=== PATIENT | male | born 1970 | race Caucasian/White ===

== ENCOUNTER 2020-02-11 09:26 | Emergency (ER) | payer MEDICARE, OTHER ==
[2020-02-11 09:35] VITALS: BP 115/63; PULSE 73; TEMP 98.5
--- NOTE | 2020-02-11 09:37 | ED ---
General Adult HPI - General Stated complaint: Weakness Time Seen by Provider: 02/11/20 09:26 Source: patient, EMS, RN notes reviewed, old records reviewed Mode of arrival: EMS Limitations: no limitations - History of Present Illness Initial comments: This is a 49-year-old male with past medical history significant for diabetes high cholesterol and he states maybe high blood pressure. Patient also has a history of hydrocephalus. Patient states this morning he got up and felt weak and felt like his legs were weaker than normal. Patient states he ate some toast and did start feeling somewhat better. Patient states prior to eating the toast he did have some dry heaves but did not vomit. Patient denies any abdominal pain. Patient denies being nauseated currently. Patient denies any chest pain difficulty breathing shortness of breath. Patient states he has a very mild headache but denies any numbness or weakness. Patient denies any recent trauma. Patient denies any fever chills or cough. - Related Data Home Medications Medication Instructions Recorded Confirmed Febuxostat 40 mg PO DAILY 02/11/20 02/11/20 Fenofibrate Nanocrystallized 145 mg PO DAILY 02/11/20 02/11/20 [Fenofibrate] Furosemide [Lasix] 40 mg PO DAILY 02/11/20 02/11/20 Hydrochlorothiazide 12.5 mg PO DAILY 02/11/20 02/11/20 [hydroCHLOROthiazide] Levothyroxine Sodium [Synthroid] 150 mcg PO DAILY 02/11/20 02/11/20 Losartan-Hctz 50-12.5 mg [Hyzaar 1 tab PO DAILY 02/11/20 02/11/20 50-12.5] Sertraline HCl [Zoloft] 150 mg PO DAILY 02/11/20 02/11/20 Simvastatin 40 mg PO DAILY 02/11/20 02/11/20 metFORMIN HCL [Glucophage] 500 mg PO BID 02/11/20 02/11/20 Allergies Allergy/AdvReac Type Severity Reaction Status Date / Time No Known Allergies Allergy Verified 02/11/20 11:05 Review of Systems ROS Statement: Those systems with pertinent positive or pertinent negative responses have been documented in the HPI. ROS Other: All systems not noted in ROS Statement are negative. Past Medical History Past Medical History: Diabetes Mellitus, Hyperlipidemia, Hypertension History of Any Multi-Drug Resistant Organisms: None Reported Past Surgical History: No Surgical Hx Reported Past Psychological History: Depression Smoking Status: Never smoker Past Alcohol Use History: None Reported Past Drug Use History: None Reported General Exam - General Exam Comments Initial Comments: GENERAL: Patient is well-developed and well-nourished. Patient is nontoxic and well- hydrated and is in no acute distress. ENT: Neck is soft and supple. No significant lymphadenopathy is noted. Oropharynx is clear. Moist mucous membranes. Neck has full range of motion without eliciting any pain. There is no thyroid enlargement and no masses were felt. EYES: The sclera were anicteric and conjunctiva were pink and moist. Extraocular movements were intact and pupils were equal round. Eyelids were unremarkable. PULMONARY: Unlabored respirations. Good breath sounds bilaterally. No audible rales rhonchi or wheezing was noted. CARDIOVASCULAR: There is a regular rate and rhythm without any murmurs gallops or rubs. ABDOMEN: Soft and nontender with normal bowel sounds. No palpable organomegaly was noted. There is no palpable pulsatile mass. SKIN: Skin is clear with no lesions or rashes and otherwise unremarkable. NEUROLOGIC: Patient is alert and oriented x3. Cranial nerves II through XII are grossly intact. Motor and sensory are also intact. Normal speech, volume and content. Symmetrical smile. MUSCULOSKELETAL: Normal extremities with adequate strength and full range of motion. LYMPHATICS: No significant lymphadenopathy is noted PSYCHIATRIC: Normal psychiatric evaluation. Limitations: no limitations Course Vital Signs 02/11/20 09:29 Temperature 98.5 F Pulse Rate 73 Respiratory 18 Rate Blood Pressure 115/63 O2 Sat by Pulse 95 Oximetry Medical Decision Making - Medical Decision Making EKG shows normal sinus rhythm at 69 bpm [place] interval 184 QRS is 100 QT interval is 454 QTC is 46. Patient's EKG shows Q waves in leads 3 and aVF. Patient was able to ambulate and felt back to his baseline so patient be di scharged home. Mom will be with the patient and feels as though the patient is back to his baseline as well. - Lab Data Result diagrams: 02/11/20 09:41 02/11/20 09:41 Lab Results 02/11/20 02/11/20 02/11/20 Range/Units 09:41 09:41 09:41 WBC 5.0 (3.8-10.6) k/uL RBC 4.69 (4.30-5.90) m/uL Hgb 12.7 L (13.0-17.5) gm/dL Hct 38.9 L (39.0-53.0) % MCV 82.8 (80.0-100.0) fL MCH 27.2 (25.0-35.0) pg MCHC 32.8 (31.0-37.0) g/dL RDW 14.3 (11.5-15.5) % Plt Count 151 (150-450) k/uL Neutrophils % 73 % Lymphocytes % 18 % Monocytes % 4 % Eosinophils % 3 % Basophils % 1 % Neutrophils # 3.7 (1.3-7.7) k/uL Lymphocytes # 0.9 L (1.0-4.8) k/uL Monocytes # 0.2 (0-1.0) k/uL Eosinophils # 0.1 (0-0.7) k/uL Basophils # 0.0 (0-0.2) k/uL PT 11.0 (9.0-12.0) sec INR 1.1 (<1.2) APTT 24.8 (22.0-30.0) sec Sodium (137-145) mmol/L Potassium (3.5-5.1) mmol/L Chloride (98-107) mmol/L Carbon Dioxide (22-30) mmol/L Anion Gap mmol/L BUN (9-20) mg/dL Creatinine (0.66-1.25) mg/dL Est GFR (CKD-EPI)AfAm (>60 ml/min/1.73 sqM) Est GFR (CKD-EPI)NonAf (>60 ml/min/1.73 sqM) Glucose (74-99) mg/dL Plasma Lactic Acid Alfredo (0.7-2.0) mmol/L Calcium (8.4-10.2) mg/dL Magnesium (1.6-2.3) mg/dL Total Bilirubin (0.2-1.3) mg/dL AST (17-59) U/L ALT (4-49) U/L Alkaline Phosphatase (38-126) U/L Troponin I (0.000-0.034) ng/mL Total Protein (6.3-8.2) g/dL Albumin (3.5-5.0) g/dL Urine Color Light Yellow Urine Appearance Clear (Clear) Urine pH 7.0 (5.0-8.0) Ur Specific [place] 1.005 (1.001-1.035) Urine Protein Negative (Negative) Urine Glucose (UA) Negative (Negative) Urine Ketones Negative (Negative) Urine Blood Negative (Negative) Urine Nitrite Negative (Negative) Urine Bilirubin Negative (Negative) Urine Urobilinogen 2.0 (<2.0) mg/dL Ur Leukocyte Esterase Negative (Negative) 02/11/20 02/11/20 02/11/20 Range/Units 09:41 09:41 09:41 WBC (3.8-10.6) k/uL RBC (4.30-5.90) m/uL Hgb (13.0-17.5) gm/dL Hct (39.0-53.0) % MCV (80.0-100.0) fL MCH (25.0-35.0) pg MCHC (31.0-37.0) g/dL RDW (11.5-15.5) % Plt Count (150-450) k/uL Neutrophils % % Lymphocytes % % Monocytes % % Eosinophils % % Basophils % % Neutrophils # (1.3-7.7) k/uL Lymphocytes # (1.0-4.8) k/uL Monocytes # (0-1.0) k/uL Eosinophils # (0-0.7) k/uL Basophils # (0-0.2) k/uL PT (9.0-12.0) sec INR (<1.2) APTT (22.0-30.0) sec Sodium 141 (137-145) mmol/L Potassium 3.0 L (3.5-5.1) mmol/L Chloride 99 (98-107) mmol/L Carbon Dioxide 33 H (22-30) mmol/L Anion Gap 9 mmol/L BUN 18 (9-20) mg/dL Creatinine 0.65 L (0.66-1.25) mg/dL Est GFR (CKD-EPI)AfAm >90 (>60 ml/min/1.73 sqM) Est GFR (CKD-EPI)NonAf >90 (>60 ml/min/1.73 sqM) Glucose 132 H (74-99) mg/dL Plasma Lactic Acid Alfredo 1.8 (0.7-2.0) mmol/L Calcium 9.4 (8.4-10.2) mg/dL Magnesium 2.0 (1.6-2.3) mg/dL Total Bilirubin 0.8 (0.2-1.3) mg/dL AST 46 (17-59) U/L ALT 21 (4-49) U/L Alkaline Phosphatase 54 (38-126) U/L Troponin I <0.012 (0.000-0.034) ng/mL Total Protein 7.2 (6.3-8.2) g/dL Albumin 4.2 (3.5-5.0) g/dL Urine Color Urine Appearance (Clear) Urine pH (5.0-8.0) Ur Specific [place] (1.001-1.035) Urine Protein (Negative) Urine Glucose (UA) (Negative) Urine Ketones (Negative) Urine Blood (Negative) Urine Nitrite (Negative) Urine Bilirubin (Negative) Urine Urobilinogen (<2.0) mg/dL Ur Leukocyte Esterase (Negative) Disposition Clinical Impression: Weakness, Hypokalemia Disposition: HOME SELF-CARE Condition: Good Instructions (If sedation given, give patient instructions): Weakness (ED), Hypokalemia (ED) Is patient prescribed a controlled substance at d/c from ED?: No Referrals: Ifeanyi Medina DO [Primary Care Provider] - 1-2 days Time of Disposition: 11:53
[2020-02-11 10:11] LABS: INR 1.1 (<1.2); Partial Thromboplastin Time 24.8 sec (22.0-30.0)
[2020-02-11 10:14] LABS: Basophils % (A) 1 %; Eosinophils # (A) 0.1 k/uL (0-0.7); Eosinophils % (A) 3 %; HCT 38.9 % (39.0-53.0); HGB 12.7 gm/dL (13.0-17.5); Lymphocytes # (A) 0.9 k/uL (1.0-4.8); Lymphocytes % (A) 18 %; MCH 27.2 pg (25.0-35.0); MCHC 32.8 g/dL (31.0-37.0); MCV 82.8 fL (80.0-100.0); Mean Platelet Volume 9.1; Monocytes # (A) 0.2 k/uL (0-1.0); Monocytes % (A) 4 %; Neutrophils # (A) 3.7 k/uL (1.3-7.7); Neutrophils % (A) 73 %; Platelet Count 151 k/uL (150-450); RBC 4.69 m/uL (4.30-5.90); RDW 14.3 % (11.5-15.5)
[2020-02-11 10:18] LABS: African American GFR (CKD) >90 (>60 ml/min/1.73 sqM); Albumin 4.2 g/dL (3.5-5.0); Blood Urea Nitrogen 18 mg/dL (9-20); Calcium 9.4 mg/dL (8.4-10.2); Carbon Dioxide 33 mmol/L (22-30); Glucose 132 mg/dL (74-99); Non-African American GFR(CKD) >90 (>60 ml/min/1.73 sqM); Sodium 141 mmol/L (137-145); Total Bilirubin 0.8 mg/dL (0.2-1.3); Total Protein 7.2 g/dL (6.3-8.2)
[2020-02-11 10:19] LABS: ALT 21 U/L (4-49); AST 46 U/L (17-59); Alkaline Phosphatase 54 U/L (38-126)
[2020-02-11 10:35] LABS: Appearance,Urine Clear (Clear); Bilirubin,Urine Negative (Negative); Blood,Urine Negative (Negative); Color,Urine Light Yellow; Glucose,Urine (UA) Negative (Negative); Ketones,Urine Negative (Negative); Leukocyte Esterase,Urine Negative (Negative); Nitrite,Urine Negative (Negative); Protein,Urine Negative (Negative); Specific Gravity,Urine 1.005 (1.001-1.035)
[2020-02-11 10:41] LABS: Anion Gap 9 mmol/L; Chloride 99 mmol/L (98-107)
--- NOTE | 2020-02-11 10:54 | XR ---
EXAMINATION TYPE: XR chest 2V DATE OF EXAM: 02/11/2020 COMPARISON: NONE HISTORY: Syncope and weakness. TECHNIQUE: Frontal and lateral views of the chest are obtained. FINDINGS: There is no focal air space opacity, pleural effusion, or pneumothorax seen. The cardiac silhouette size is enlarged. The osseous structures are intact. IMPRESSION: Cardiomegaly without acute pulmonary process.
--- NOTE | 2020-02-11 10:56 | CT ---
EXAMINATION TYPE: CT brain wo con DATE OF EXAM: 02/11/2020 COMPARISON: None. HISTORY: Weakness CT DLP: 1084.4 mGycm. Automated Exposure Control for Dose Reduction was Utilized. TECHNIQUE: CT scan of the head is performed without contrast. FINDINGS: There is no acute intracranial hemorrhage or midline shift identified. Mild ventricular a nd sulcal prominence. Ventricles size slightly more prominent than degree of sulcal effacement, corre late for mild hydrocephalus. Increased CSF prominence posterior aspect posterior fossa felt to reflec t markell cisterna magna. Mild/moderate mucosal thickening in the left maxillary sinus. Remainder parana santana sinuses are clear. Globes are intact bilaterally. IMPRESSION: No acute intracranial hemorrhage or midline shift is seen. Mild generalized atrophy and markell cisterna magna with mild hydrocephalus. Correlation with old outside CT or MRI would be benefici al.
[2020-02-11] MEDS ORDERED: POTASSIUM CHLORIDE ER 20 MEQ TAB.ER PO STA (11:03)
[2020-02-11] MEDS ORDERED: ONDANSETRON 4 MG ODT STARTER PACK 2 TAB BTL PO STA (12:23)
[2020-02-11 12:32] VITALS: RESP 16
== END 2020-02-11 12:30 | disposition home or self-care (01) ==
LOC: EC 09:26
DX: E87.6 Hypokalemia (principal); R53.1 Weakness; F32.9 Major depressive disorder, single episode, unspecified; E11.9 Type 2 diabetes mellitus without complications; E78.5 Hyperlipidemia, unspecified; I10 Essential (primary) hypertension; Z79.84 Long term (current) use of oral hypoglycemic drugs; Z79.890 Hormone replacement therapy; Z79.899 Other long term (current) drug therapy
CPT/HCPCS: 36415; 93005; 80053; 83605; 83735; 84484; 85025; 85610; 85730; 81003; 71046; 70450; 99285; S0119

== ENCOUNTER 2021-11-03 20:07 | Inpatient (IN) | payer MEDICARE, OTHER ==
--- NOTE | 2021-11-03 23:04 | CT ---
EXAMINATION TYPE: CT brain wo con DATE OF EXAM: 11/03/2021 COMPARISON: 02/11/2020 HISTORY: dizzy, AMS. CT DLP: 1098.4 mGycm Automated exposure control for dose reduction was used. Images of the brain obtained without contrast. There is large cisterna magna which is a normal variant. Ventricles have fairly normal size. There is no mass effect or midline shift. No sign of intracranial hemorrhage. The calvarium is intact. No joey dence of cerebral edema. IMPRESSION: No acute intracranial abnormality. No change compared to the old exam. Right maxillary sinusitis note d. This appears new compared to the old exam.
[2021-11-03 23:16] LABS: Anisocytosis Slight; Basophils % (A) 0 %; Eosinophils # (A) 0.2 k/uL (0-0.7); Eosinophils % (A) 5 %; HCT 32.4 % (39.0-53.0); HGB 10.2 gm/dL (13.0-17.5); Hypochromasia Slight; Lymphocytes # (A) 1.1 k/uL (1.0-4.8); Lymphocytes % (A) 32 %; MCH 28.5 pg (25.0-35.0); MCHC 31.6 g/dL (31.0-37.0); MCV 90.1 fL (80.0-100.0); Mean Platelet Volume 10.3; Monocytes # (A) 0.2 k/uL (0-1.0); Monocytes % (A) 6 %; Neutrophils # (A) 1.8 k/uL (1.3-7.7); Neutrophils % (A) 55 %; Poikilocytosis Slight; RBC 3.59 m/uL (4.30-5.90); RDW 17.6 % (11.5-15.5); WBC 3.3 k/uL (3.8-10.6)
[2021-11-03 23:24] LABS: INR 0.9 (<1.2); Partial Thromboplastin Time 28.6 sec (22.0-30.0); Prothrombin Time 10.4 sec (9.0-12.0)
[2021-11-03 23:29] LABS: Platelet Count 103 k/uL (150-450)
[2021-11-03 23:35] LABS: ALT 46 U/L (4-49); AST 63 U/L (17-59); African American GFR (CKD) >90 (>60 ml/min/1.73 sqM); Albumin 3.9 g/dL (3.5-5.0); Alkaline Phosphatase 164 U/L (38-126); Anion Gap 6 mmol/L; Blood Urea Nitrogen 16 mg/dL (9-20); Calcium 9.2 mg/dL (8.4-10.2); Carbon Dioxide 32 mmol/L (22-30); Chloride 113 mmol/L (98-107); Glucose 90 mg/dL (74-99); Non-African American GFR(CKD) >90 (>60 ml/min/1.73 sqM); Potassium 3.6 mmol/L (3.5-5.1); Sodium 151 mmol/L (137-145); Total Bilirubin 0.7 mg/dL (0.2-1.3); Total Protein 6.9 g/dL (6.3-8.2)
[2021-11-04] MEDS ORDERED: NALOXONE 0.4 MG/ML 1 ML VIAL IV PRN (05:54)
--- NOTE | 2021-11-04 05:57 | P.HPIM ---
History of Present Illness H&P Date: 11/04/21 The patient is a 51-year-old male with a PMH of hydrocephalus with developmental disability, 2 DM, hypertension, and hyperlipidemia who presents to the emergency room for fatigue. Patient notes that over the past 24-48 hours, he has felt weaker than usual. Notes that at baseline he uses a cane to ambulate. He notes that he has been having a difficult time walking due to lightheadedness. Report s somewhat of a poor oral intake over the past 2-3 days . Denies experiencing abdominal pain or diarrhea. Also denied changes in speech, visual disturbance, focal weakness, numbness, tingling, fever, chills, chest pain, shortness of breath. CT brain in the emergency room revealed right maxillary sinusitis but was otherwise unremarkable. Laboratory evaluation was remarkable for sodium 151, CO2 32, troponin less than 0.012, PERRLA, 3, and TSH 6.3. Review of systems: Pertinent positives and negatives as discussed in HPI, a complete review of systems was performed and all other systems are negative. Physical examination: General: non toxic, no distress, appears at stated age, morbidly obese Derm: no unusual ecchymoses, warm, dry Head: atraumatic, normocephalic, symmetric Eyes: EOMI, no lid lag, anicteric sclera, pupils equal round reactive to light ENT: Nose and ears atraumatic, no thrush, no pharyngeal erythema Neck: No thyromegaly, no cervical lymphadenopathy, trachea midline, supple Mouth: no lip lesion, mucus membranes moist Cardiovascular: S1S2 reg, no murmur, positive posterior tibial pulse bilateral, chronic venous stasis changes bilateral lower extremities, capillary refill less than 2 seconds Lungs: CTA bilateral, no rhonchi, no rales , no accessory muscle use Abdominal: soft, nontender to palpation, no guarding, no appreciable organomegaly, normal bowel sounds Ext: no gross muscle atrophy, muscle strength 5 out of 5 in all 4 extremities grossly, no contractures, Neuro: CN II-XI grossly intact, light touch intact all 4 extremities, finger to nose within normal limits, Psych: Somewhat lethargic, oriented to person, place, time Assessment/plan Lethargy and lightheadedness, may be due to poor oral intake -IV fluids -Fall precautions -Neurology consult Chronic conditions: Type 2 DM, hypertension, hyperlipidemia -Continue with home meds -Insulin sliding scale and blood glucose monitoring DVT prophylaxis -Heparin subq The patient is admitted with an anticipated greater than 2 midnight stay for evaluation of lethargy CODE STATUS: Full Code Discussed with: Patient Anticipated discharge date: in am Anticipated discharge place: Home Past Medical History Past Medical History: Diabetes Mellitus, Hyperlipidemia, Hypertension Additional Past Medical History / Comment(s): hydrocephalus History of Any Multi-Drug Resistant Organisms: None Reported Past Surgical History: No Surgical Hx Reported Past Psychological History: Depression Smoking Status: Never smoker Past Alcohol Use History: None Reported Past Drug Use History: None Reported - Past Family History Mother Brother(s) Family Medical History: Hypertension Medications and Allergies Home Medications Medication Instructions Recorded Confirmed Type Febuxostat 40 mg PO DAILY 02/11/20 02/11/20 History Fenofibrate Nanocrystallized 145 mg PO DAILY 02/11/20 02/11/20 History [Fenofibrate] Furosemide [Lasix] 40 mg PO DAILY 02/11/20 02/11/20 History Hydrochlorothiazide 12.5 mg PO DAILY 02/11/20 02/11/20 History [hydroCHLOROthiazide] Levothyroxine Sodium [Synthroid] 150 mcg PO DAILY 02/11/20 02/11/20 History Losartan-Hctz 50-12.5 mg [Hyzaar 1 tab PO DAILY 02/11/20 02/11/20 History 50-12.5] Sertraline HCl [Zoloft] 150 mg PO DAILY 02/11/20 02/11/20 History Simvastatin 40 mg PO DAILY 02/11/20 02/11/20 History metFORMIN HCL [Glucophage] 500 mg PO BID 02/11/20 02/11/20 History Allergies Allergy/AdvReac Type Severity Reaction Status Date / Time No Known Allergies Allergy Verified 02/11/20 11:05 Physical Exam Vitals: Vital Signs Pulse Resp BP Pulse Ox 11/04/21 03:15 42 L 16 137/104 11/04/21 02:15 38 L 16 11/03/21 22:06 64 20 118/75 98 Intake and Output 11/03/21 11/03/21 11/04/21 14:59 22:59 06:59 Other: Weight 103.419 kg Results CBC & Chem 7: 11/03/21 22:34 11/03/21 22:34 Labs: Abnormal Lab Results - Last 24 Hours (Table) 11/03/21 11/03/21 11/03/21 Range/Units 22:34 22:34 22:34 WBC 3.3 L (3.8-10.6) k/uL RBC 3.59 L (4.30-5.90) m/uL Hgb 10.2 L (13.0-17.5) gm/dL Hct 32.4 L (39.0-53.0) % RDW 17.6 H (11.5-15.5) % Plt Count 103 L (150-450) k/uL Sodium 151 H (137-145) mmol/L Chloride 113 H (98-107) mmol/L Carbon Dioxide 32 H (22-30) mmol/L AST 63 H (17-59) U/L Alkaline Phosphatase 164 H (38-126) U/L TSH 6.360 H (0.465-4.680) mIU/L
[2021-11-04] MEDS ORDERED: SODIUM CHLORIDE 0.9% 1,000 ML IV ONE ×2 (06:11→23:25)
--- NOTE | 2021-11-04 06:34 | ED ---
General Adult HPI - General Chief complaint: Neuro Symptoms/Deficit Stated complaint: Sick/Dizziness Time Seen by Provider: 11/04/21 00:49 Source: patient Mode of arrival: ambulatory Limitations: no limitations - History of Present Illness Initial comments: This patient is a 51-year-old man who is here with complaint of dizziness. History is difficult to obtain as the patient is very somnolent. He is able to give some history and some history is from the patient's brother. The patient had been living with family until his mother approximately 14 months ago. He then stayed with his brother for a little over a year and for the past 2 months has been living and in [facility] home. Patient's brother states that over that time he has had difficulty sleeping and the patient complains of feeling dizzy for the past week or so. Patient denies headache, chest pain, dyspnea, fever or chills and cough. He is not able to characterize the dizziness well as he is very somnolent. Patient denies sensory change. No focal weakness. Onset/Timin -: week(s) Severity scale (1-10): 0 Consistency: constant Improves with: none Worsens with: none Associated Symptoms: denies other symptoms, other (Dizziness) Treatments Prior to Arrival: none - Related Data Home Medications Medication Instructions Recorded Confirmed Febuxostat 40 mg PO DAILY 02/11/20 11/04/21 Hydrochlorothiazide 12.5 mg PO DAILY 02/11/20 11/04/21 [hydroCHLOROthiazide] Levothyroxine Sodium [Synthroid] 150 mcg PO DAILY 02/11/20 11/04/21 Sertraline HCl [Zoloft] 100 mg PO DAILY 02/11/20 11/04/21 Simvastatin 40 mg PO DAILY 02/11/20 11/04/21 Losartan [Cozaar] 50 mg PO DAILY 11/04/21 11/04/21 Melatonin 3 mg PO HS 11/04/21 11/04/21 Allergies Allergy/AdvReac Type Severity Reaction Status Date / Time No Known Allergies Allergy Verified 11/04/21 08:38 Review of Systems ROS Statement: Those systems with pertinent positive or pertinent negative responses have been documented in the HPI. ROS Other: All systems not noted in ROS Statement are negative. Constitutional: Denies: fever, chills, weakness Eyes: Denies: vision change Respiratory: Denies: cough, dyspnea Cardiovascular: Denies: chest pain, palpitations, syncope Gastrointestinal: Denies: abdominal pain, nausea, vomiting Genitourinary: Denies: dysuria, hematuria Musculoskeletal: Denies: back pain Skin: Denies: rash Neurological: Reports: as per HPI, confusion, vertigo. Denies: headache, weakness, numbness Past Medical History Past Medical History: Diabetes Mellitus, Hyperlipidemia, Hypertension Additional Past Medical History / Comment(s): hydrocephalus History of Any Multi-Drug Resistant Organisms: None Reported Past Surgical History: No Surgical Hx Reported Past Psychological History: Depression Smoking Status: Never smoker Past Alcohol Use History: None Reported Past Drug Use History: None Reported - Past Family History Mother Brother(s) Family Medical History: Hypertension General Exam Limitations: no limitations General appearance: other (Patient is somnolent but arouses to voice.) Head exam: Present: atraumatic, normocephalic Eye exam: Present: normal appearance, PERRL, EOMI, nystagmus. Absent: scleral icterus, conjunctival injection ENT exam: Present: mucous membranes dry Neck exam: Present: normal inspection Respiratory exam: Present: normal lung sounds bilaterally. Absent: respiratory distress, wheezes, rales, rhonchi, stridor Cardiovascular Exam: Present: normal rhythm, bradycardia, normal heart sounds. Absent: systolic murmur, diastolic murmur, rubs, gallop GI/Abdominal exam: Present: soft. Absent: distended, tenderness, guarding, rebound, rigid, mass, pulsatile mass Extremities exam: Present: normal capillary refill, pedal edema (Bilateral edema to the upper tibia). Absent: tenderness, calf tenderness Back exam: Present: normal inspection Neurological exam: Present: CN II-XII intact, other (Somnolent but easily arousable. Patient's follow simple commands without focal deficit. Not following complex commands but patient very somnolent). Absent: alert, motor sensory deficit Skin exam: Present: warm, dry, intact, normal color. Absent: rash Course Vital Signs 11/03/21 11/04/21 11/04/21 22:06 02:15 03:15 Pulse Rate 64 38 L 42 L Respiratory 20 16 16 Rate Blood Pressure 118/75 137/104 O2 Sat by Pulse 98 Oximetry Medical Decision Making - Lab Data Result diagrams: 11/06/21 05:46 11/06/21 05:46 Lab Results 11/03/21 11/03/21 11/03/21 Range/Units 22:34 22:34 22:34 WBC 3.3 L (3.8-10.6) k/uL RBC 3.59 L (4.30-5.90) m/uL Hgb 10.2 L (13.0-17.5) gm/dL Hct 32.4 L (39.0-53.0) % MCV 90.1 (80.0-100.0) fL MCH 28.5 (25.0-35.0) pg MCHC 31.6 (31.0-37.0) g/dL RDW 17.6 H (11.5-15.5) % Plt Count 103 L (150-450) k/uL MPV 10.3 Neutrophils % 55 % Lymphocytes % 32 % Monocytes % 6 % Eosinophils % 5 % Basophils % 0 % Neutrophils # 1.8 (1.3-7.7) k/uL Lymphocytes # 1.1 (1.0-4.8) k/uL Monocytes # 0.2 (0-1.0) k/uL Eosinophils # 0.2 (0-0.7) k/uL Basophils # 0.0 (0-0.2) k/uL Hypochromasia Slight Poikilocytosis Slight Anisocytosis Slight PT 10.4 (9.0-12.0) sec INR 0.9 (<1.2) APTT 28.6 (22.0-30.0) sec Sodium 151 H (137-145) mmol/L Potassium 3.6 (3.5-5.1) mmol/L Chloride 113 H (98-107) mmol/L Carbon Dioxide 32 H (22-30) mmol/L Anion Gap 6 mmol/L BUN 16 (9-20) mg/dL Creatinine 0.75 (0.66-1.25) mg/dL Est GFR (CKD-EPI)AfAm >90 (>60 ml/min/1.73 sqM) Est GFR (CKD-EPI)NonAf >90 (>60 ml/min/1.73 sqM) Glucose 90 (74-99) mg/dL Calcium 9.2 (8.4-10.2) mg/dL Total Bilirubin 0.7 (0.2-1.3) mg/dL AST 63 H (17-59) U/L ALT 46 (4-49) U/L Alkaline Phosphatase 164 H (38-126) U/L Troponin I (0.000-0.034) ng/mL Total Protein 6.9 (6.3-8.2) g/dL Albumin 3.9 (3.5-5.0) g/dL TSH (0.465-4.680) mIU/L Coronavirus (PCR) (Not Detectd) Influenza Type A RNA (Not Detectd) Influenza Type B (PCR) (Not Detectd) 11/03/21 11/03/21 11/04/21 Range/Units 22:34 22:34 01:53 WBC (3.8-10.6) k/uL RBC (4.30-5.90) m/uL Hgb (13.0-17.5) gm/dL Hct (39.0-53.0) % MCV (80.0-100.0) fL MCH (25.0-35.0) pg MCHC (31.0-37.0) g/dL RDW (11.5-15.5) % Plt Count (150-450) k/uL MPV Neutrophils % % Lymphocytes % % Monocytes % % Eosinophils % % Basophils % % Neutrophils # (1.3-7.7) k/uL Lymphocytes # (1.0-4.8) k/uL Monocytes # (0-1.0) k/uL Eosinophils # (0-0.7) k/uL Basophils # (0-0.2) k/uL Hypochromasia Poikilocytosis Anisocytosis PT (9.0-12.0) sec INR (<1.2) APTT (22.0-30.0) sec Sodium (137-145) mmol/L Potassium (3.5-5.1) mmol/L Chloride (98-107) mmol/L Carbon Dioxide (22-30) mmol/L Anion Gap mmol/L BUN (9-20) mg/dL Creatinine (0.66-1.25) mg/dL Est GFR (CKD-EPI)AfAm (>60 ml/min/1.73 sqM) Est GFR (CKD-EPI)NonAf (>60 ml/min/1.73 sqM) Glucose (74-99) mg/dL Calcium (8.4-10.2) mg/dL Total Bilirubin (0.2-1.3) mg/dL AST (17-59) U/L ALT (4-49) U/L Alkaline Phosphatase (38-126) U/L Troponin I <0.012 (0.000-0.034) ng/mL Total Protein (6.3-8.2) g/dL Albumin (3.5-5.0) g/dL TSH 6.360 H (0.465-4.680) mIU/L Coronavirus (PCR) (Not Detectd) Influenza Type A RNA Not Detected (Not Detectd) Influenza Type B (PCR) Not Detected (Not Detectd) 11/04/21 Range/Units 01:53 WBC (3.8-10.6) k/uL RBC (4.30-5.90) m/uL Hgb (13.0-17.5) gm/dL Hct (39.0-53.0) % MCV (80.0-100.0) fL MCH (25.0-35.0) pg MCHC (31.0-37.0) g/dL RDW (11.5-15.5) % Plt Count (150-450) k/uL MPV Neutrophils % % Lymphocytes % % Monocytes % % Eosinophils % % Basophils % % Neutrophils # (1.3-7.7) k/uL Lymphocytes # (1.0-4.8) k/uL Monocytes # (0-1.0) k/uL Eosinophils # (0-0.7) k/uL Basophils # (0-0.2) k/uL Hypochromasia Poikilocytosis Anisocytosis PT (9.0-12.0) sec INR (<1.2) APTT (22.0-30.0) sec Sodium (137-145) mmol/L Potassium (3.5-5.1) mmol/L Chloride (98-107) mmol/L Carbon Dioxide (22-30) mmol/L Anion Gap mmol/L BUN (9-20) mg/dL Creatinine (0.66-1.25) mg/dL Est GFR (CKD-EPI)AfAm (>60 ml/min/1.73 sqM) Est GFR (CKD-EPI)NonAf (>60 ml/min/1.73 sqM) Glucose (74-99) mg/dL Calcium (8.4-10.2) mg/dL Total Bilirubin (0.2-1.3) mg/dL AST (17-59) U/L ALT (4-49) U/L Alkaline Phosphatase (38-126) U/L Troponin I (0.000-0.034) ng/mL Total Protein (6.3-8.2) g/dL Albumin (3.5-5.0) g/dL TSH (0.465-4.680) mIU/L Coronavirus (PCR) Not Detected (Not Detectd) Influenza Type A RNA (Not Detectd) Influenza Type B (PCR) (Not Detectd) Disposition Clinical Impression: Hypernatremia, History of hydrocephalus, Altered mental status Disposition: ADMITTED IP TO THIS HOSP
[2021-11-04 06:56] LABS: Appearance,Urine Clear (Clear); Bilirubin,Urine Negative (Negative); Blood,Urine Negative (Negative); Color,Urine Light Yellow; Glucose,Urine (UA) Negative (Negative); Ketones,Urine Negative (Negative); Leukocyte Esterase,Urine Negative (Negative); Nitrite,Urine Negative (Negative); Protein,Urine Negative (Negative); Specific Gravity,Urine 1.004 (1.001-1.035); Urobilinogen,Urine <2.0 mg/dL (<2.0)
[2021-11-04 06:56] LABS: Glucose,Whole Blood 77 mg/dL (75-99)
[2021-11-04] MEDS ORDERED: ceFAZolin 1 GM in SODIUM CHLORIDE 0.9% IRRIG BTL 250 ML IRRIGATION PRN (07:00)
[2021-11-04] MEDS: HEPARIN SODIUM,PORCINE/PF 5,000 UNIT/0.5 ML SYRINGE SQ SCH ×2 (07:06→16:44)
[2021-11-04] MEDS: SODIUM CHLORIDE 0.9% 1,000 ML IV SCH ×5 (07:06→16:42)
[2021-11-04] MEDS: LORazepam 2 MG/ML INJ IV STA ×2 (07:16→16:35)
[2021-11-04] MEDS: MORPHINE SULFATE 4 MG/ML SYRINGE IVP PRN (07:16)
[2021-11-04] MEDS ORDERED: IV FLUID CONTINUATION 1,000 ML IV ONE ×3 (09:14→13:20)
[2021-11-04] MEDS ORDERED: LIDOCAINE 1% INJ 10MG/ML (30 ML VIAL-PF) SQ ONE ×2 (09:28→13:43)
--- NOTE | 2021-11-04 09:37 | P.CRDCN ---
History of Present Illness Consult date: 11/04/21 History of present illness: HISTORY OF PRESENT ILLNESS: This is a 51-year-old male with a past medical history significant for hydrocephalus, diabetes, hypertension, and hyperlipidemia. 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 We have been asked to see the patient in consultation for bradycardia. Patient examined at the bedside. Patient pr esented to the hospital with a chief complaint of dizziness. The patient states he has been feeling dizzy for the past few days. He denies having any chest pain or pressure. Denies any shortness of breath. The patient was found to have frequent episodes of bradycardia in the emergency room. The patient's longest pause was around 22 seconds. The patients heart rate is currently in the 40s at the time of examination. The patient is not prescribed any AV martha blocking agents on an outpatient basis. * EKG reveals sinus bradycardia cardiac without signs of acute ischemia * Laboratory data: WBC 3.3. Hemoglobin 10.2. Platelet count 103. Sodium 151. Potassium 3.6. BUN 16. Creatinine 0.75. Troponin negative 1 * Current home cardiac medications include fenofibrate 145 mg daily, Lasix 40 mg daily, hydrochlorothiazide 12.5 mg daily, losartan-hydrochlorothiazide 50- 12.5mg daily, and simvastatin 40 mg daily REVIEW OF SYSTEMS: At the time of my exam: CONSTITUTIONAL: Denies fever or chills. HEENT: Denies blurred vision, vision changes, or eye pain. Denies hemoptysis CARDIOVASCULAR: Denies chest pain. Denies orthopnea. Denies PND. Denies palpitations RESPIRATORY: Denies shortness of breath. GASTROINTESTINAL: Denies abdominal pain. Denies nausea or vomiting. HEMATOLOGIC: Denies bleeding disorders. GENITOURINARY: Denies any blood in urine. SKIN: Denies pruitis. Denies rash. PHYSICAL EXAM: VITAL SIGNS: Reviewed. GENERAL: Well-developed in no acute distress. HEENT: Head is normocephalic. Pupils are equal, round. Sclerae anicteric. Mucous membranes of the mouth are moist. Neck supple. No JVD or thyromegaly LUNGS: Respirations even and unlabored. Lungs essentially clear to auscultation bilaterally. HEART: Regular rate and rhythm. S1 and S2 heard. ABDOMEN: Soft. Nondistended. Nontender. EXTREMITIES: Normal range of motion. No clubbing or cyanosis. Peripheral pulses intact. No lower extremity edema NEUROLOGIC: Awake and alert. Oriented x 3. ASSESSMENT: Sick sinus syndrome Sinus pause/arrest Dizziness History of hydrocephalus Hypertension Hyperlipidemia Diabetes PLAN: Neurology consulted for evaluation. Await recommendations Continue telemetry monitoring Check TSH Obtain 2-D echo to assess cardiac structure and function Patient to undergo temporary pacemaker insertion with Dr. Bee today Further recommendations pending patient course Nurse practitioner note has been reviewed by physician. Signing provider agrees with the documented findings, assessment, and plan of care. Past Medical History Past Medical History: Diabetes Mellitus, Hyperlipidemia, Hypertension Additional Past Medical History / Comment(s): hydrocephalus History of Any Multi-Drug Resistant Organisms: None Reported Past Surgical History: No Surgical Hx Reported Past Psychological History: Depression Smoking Status: Never smoker Past Alcohol Use History: None Reported Past Drug Use History: None Reported - Past Family History Mother Brother(s) Family Medical History: Hypertension Medications and Allergies Home Medications Medication Instructions Recorded Confirmed Type Febuxostat 40 mg PO DAILY 02/11/20 11/04/21 History Hydrochlorothiazide 12.5 mg PO DAILY 02/11/20 11/04/21 History [hydroCHLOROthiazide] Levothyroxine Sodium [Synthroid] 150 mcg PO DAILY 02/11/20 11/04/21 History Sertraline HCl [Zoloft] 100 mg PO DAILY 02/11/20 11/04/21 History Simvastatin 40 mg PO DAILY 02/11/20 11/04/21 History Losartan [Cozaar] 50 mg PO DAILY 11/04/21 11/04/21 History Melatonin 3 mg PO HS 11/04/21 11/04/21 History Allergies Allergy/AdvReac Type Severity Reaction Status Date / Time No Known Allergies Allergy Verified 11/04/21 08:38 Physical Exam Vitals: Vital Signs Pulse Resp BP Pulse Ox 11/04/21 07:00 55 L 18 94/62 99 11/04/21 05:55 42 L 16 106/57 98 11/04/21 03:15 42 L 16 137/104 11/04/21 02:15 38 L 16 11/03/21 22:06 64 20 118/75 98 Intake and Output 11/03/21 11/04/21 11/04/21 22:59 06:59 14:59 Other: Weight 103.419 kg Results 11/03/21 22:34 11/03/21 22:34 Cardiac Enzymes 11/03/21 11/03/21 Range/Units 22:34 22:34 AST 63 H (17-59) U/L Troponin I <0.012 (0.000-0.034) ng/mL Coagulation 11/03/21 Range/Units 22:34 PT 10.4 (9.0-12.0) sec APTT 28.6 (22.0-30.0) sec CBC 11/03/21 Range/Units 22:34 WBC 3.3 L (3.8-10.6) k/uL RBC 3.59 L (4.30-5.90) m/uL Hgb 10.2 L (13.0-17.5) gm/dL Hct 32.4 L (39.0-53.0) % Plt Count 103 L (150-450) k/uL Comprehensive Metabolic Panel 11/03/21 Range/Units 22:34 Sodium 151 H (137-145) mmol/L Potassium 3.6 (3.5-5.1) mmol/L Chloride 113 H (98-107) mmol/L Carbon Dioxide 32 H (22-30) mmol/L BUN 16 (9-20) mg/dL Creatinine 0.75 (0.66-1.25) mg/dL Glucose 90 (74-99) mg/dL Calcium 9.2 (8.4-10.2) mg/dL AST 63 H (17-59) U/L ALT 46 (4-49) U/L Alkaline Phosphatase 164 H (38-126) U/L Total Protein 6.9 (6.3-8.2) g/dL Albumin 3.9 (3.5-5.0) g/dL Current Medications Generic Name Dose Route Start Last Admin Trade Name Freq PRN Reason Stop Dose Admin Heparin Sodium (Porcine) 5,000 unit 11/04/21 08:00 11/04/21 07:06 Heparin Sodium,Porcine/Pf 5,000 Unit/0.5 Ml Syringe SQ 5,000 unit Q8HR XAVIER Administration Sodium Chloride 1,000 mls @ 75 mls/hr 11/04/21 06:00 11/04/21 07:06 Saline 0.9% IV 75 mls/hr .[id number] XAVIER Administration Insulin Aspart 0 unit 11/04/21 07:30 Insulin Aspart (Novolog) 100 Unit/Ml Vial SQ ACHS XAVIER Protocol Morphine Sulfate 4 mg 11/04/21 06:55 Morphine Sulfate 4 Mg/Ml Syringe IVP Q3HR PRN Pain Naloxone HCl 0.2 mg 11/04/21 05:54 Naloxone 0.4 Mg/Ml 1 Ml Vial IV Q2M PRN Opioid Reversal Intake and Output 11/03/21 11/04/21 11/04/21 22:59 06:59 14:59 Other: Weight 103.419 kg 11/03/21 22:34 11/03/21 22:34
--- NOTE | 2021-11-04 09:50 | P.PCN ---
Date of Procedure: 11/04/21 Preoperative Diagnosis: Sick sinus syndrome with long sinus pauses up to 10-20 seconds associated with dizziness Postoperative Diagnosis: The same Procedure(s) Performed: Insertion of the temporary pacemaker Description of Procedure: This patient is admitted to the emergency room with complaints of dizziness. He was found to have evidence of sinus pauses up to 10-20 seconds associated with the dizziness. He is advised to have a temporary pacemaker and also permanent pacemaker, subsequently. Patient understood the risks and benefits and consented. Patient was brought to the lab in a fasting state. He was prepped and draped in the usual fashion. The right groin is infiltrated with lidocaine. The right femoral vein was entered using Seldinger technique and a 6-Macedonian sheath was advanced into the femoral vein. A 5-Macedonian balloontipped temporary pacemaker wire was advanced and was placed near the apex of the right ventricle. Satisfactory threshold obtained. The pacemaker is set at a rate of 40 and output of 3 amps. The duration of the procedure was 17 minutes. Final impression: #1. Sick sinus syndrome. #2. Status post temporary pacemaker insertion
[2021-11-04 10:15] LABS: Glucose,Whole Blood 60 mg/dL (75-99)
[2021-11-04 10:38] LABS: Glucose,Whole Blood 62 mg/dL (75-99)
[2021-11-04 10:51] LABS: Glucose,Whole Blood 75 mg/dL (75-99)
[2021-11-04] MEDS ORDERED: IOPAMIDOL-370 50ML BTL INJ ONE (13:25)
[2021-11-04] MEDS ORDERED: MIDAZOLAM 2 MG/2 ML VIAL IV ONE (13:40)
[2021-11-04] MEDS ORDERED: fentaNYL (PF) 50 MCG/ML 2 ML AMP IV ONE (13:40)
--- NOTE | 2021-11-04 15:00 | P.PCN ---
Date of Procedure: 11/04/21 Preoperative Diagnosis: Sick sinus syndrome with long pauses and near-syncope Postoperative Diagnosis: The same Procedure(s) Performed: Permanent pacemaker implantation and also adjustment of the temporary pacemaker, axillary venography Description of Procedure: HISTORY: This patient is admitted to the hospital with complaints of dizziness. He was Found to have sinus pauses of more than 10 seconds associated with dizziness. Patient had a temporary pacemaker, this morning. Patient is brought in for permanent pacemaker implantation. Patient and family were explained the risks and benefits of the procedure. CONSENT:I have discussed the risks, benefits and alternative therapies for the above-mentioned procedure and for both sedation/analgesia as well as necessary blood product administration, if indicated, as they pertain to this patient. The patient has indicated understanding and acceptance of the risks and procedures discussed. His sister is involved in the decision-making. PROCEDURE: Patient was brought to the lab in a fasting state. It was found that can temporary pacemaker was not capturing properly. Fluoroscopy showed that the temporary pacemaker moved to pulmonary artery. Under aseptic precautions, the lead was repositioned to the right ventricular apical septal area 2. Subsequently Patient was prepped and draped in the usual fashion. Patient was given IV sedation with fentanyl and Versed. The skin below the left clavicle was infiltrated with lidocaine. An incision was made parallel to deltopectoral groove was deepened until the pectoral fascia was exposed. A pocket was created by blunt dissection and cautery. Axillary venography was performed to delineate the course of the axillary vein. 2 sticks were performed into extrathoracic portion of the axillary vein and 2 sheaths were advanced over the guidewires and left in subclavian vein. Conscious Sedation: Versed 1.5 mg Fentanyl: 25 g Duration 47 minutes LEADS: ATRIAL:. This is manufactured by [employer]. Model number is 5076-45 and the serial number is [id number] VENTRICULAR: This is manufactured by [employer]. Model number is 5076-52 and the serial number is [id number] The ventricular lead is maneuvered l with help of a straight and curved stylets into the left ventricle apical region. Satisfactory position was obtained and threshold measurements were made. The atrial lead was then maneuvered into the right atrial appendage. And thresholds were obtained. THRESHOLDS: ATRIUM: The minimum patient threshold is 0.75 V at pulse width of 0.4. The impedance is 475 P-wave: 2.8 VENTRICLE:. The minimum patient threshold is 0.75 V at a pulse width of 0.4. The impedance is 470 R-wave: 6.5 The leads and pulse generator remained in the pocket after it was washed with antibiotics. Pocket was closed in the usual fashion. The fascia was closed with 2-0 Prolene ,the subcutaneous tissue was closed with 3-0 Prolene and the skin was closed with 4-0 Prolene. PROGRAMMING: MODE: AAIR to DDDR RATE: 60-130 OUTPUT: Atrium: 3.5 V Ventricle: 3.5 V FINAL IMPRESSION: #1. Readjustment of temporary pacemaker #2 axillary venography #3. Insertion of dual-chamber pacemaker COMPLICATIONS: None PLAN: Patient will be monitored on the telemetry unit. Prophylactic antibacterial be continued. Chest x-ray in the morning
[2021-11-04] MEDS: INSULIN ASPART (NovoLOG) 100 UNIT/ML VIAL SQ SCH ×4 (16:35→20:42)
[2021-11-04 16:42] LABS: Glucose,Whole Blood 80 mg/dL (75-99)
[2021-11-04] MEDS ORDERED: ACETAMINOPHEN TAB 325 MG TAB PO PRN (17:21)
--- NOTE | 2021-11-04 20:16 | HP ---
HISTORY AND PHYSICAL CHIEF COMPLAINTS: Weakness and near-syncope. HISTORY OF PRESENT ILLNESS: This 51-year-old gentleman with a past medical history of multiple medical problems, including diabetes mellitus, hypertension, hyperlipidemia, being followed by Dr. Medina in the outpatient setting, was admitted with weakness. The patient was found to have significant bradycardia, sick sinus syndrome. The pauses were lasting up to 22 seconds and Cardiology saw the patient and a permanent pacemaker was implanted. The patient is mildly confused, unable to give a coherent history at this time. Most of the history is taken from my discussion with staff and review of the chart. I reviewed the basic labs. The blood sugars were within normal glycemic range and TSH was elevated at 6.36. Sodium was 151. Patient was dehydrated. There is no history any trauma, rigors or chills. PAST MEDICAL HISTORY: Reviewed; includes diabetes mellitus and hypertension. HOME MEDICATIONS: Also reviewed. They include simvastatin and melatonin. ALLERGIES: NONE. Family history, social history, review of systems could not be taken. PHYSICAL EXAMINATION: Pulse is 60, blood pressure 140/72, respiration 15. HEENT: Conjunctivae normal. Oral mucosa dry. NECK: No jugular venous distention. CARDIOVASCULAR: S1, S2 muffled. RESPIRATION: Breath sounds diminished at the bases. A few scattered rhonchi. ABDOMEN: Soft, nontender. LEGS: No edema. No swelling. NERVOUS SYSTEM: Nervous system could not be examined completely. SKIN: No ulcer, rash, bleeding. LABS: Reviewed. They include WBC 3. hemoglobin ntd. ASSESSMENT: 1. Sick sinus syndrome with near-syncope, status post permanent pacemaker implantation. 2. Dehydration. 3. Mild pancytopenia. 4. Hypernatremia. 5. Elevated TSH, possibly sick euthyroid syndrome. 6. Hydrocephalus. 7. Diabetes mellitus, type 2. 8. Hypertension. 9. Hyperlipidemia. RECOMMENDATIONS AND DISCUSSION: In this 51-year-old gentleman who presented with multiple complex medical issues, we will monitor the patient closely. Cardiology has inserted a permanent pacemaker. I would recommend IV fluids. Repeat labs in the morning. Otherwise, we will resume the home medications and will increase the dose of levothyroxine. Otherwise, continue to monitor. The prognosis is guarded because of multiple complex medical issues. Further recommendations to follow. See orders for further details. A copy of this dictation is being forwarded to Dr. Medina, who is the primary physician. Will complete the lab workup and order some follow-up labs in the morning also. MMCLAUDETTEL / IJN: [id number] / MTDD
[2021-11-04 20:27] LABS: Glucose,Whole Blood 99 mg/dL (75-99)
[2021-11-04] MEDS: MELATONIN 3 MG TABLET PO SCH (20:27)
[2021-11-04 23:14] LABS: African American GFR (CKD) >90 (>60 ml/min/1.73 sqM); Albumin 2.8 g/dL (3.5-5.0); Anion Gap 0 mmol/L; Blood Urea Nitrogen 14 mg/dL (9-20); Calcium 8.4 mg/dL (8.4-10.2); Carbon Dioxide 30 mmol/L (22-30); Chloride 125 mmol/L (98-107); Glucose 100 mg/dL (74-99); Non-African American GFR(CKD) >90 (>60 ml/min/1.73 sqM); Phosphorus 3.9 mg/dL (2.5-4.5); Potassium 3.4 mmol/L (3.5-5.1); Sodium 155 mmol/L (137-145)
[2021-11-04] MEDS: NOREPINEPHRINE 4 MG in SODIUM CHLORIDE 0.9% 250 ML IV SCH (23:19)
[2021-11-04 23:21] LABS: Anisocytosis Slight; Basophils % (A) 0 %; Eosinophils # (A) 0.1 k/uL (0-0.7); Eosinophils % (A) 2 %; HCT 28.5 % (39.0-53.0); HGB 9.2 gm/dL (13.0-17.5); Hypochromasia Moderate; Lymphocytes # (A) 0.6 k/uL (1.0-4.8); Lymphocytes % (A) 21 %; MCH 29.8 pg (25.0-35.0); MCHC 32.2 g/dL (31.0-37.0); MCV 92.4 fL (80.0-100.0); Macrocytosis Slight; Mean Platelet Volume 10.5; Monocytes # (A) 0.2 k/uL (0-1.0); Monocytes % (A) 7 %; Neutrophils # (A) 1.9 k/uL (1.3-7.7); Neutrophils % (A) 68 %; Poikilocytosis Slight; RBC 3.09 m/uL (4.30-5.90); RDW 18.5 % (11.5-15.5); WBC 2.8 k/uL (3.8-10.6)
[2021-11-04] MEDS ORDERED: SODIUM CHLORIDE 0.9% 500 ML 500 ML IV ONE (23:25)
[2021-11-05 00:11] LABS: ALT 37 U/L (4-49); AST 54 U/L (17-59); African American GFR (CKD) >90 (>60 ml/min/1.73 sqM); Albumin 2.6 g/dL (3.5-5.0); Alkaline Phosphatase 112 U/L (38-126); Anion Gap -1 mmol/L; Blood Urea Nitrogen 14 mg/dL (9-20); Calcium 8.1 mg/dL (8.4-10.2); Carbon Dioxide 33 mmol/L (22-30); Chloride 124 mmol/L (98-107); Glucose 83 mg/dL (74-99); Non-African American GFR(CKD) >90 (>60 ml/min/1.73 sqM); Potassium 3.4 mmol/L (3.5-5.1); Sodium 156 mmol/L (137-145); Total Bilirubin 0.3 mg/dL (0.2-1.3); Total Protein 5.2 g/dL (6.3-8.2)
--- NOTE | 2021-11-05 00:27 | XR ---
EXAMINATION TYPE: XR chest 1V portable DATE OF EXAM: 11/05/2021 COMPARISON: 02/11/2020 HISTORY: Chest pain TECHNIQUE: Single view FINDINGS: Heart is normal. Lungs are clear of infiltrate. No pleural effusion or pneumothorax. There is left axillary pacemaker. Bony thorax is intact. IMPRESSION: No active cardiopulmonary disease. No pneumothorax. No change.
[2021-11-05 00:34] LABS: Basophilic Stippling Present; Polychromasia Present
[2021-11-05 00:35] LABS: Platelet Count 78 k/uL (150-450)
[2021-11-05] MEDS ORDERED: Potassium Replacement Protocol 1 EACH MISC MISCELLANE PRN ×2 (00:45→01:50)
[2021-11-05] MEDS ORDERED: POTASSIUM BICARBONATE/CIT AC 20 MEQ TABLET.EFF NG-TUBE SCH (01:00)
[2021-11-05] MEDS: HEPARIN SODIUM,PORCINE/PF 5,000 UNIT/0.5 ML SYRINGE SQ SCH ×3 (01:58→16:19)
[2021-11-05] MEDS: POTASSIUM BICARBONATE/CIT AC 20 MEQ TABLET.EFF NG-TUBE SCH ×2 (01:58→03:39)
[2021-11-05] MEDS: MORPHINE SULFATE 4 MG/ML SYRINGE IVP PRN (02:10)
[2021-11-05 06:08] LABS: Glucose,Whole Blood 91 mg/dL (75-99)
[2021-11-05] MEDS: LEVOTHYROXINE 75 MCG TAB PO SCH (06:17)
[2021-11-05] MEDS: SODIUM CHLORIDE 0.9% 1,000 ML IV SCH ×4 (06:17→09:20)
[2021-11-05] MEDS: INSULIN ASPART (NovoLOG) 100 UNIT/ML VIAL SQ SCH ×4 (07:08→20:51)
--- NOTE | 2021-11-05 07:44 | CA ---
Transthoracic Echo Report Name: Nehemias Cobb Age: 51 Gender: M : 1970 Exam Date: 11/04/2021 23:36 Exam Location: [facility] Ht (in): 64 Wt (lb): 228 Ordering Physician: Grey Downey DO ([email or web address]) Attending/Referring Phys: [employer] Sales Engineer Елена Nj RDCS Procedure CPT: Indications: rule out tampenode Cardiac Hx: Technical Quality: Good Contrast 1: Total Dose (mL): Contrast 2: Total Dose (mL): MEASUREMENTS (Male / Female) Normal Values FINDINGS Left Ventricle Left ventricular ejection fraction is estimated at 55-60 %. Right Ventricle Right Atrium Left Atrium Mitral Valve Aortic Valve Tricuspid Valve Pulmonic Valve Pericardium No pericardial effusion. No tamponade Aorta CONCLUSIONS Normal left ventricular systolic function No pericardial effusion Previewed by: Dr. Bunny Paiz MD (Electronically Signed) Final Date: 05 Nov 2021 07:43
[2021-11-05 07:56] LABS: Anisocytosis Slight; Basophils % (A) 1 %; Eosinophils # (A) 0.1 k/uL (0-0.7); Eosinophils % (A) 2 %; HCT 33.4 % (39.0-53.0); HGB 10.2 gm/dL (13.0-17.5); Hypochromasia Marked; Lymphocytes # (A) 0.8 k/uL (1.0-4.8); Lymphocytes % (A) 17 %; MCH 29.2 pg (25.0-35.0); MCHC 30.7 g/dL (31.0-37.0); MCV 94.9 fL (80.0-100.0); Macrocytosis Slight; Mean Platelet Volume 9.9; Monocytes # (A) 0.4 k/uL (0-1.0); Monocytes % (A) 7 %; Neutrophils # (A) 3.7 k/uL (1.3-7.7); Neutrophils % (A) 73 %; Poikilocytosis Slight; RBC 3.51 m/uL (4.30-5.90)
[2021-11-05 08:17] LABS: Platelet Count 93 k/uL (150-450)
[2021-11-05 08:30] LABS: African American GFR (CKD) >90 (>60 ml/min/1.73 sqM); Anion Gap 5 mmol/L; Blood Urea Nitrogen 14 mg/dL (9-20); Calcium 8.5 mg/dL (8.4-10.2); Carbon Dioxide 31 mmol/L (22-30); Chloride 125 mmol/L (98-107); Glucose 81 mg/dL (74-99); Non-African American GFR(CKD) >90 (>60 ml/min/1.73 sqM)
[2021-11-05 08:38] LABS: Sodium 161 mmol/L (137-145)
[2021-11-05] MEDS: LOSARTAN 50 MG TAB PO SCH (09:15)
[2021-11-05] MEDS: ATORVASTATIN 20 MG TAB PO SCH (09:15)
[2021-11-05] MEDS: hydroCHLOROthiazide 12.5 MG CAP PO SCH (09:15)
[2021-11-05] MEDS: SERTRALINE 100 MG TAB PO SCH (09:15)
[2021-11-05] MEDS: DEXTROSE 5% IN WATER 1,000 ML IV SCH ×2 (10:34→23:02)
--- NOTE | 2021-11-05 10:53 | P.PN ---
Subjective Progress Note Date: 11/05/21 This is a 51-year-old gentleman was admitted to the hospital with dizziness and sinus pauses of more than 10 seconds and up to 20 seconds. Patient had a temporary pacemaker followed by permanent pacemaker. Patient became hypotensive. Patient had a repeat echocardiogram last night which did not reveal any evidence of pericardial effusion. Patient was treated with Levophed and IV fluids. His blood pressure is running about 9200 systolic. Today, denies any chest pain and doesn't appear to be in acute distress. Chest x-ray showed stable lead position. Threshold her stable but R waves of small in bipolar mode, measuring only 2.5. There were up to 6 at the time of implan tation the unipolar mode, except for. We'll continue monitor. Most probably doesn't need a ventricular pacing . Most probably can be managed with atrial pacing and sensing. Patient also developed some hypernatremia. The fluids are being changed to D5W this will be addressed by primary care. From cardiac standpoint. Patient to be to the telemetry unit and increase activity as tolerated Objective - Vital Signs Vital signs: Vital Signs Temp 98.0 F 11/05/21 08:30 Pulse 68 11/05/21 10:30 Resp 10 L 11/05/21 10:30 BP 98/53 11/05/21 10:30 Pulse Ox 96 11/05/21 10:30 FiO2 Intake & Output 11/04/21 11/05/21 11/05/21 18:59 06:59 18:59 Intake Total 250 2573.982 633.252 Output Total 3250 1825 950 Balance -3000 748.982 -316.748 Weight 103.419 kg 108 kg Intake: IV 50 2000 150 Sodium Chloride 0.9% 1, 2000 150 000 ml @ 50 mls/hr IV . Q20H XAVIER Rx#:[id number] Intake, IV Titration 200 153.982 243.252 Amount Dextrose 5% in Water 1, 75 000 ml @ 75 mls/hr IV . [id number] XAVIER Rx#:[id number] Norepinephrine 4 mg In 53.982 168.252 Sodium Chloride 0.9% 250 ml @ 0.05 MCG/KG/MIN 19. 701 mls/hr IV .[id number] XAVIER Rx#:[id number] Sodium Chloride 0.9% 1, 200 50 000 ml @ 50 mls/hr IV . Q20H [facility] Rx#:[id number] ceFAZolin 1,000 mg In 50 Sodium Chloride 0.9% 50 ml @ 100 mls/hr IVPB Q8H [facility] Rx#:[id number] Oral 420 240 Output: Urine 3250 1825 950 Other: Voiding Method Indwelling Catheter Indwelling Catheter Indwelling Catheter - Exam GENERAL EXAM: Patient is alert and oriented and doesn't appear to be in any acute distress HEENT: Normocephalic. Normal reaction of pupils, equal size, normal range of extraocular motion. No erythema or exudates in the throat. NECK: No masses, no nuchal rigidity. CHEST: No chest wall deformity. LUNGS: Diminished air exchange. HEART: S1 and S2 normal with no audible mumurs or gallops. Regular rhythm, femorals equal on both sides.. ABDOMEN: No hepatosplenomegaly, normal bowel sounds, no guarding or rigidity. SKIN: No rashes CENTRAL NERVOUS SYSTEM: No focal deficits. EXTREMITIES: No cyanosis, clubbing or edema. - Labs CBC & Chem 7: 11/05/21 07:12 11/05/21 07:12 Labs: Abnormal Lab Results - Last 24 Hours (Table) 11/04/21 11/04/21 11/04/21 Range/Units 22:36 22:36 23:33 WBC 2.8 L (3.8-10.6) k/uL RBC 3.09 L (4.30-5.90) m/uL Hgb 9.2 L (13.0-17.5) gm/dL Hct 28.5 L (39.0-53.0) % MCHC (31.0-37.0) g/dL RDW 18.5 H (11.5-15.5) % Plt Count 78 L (150-450) k/uL Lymphocytes # 0.6 L (1.0-4.8) k/uL Sodium 155 H 156 H (137-145) mmol/L Potassium 3.4 L 3.4 L (3.5-5.1) mmol/L Chloride 125 H 124 H (98-107) mmol/L Carbon Dioxide 33 H (22-30) mmol/L Glucose 100 H (74-99) mg/dL Calcium 8.1 L (8.4-10.2) mg/dL Total Protein 5.2 L (6.3-8.2) g/dL Albumin 2.8 L 2.6 L (3.5-5.0) g/dL 11/05/21 11/05/21 Range/Units 07:12 07:12 WBC (3.8-10.6) k/uL RBC 3.51 L (4.30-5.90) m/uL Hgb 10.2 L (13.0-17.5) gm/dL Hct 33.4 L (39.0-53.0) % MCHC 30.7 L (31.0-37.0) g/dL RDW 18.0 H (11.5-15.5) % Plt Count 93 L (150-450) k/uL Lymphocytes # (1.0-4.8) k/uL Sodium 161 H* (137-145) mmol/L Potassium (3.5-5.1) mmol/L Chloride 125 H (98-107) mmol/L Carbon Dioxide 31 H (22-30) mmol/L Glucose (74-99) mg/dL Calcium (8.4-10.2) mg/dL Total Protein (6.3-8.2) g/dL Albumin (3.5-5.0) g/dL Assessment and Plan (1) Sick sinus syndrome Current Visit: Yes Status: Acute Code(s): I49.5 - SICK SINUS SYNDROME SNOMED Code(s): 29321866 (2) Presence of permanent cardiac pacemaker Current Visit: Yes Status: Acute Code(s): Z95.0 - PRESENCE OF CARDIAC PACEMAKER SNOMED Code(s): 867913781 (3) Hypernatremia Current Visit: Yes Status: Acute Code(s): E87.0 - HYPEROSMOLALITY AND HYPERNATREMIA SNOMED Code(s): 560406430 (4) History of hydrocephalus Current Visit: Yes Status: Acute Code(s): Z86.69 - PERSONAL HISTORY OF DIS OF THE NERVOUS SYS AND SENSE ORGANS SNOMED Code(s): 637102198 Plan: Cardiac was stable. Patient could be moved to telemetry unit. Rest of the issues to be addressed by primary care
[2021-11-05] MEDS: NOREPINEPHRINE 4 MG in SODIUM CHLORIDE 0.9% 250 ML IV SCH ×2 (11:49→17:17)
[2021-11-05 13:23] LABS: Glucose,Whole Blood 96 mg/dL (75-99)
[2021-11-05 16:36] LABS: African American GFR (CKD) >90 (>60 ml/min/1.73 sqM); Anion Gap 4 mmol/L; Blood Urea Nitrogen 9 mg/dL (9-20); Carbon Dioxide 24 mmol/L (22-30); Chloride 93 mmol/L (98-107); Non-African American GFR(CKD) >90 (>60 ml/min/1.73 sqM); Sodium 121 mmol/L (137-145)
[2021-11-05 17:03] LABS: Glucose 1072 mg/dL (74-99)
[2021-11-05 17:07] LABS: Glucose,Whole Blood 100 mg/dL (75-99)
[2021-11-05 17:43] LABS: African American GFR (CKD) >90 (>60 ml/min/1.73 sqM); Anion Gap 5 mmol/L; Blood Urea Nitrogen 14 mg/dL (9-20); Calcium 8.4 mg/dL (8.4-10.2); Carbon Dioxide 33 mmol/L (22-30); Chloride 122 mmol/L (98-107); Glucose 101 mg/dL (74-99); Non-African American GFR(CKD) >90 (>60 ml/min/1.73 sqM); Potassium 3.7 mmol/L (3.5-5.1); Sodium 160 mmol/L (137-145)
[2021-11-05 20:36] LABS: Potassium 2.7 mmol/L (3.5-5.1)
[2021-11-05 20:52] LABS: Glucose,Whole Blood 95 mg/dL (75-99)
[2021-11-05] MEDS: MELATONIN 3 MG TABLET PO SCH (20:54)
[2021-11-06] MEDS: HEPARIN SODIUM,PORCINE/PF 5,000 UNIT/0.5 ML SYRINGE SQ SCH ×3 (00:09→15:29)
[2021-11-06 06:18] LABS: Anisocytosis Slight; Basophils % (A) 0 %; Eosinophils # (A) 0.1 k/uL (0-0.7); Eosinophils % (A) 3 %; HCT 31.9 % (39.0-53.0); HGB 9.8 gm/dL (13.0-17.5); Hypochromasia Marked; Lymphocytes # (A) 0.9 k/uL (1.0-4.8); Lymphocytes % (A) 23 %; MCH 29.2 pg (25.0-35.0); MCHC 30.8 g/dL (31.0-37.0); MCV 94.6 fL (80.0-100.0); Macrocytosis Slight; Mean Platelet Volume 9.9; Monocytes # (A) 0.3 k/uL (0-1.0); Monocytes % (A) 7 %; Neutrophils # (A) 2.6 k/uL (1.3-7.7); Neutrophils % (A) 65 %; Poikilocytosis Slight; RBC 3.37 m/uL (4.30-5.90); RDW 17.9 % (11.5-15.5)
[2021-11-06 06:30] LABS: Platelet Count 74 k/uL (150-450)
[2021-11-06] MEDS: LEVOTHYROXINE 75 MCG TAB PO SCH (06:30)
[2021-11-06 06:36] LABS: African American GFR (CKD) >90 (>60 ml/min/1.73 sqM); Anion Gap 2 mmol/L; Blood Urea Nitrogen 16 mg/dL (9-20); Calcium 8.6 mg/dL (8.4-10.2); Carbon Dioxide 33 mmol/L (22-30); Chloride 125 mmol/L (98-107); Glucose 79 mg/dL (74-99); Non-African American GFR(CKD) >90 (>60 ml/min/1.73 sqM); Potassium 3.6 mmol/L (3.5-5.1); Sodium 160 mmol/L (137-145)
[2021-11-06] MEDS: INSULIN ASPART (NovoLOG) 100 UNIT/ML VIAL SQ SCH ×4 (06:37→23:58)
[2021-11-06 06:38] LABS: Glucose,Whole Blood 83 mg/dL (75-99)
--- NOTE | 2021-11-06 08:08 | P.PN ---
Subjective HISTORY OF PRESENTING ILLNESS This is a 51-year-old gentleman was admitted to the hospital with dizziness and sinus pauses of more than 10 seconds and up to 20 seconds. Patient had a temporary pacemaker followed by permanent pacemaker. Patient became hypotensive. Patient had a repeat echocardiogram last night which did not reveal any evidence of pericardial effusion. Patient was treated with Levophed and IV fluids. His blood pressure is running about 9200 systolic. Today, denies any chest pain and doesn't appear to be in acute distress. Chest x-ray showed stable lead position. Threshold her stable but R waves of small in bipolar mode, measuring only 2.5. There were up to 6 at the time of implantation the unipolar mode, except for. We'll continue monitor. Most probably doesn't need a ventricular pacing . Most probably can be managed with atrial pacing and sensing. Patient also developed some hypernatremia. The fluids are being changed to D5W this will be addressed by primary care. From cardiac standpoint. Patient to be to the telemetry unit and increase activity as tolerated 11/06 Patient seen and examined. Patient has been on low-dose of Levophed which was weaned off this morning currently blood pressures in the 90s over 70s. He denies any chest pain or pressure. Remains atrial paced without significant issues on telemetry. He has remained weak needing assistance to stand up and states normally ambulatory on his own. PHYSICAL EXAMINATION Vital signs reviewed. CONSTITUTIONAL: No apparent distress. HEENT: Head is normocephalic. Pupils are equal, round. Sclerae anicteric. Mucous membranes of the mouth are moist. No JVD. No carotid bruit. CHEST EXAMINATION: Lungs are clear to auscultation. No chest wall tenderness is noted on palpation or with deep breathing. HEART EXAMINATION: Regular rate and rhythm. S1, S2 heard. No murmurs, gallops or rub. ABDOMEN: Soft, nontender. Positive bowel sounds. EXTREMITIES: 2+ peripheral pulses, +2+ lower extremity edema and no calf tenderness. NEUROLOGIC EXAMINATION: Patient is awake, alert and oriented x3. +nystagmus ASSESSMENT 1. Sick sinus syndrome status post dual-chamber. Pacemaker 2. Hypernatremia 3. History of hydrocephalus 4. Hypotension postoperatively, no significant pericardial effusion noted on repeat echo 5. Chronic lower extremity edema likely component of venous insufficiency PLAN Continue supportive care. The Levophed has been weaned off. He did seem to improve with IV fluids and may be some component of decreased intervascular volume. Continue physical therapy. Objective - Vital Signs Vital signs: Vital Signs Temp 96.2 F L 11/06/21 04:00 Pulse 60 11/06/21 07:00 Resp 18 11/06/21 07:00 BP 97/59 11/06/21 07:00 Pulse Ox 97 11/06/21 07:00 FiO2 Intake & Output 11/05/21 11/06/21 11/06/21 18:59 06:59 18:59 Intake Total 3748.022 1848.975 600 Output Total 2275 3660 200 Balance -787.589 -2368.025 400 Intake: IV 900 1200 100 Dextrose 5% in Water 1, 700 1200 100 000 ml @ 100 mls/hr IV . Q10H [facility] Rx#:[id number] Sodium Chloride 0.9% 1, 150 000 ml @ 50 mls/hr IV . Q20H [facility] Rx#:[id number] Intake, IV Titration 347.411 91.975 Amount Dextrose 5% in Water 1, 150 000 ml @ 100 mls/hr IV . Q10H [facility] Rx#:[id number] Norepinephrine 4 mg In 197.411 91.975 Sodium Chloride 0.9% 250 ml @ 0.05 MCG/KG/MIN 19. 701 mls/hr IV .[id number] [facility] Rx#:[id number] Oral 240 500 Output: Urine 2275 3660 200 Other: Voiding Method Indwelling Catheter Indwelling Catheter - Labs CBC & Chem 7: 11/06/21 05:46 11/06/21 05:46 Labs: Abnormal Lab Results - Last 24 Hours (Table) 11/05/21 11/05/21 11/05/21 Range/Units 07:12 07:12 16:02 RBC 3.51 L (4.30-5.90) m/uL Hgb 10.2 L (13.0-17.5) gm/dL Hct 33.4 L (39.0-53.0) % MCHC 30.7 L (31.0-37.0) g/dL RDW 18.0 H (11.5-15.5) % Plt Count 93 L (150-450) k/uL Lymphocytes # 0.8 L (1.0-4.8) k/uL Sodium 161 H* 121 L (137-145) mmol/L Potassium 2.7 L* (3.5-5.1) mmol/L Chloride 125 H 93 L (98-107) mmol/L Carbon Dioxide 31 H (22-30) mmol/L Creatinine 0.60 L (0.66-1.25) mg/dL Glucose 1072 H* (74-99) mg/dL POC Glucose (mg/dL) (75-99) mg/dL Calcium 6.0 L* (8.4-10.2) mg/dL 11/05/21 11/05/21 11/06/21 Range/Units 17:05 17:13 05:46 RBC 3.37 L (4.30-5.90) m/uL Hgb 9.8 L (13.0-17.5) gm/dL Hct 31.9 L (39.0-53.0) % MCHC 30.8 L (31.0-37.0) g/dL RDW 17.9 H (11.5-15.5) % Plt Count 74 L (150-450) k/uL Lymphocytes # 0.9 L (1.0-4.8) k/uL Sodium 160 H (137-145) mmol/L Potassium (3.5-5.1) mmol/L Chloride 122 H (98-107) mmol/L Carbon Dioxide 33 H (22-30) mmol/L Creatinine (0.66-1.25) mg/dL Glucose 101 H (74-99) mg/dL POC Glucose (mg/dL) 100 H (75-99) mg/dL Calcium (8.4-10.2) mg/dL 11/06/21 Range/Units 05:46 RBC (4.30-5.90) m/uL Hgb (13.0-17.5) gm/dL Hct (39.0-53.0) % MCHC (31.0-37.0) g/dL RDW (11.5-15.5) % Plt Count (150-450) k/uL Lymphocytes # (1.0-4.8) k/uL Sodium 160 H (137-145) mmol/L Potassium (3.5-5.1) mmol/L Chloride 125 H (98-107) mmol/L Carbon Dioxide 33 H (22-30) mmol/L Creatinine (0.66-1.25) mg/dL Glucose (74-99) mg/dL POC Glucose (mg/dL) (75-99) mg/dL Calcium (8.4-10.2) mg/dL
[2021-11-06] MEDS: hydroCHLOROthiazide 12.5 MG CAP PO SCH (08:50)
[2021-11-06] MEDS: SERTRALINE 100 MG TAB PO SCH (08:50)
[2021-11-06] MEDS: ATORVASTATIN 20 MG TAB PO SCH (08:50)
[2021-11-06] MEDS: LOSARTAN 50 MG TAB PO SCH (08:51)
[2021-11-06] MEDS: DEXTROSE 5% IN WATER 1,000 ML IV SCH (09:37)
[2021-11-06 11:31] LABS: Glucose,Whole Blood 97 mg/dL (75-99)
[2021-11-06] MEDS ORDERED: DEXTROSE 5%-0.9% NACL 1,000 ML IV SCH (15:45)
[2021-11-06 16:43] LABS: Glucose,Whole Blood 88 mg/dL (75-99)
[2021-11-06] MEDS ORDERED: POTASSIUM CHLORIDE ER 20 MEQ TAB.ER PO STA (16:58)
[2021-11-06] MEDS: MELATONIN 3 MG TABLET PO SCH (20:40)
[2021-11-06 20:53] LABS: Glucose,Whole Blood 98 mg/dL (75-99)
--- NOTE | 2021-11-06 21:39 | P.PN ---
Subjective Progress Note Date: 11/05/21 Patient is a 51-year-old male with a known history of diabetes type 2, hypertension, hyperlipidemia was admitted to hospital due to generalized weakness and fatigue. Patient was found to have significant bradycardia and sick sinus syndrome. Pauses were lasting up to 22 seconds and cardiology has seen the patient and patient and permanent pacemaker was implanted. 11/05/2021 Patient is in the MICU. Patient is status post permanent pacer placement. Currently patient is lying in the bed lethargic and slightly confused. Patient is hypotensive. Started on Levophed and IV hydration. 2D echocardiogram showed no evidence of pleural effusion. Laboratory data showed sodium 161 potassium 4.0 chloride 125 bicarb is 31 BUN 14 and creatinine 0.79 Patient was started on D5 water. WBC 5.0 hemoglobin 10.1 platelets 93. Cardiology is on board. Current medications reviewed. Objective - Vital Signs Vital signs: Vital Signs Temp 98.0 F 11/05/21 08:30 Pulse 69 11/05/21 11:00 Resp 9 L 11/05/21 11:00 BP 97/58 11/05/21 11:00 Pulse Ox 96 11/05/21 11:00 FiO2 Intake & Output 11/04/21 11/05/21 11/05/21 18:59 06:59 18:59 Intake Total 250 2573.982 708.252 Output Total 3250 1825 1100 Balance -3000 748.982 -391.748 Weight 103.419 kg 108 kg Intake: IV 50 2000 150 Sodium Chloride 0.9% 1, 2000 150 000 ml @ 50 mls/hr IV . Q20H [facility] Rx#:[id number] Intake, IV Titration 200 153.982 318.252 Amount Dextrose 5% in Water 1, 150 000 ml @ 75 mls/hr IV . [id number] [facility] Rx#:[id number] Norepinephrine 4 mg In 53.982 168.252 Sodium Chloride 0.9% 250 ml @ 0.05 MCG/KG/MIN 19. 701 mls/hr IV .[id number] [facility] Rx#:[id number] Sodium Chloride 0.9% 1, 200 50 000 ml @ 50 mls/hr IV . Q20H [facility] Rx#:[id number] ceFAZolin 1,000 mg In 50 Sodium Chloride 0.9% 50 ml @ 100 mls/hr IVPB Q8H [facility] Rx#:[id number] Oral 420 240 Output: Urine 3250 1825 1100 Other: Voiding Method Indwelling Catheter Indwelling Catheter Indwelling Catheter - Exam PHYSICAL EXAMINATION: Patient is lying in the bed comfortably, no acute distress, awake alert but lethargic and drowsy... HEENT: Normocephalic. Neck is supple. Pupils reactive. Nostrils clear. Oral cavity is moist. Neck reveals no JVD, carotid bruits, or thyromegaly. CHEST EXAMINATION: Trachea is central. Symmetrical expansion. Lung hall clear to auscultation and percussion. CARDIAC: Normal S1, S2 with no gallops. No murmurs ABDOMEN: Soft. Bowel sounds normal. No organomegaly. No abdominal bruits. Extremities: reveal no edema. No clubbing or cyanosis Neurologically awake, alert, oriented x3 with well-coordinated movements. No focal deficits noted Skin: No rash or skin lesions. Psychiatric: Cooperative. Nonsuicidal Musculoskeletal: No joint swelling or deformity. Normal range of motion. - Labs CBC & Chem 7: 11/06/21 05:46 11/06/21 05:46 Labs: Abnormal Lab Results - Last 24 Hours (Table) 11/04/21 11/04/21 11/04/21 Range/Units 22:36 22:36 23:33 WBC 2.8 L (3.8-10.6) k/uL RBC 3.09 L (4.30-5.90) m/uL Hgb 9.2 L (13.0-17.5) gm/dL Hct 28.5 L (39.0-53.0) % MCHC (31.0-37.0) g/dL RDW 18.5 H (11.5-15.5) % Plt Count 78 L (150-450) k/uL Lymphocytes # 0.6 L (1.0-4.8) k/uL Sodium 155 H 156 H (137-145) mmol/L Potassium 3.4 L 3.4 L (3.5-5.1) mmol/L Chloride 125 H 124 H (98-107) mmol/L Carbon Dioxide 33 H (22-30) mmol/L Glucose 100 H (74-99) mg/dL Calcium 8.1 L (8.4-10.2) mg/dL Total Protein 5.2 L (6.3-8.2) g/dL Albumin 2.8 L 2.6 L (3.5-5.0) g/dL 11/05/21 11/05/21 Range/Units 07:12 07:12 WBC (3.8-10.6) k/uL RBC 3.51 L (4.30-5.90) m/uL Hgb 10.2 L (13.0-17.5) gm/dL Hct 33.4 L (39.0-53.0) % MCHC 30.7 L (31.0-37.0) g/dL RDW 18.0 H (11.5-15.5) % Plt Count 93 L (150-450) k/uL Lymphocytes # (1.0-4.8) k/uL Sodium 161 H* (137-145) mmol/L Potassium (3.5-5.1) mmol/L Chloride 125 H (98-107) mmol/L Carbon Dioxide 31 H (22-30) mmol/L Glucose (74-99) mg/dL Calcium (8.4-10.2) mg/dL Total Protein (6.3-8.2) g/dL Albumin (3.5-5.0) g/dL Assessment and Plan Assessment: Sick sinus syndrome with near syncopal status post permanent pacemaker placement Hypernatremia due to dehydration volume depletion Elevated TSH possible sick euthyroid syndrome. Hydrocephalus Diabetes type 2 with hypoglycemic episodes Hypertension Hyperlipidemia DVT prophylaxis plan: Patient will be continued on telemetry monitoring. Status post permanent pacemaker placement. Continue with IV hydration with D5 water. Current with home medications and including levothyroxine. Follow-up closely. Cardiology is on board. Time with Patient: Greater than 30
--- NOTE | 2021-11-06 21:42 | P.PN ---
Subjective Progress Note Date: 11/06/21 Patient is a 51-year-old male with a known history of diabetes type 2, hypertension, hyperlipidemia was admitted to hospital due to generalized weakness and fatigue. Patient was found to have significant bradycardia and sick sinus syndrome. Pauses were lasting up to 22 seconds and cardiology has seen the patient and patient and permanent pacemaker was implanted. 11/05/2021 Patient is in the MICU. Patient is status post permanent pacer placement. Currently patient is lying in the bed lethargic and slightly confused. Patient is hypotensive. Started on Levophed and IV hydration. 2D echocardiogram showed no evidence of pleural effusion. Laboratory data showed sodium 161 potassium 4.0 chloride 125 bicarb is 31 BUN 14 and creatinine 0.79 Patient was started on D5 water. WBC 5.0 hemoglobin 10.1 platelets 93. Cardiology is on board. 11/06/2021. Patient is currently resting in bed. Awake alert and oriented. Able to sit in the chair this morning. Otherwise patient is still hypotensive with SBP 90s. Patient was started on low-dose Levophed drip. Continued on IV hydration D5 water due to hypernatremia. Otherwise patient is tolerating oral diet slowly. No complaints of chest pain. No fever no chills. No cough or production. No headache or dizziness or lightheadedness. Laboratory data showed WBC 4.0 hemoglobin 9.8 and platelets 74 Sodium 160 potassium 3.6 chloride 125 bicarb is 33 BUN 16 and creatinine 0.73 and calcium 8.6. Current medications reviewed. Objective - Vital Signs Vital signs: Vital Signs Temp 97.5 F L 11/06/21 16:00 Pulse 61 11/06/21 20:00 Resp 18 11/06/21 20:00 BP 93/58 11/06/21 20:00 Pulse Ox 98 11/06/21 20:00 FiO2 Intake & Output 11/06/21 11/06/21 11/07/21 06:59 18:59 06:59 Intake Total 6253.014 6208.288 540 Output Total 3660 2095 600 Balance -2368.025 1134.288 -60 Weight 107 kg Intake: IV 1200 1200 300 Dextrose 5% in Water 1, 1200 900 000 ml @ 100 mls/hr IV . Q10H [facility] Rx#:[id number] Dextrose 5%-0.9% NaCl 1, 300 300 000 ml @ 100 mls/hr IV . Q10H [facility] Rx#:[id number] Intake, IV Titration .975 29.288 0 Amount Norepinephrine 4 mg In .97 29.288 0 Sodium Chloride 0.9% 250 ml @ 0.05 MCG/KG/MIN 19. 701 mls/hr IV .[id number] [facility] Rx#:[id number] Oral 2000 240 Output: Urine 3660 2095 600 Other: Voiding Method Indwelling Catheter Indwelling Catheter - Exam PHYSICAL EXAMINATION: Patient is lying in the bed comfortably, no acute distress, awake alert but lethargic. able to answer simple questions HEENT: Normocephalic. Neck is supple. Pupils reactive. Nostrils clear. Oral cavity is moist. Neck reveals no JVD, carotid bruits, or thyromegaly. CHEST EXAMINATION: Trachea is central. Symmetrical expansion. Lung hall clear to auscultation and percussion. CARDIAC: Normal S1, S2 with no gallops. No murmurs ABDOMEN: Soft. Bowel sounds normal. No organomegaly. No abdominal bruits. Extremities: trace edema. No clubbing or cyanosis Neurologically awake, alert, oriented x3 with well-coordinated movements. No focal deficits noted Skin: No rash or skin lesions. Psychiatric: Cooperative. Nonsuicidal Musculoskeletal: No joint swelling or deformity. Normal range of motion. - Labs CBC & Chem 7: 11/06/21 05:46 11/06/21 05:46 Labs: Abnormal Lab Results - Last 24 Hours (Table) 11/06/21 11/06/21 Range/Units 05:46 05:46 RBC 3.37 L (4.30-5.90) m/uL Hgb 9.8 L (13.0-17.5) gm/dL Hct 31.9 L (39.0-53.0) % MCHC 30.8 L (31.0-37.0) g/dL RDW 17.9 H (11.5-15.5) % Plt Count 74 L (150-450) k/uL Lymphocytes # 0.9 L (1.0-4.8) k/uL Sodium 160 H (137-145) mmol/L Chloride 125 H (98-107) mmol/L Carbon Dioxide 33 H (22-30) mmol/L Assessment and Plan Assessment: Sick sinus syndrome with near syncopal status post permanent pacemaker placement Hypotension requiring pressor support. 2D echocardiogram showed no pericardial effusion. Hypernatremia due to dehydration volume depletion Elevated TSH possible sick euthyroid syndrome. Hydrocephalus Diabetes type 2 with hypoglycemic episodes Hypertension Hyperlipidemia DVT prophylaxis plan: Patient will be continued on telemetry monitoring. Status post permanent pacemaker placement. Continue with IV hydration with D5 water. Current with home medications and including levothyroxine. Follow-up closely. Cardiology is on board. Time with Patient: Greater than 30
[2021-11-07] MEDS: HEPARIN SODIUM,PORCINE/PF 5,000 UNIT/0.5 ML SYRINGE SQ SCH ×3 (00:49→17:23)
[2021-11-07] MEDS: DEXTROSE 5% IN WATER 1,000 ML IV SCH ×3 (04:18→21:32)
[2021-11-07 06:05] LABS: African American GFR (CKD) >90 (>60 ml/min/1.73 sqM); Anion Gap 2 mmol/L; Blood Urea Nitrogen 15 mg/dL (9-20); Calcium 8.4 mg/dL (8.4-10.2); Carbon Dioxide 32 mmol/L (22-30); Chloride 117 mmol/L (98-107); Glucose 79 mg/dL (74-99); Non-African American GFR(CKD) >90 (>60 ml/min/1.73 sqM); Potassium 3.7 mmol/L (3.5-5.1); Sodium 151 mmol/L (137-145)
[2021-11-07 06:50] LABS: Anisocytosis Slight; Basophils % (A) 1 %; Eosinophils # (A) 0.1 k/uL (0-0.7); Eosinophils % (A) 2 %; HCT 29.4 % (39.0-53.0); HGB 9.3 gm/dL (13.0-17.5); Hypochromasia Marked; Lymphocytes # (A) 0.8 k/uL (1.0-4.8); Lymphocytes % (A) 23 %; MCH 29.6 pg (25.0-35.0); MCHC 31.7 g/dL (31.0-37.0); MCV 93.7 fL (80.0-100.0); Macrocytosis Slight; Mean Platelet Volume 11.2; Monocytes # (A) 0.2 k/uL (0-1.0); Monocytes % (A) 5 %; Neutrophils # (A) 2.3 k/uL (1.3-7.7); Neutrophils % (A) 67 %; Platelet Count 64 k/uL (150-450); Poikilocytosis Slight; RBC 3.13 m/uL (4.30-5.90); RDW 18.2 % (11.5-15.5); WBC 3.4 k/uL (3.8-10.6)
[2021-11-07] MEDS: LEVOTHYROXINE 75 MCG TAB PO SCH (06:54)
[2021-11-07] MEDS: NOREPINEPHRINE 4 MG in SODIUM CHLORIDE 0.9% 250 ML IV SCH ×3 (07:51→13:14)
[2021-11-07 07:55] LABS: Glucose,Whole Blood 93 mg/dL (75-99)
[2021-11-07] MEDS: INSULIN ASPART (NovoLOG) 100 UNIT/ML VIAL SQ SCH ×4 (08:06→21:32)
--- NOTE | 2021-11-07 08:11 | P.PN ---
Subjective HISTORY OF PRESENTING ILLNESS This is a 51-year-old gentleman was admitted to the hospital with dizziness and sinus pauses of more than 10 seconds and up to 20 seconds. Patient had a temporary pacemaker followed by permanent pacemaker. Patient became hypotensive. Patient had a repeat echocardiogram last night which did not reveal any evidence of pericardial effusion. Patient was treated with Levophed and IV fluids. His blood pressure is running about 9200 systolic. Today, denies any chest pain and doesn't appear to be in acute distress. Chest x-ray showed stable lead position. Threshold her stable but R waves of small in bipolar mode, measuring only 2.5. There were up to 6 at the time of implantation the unipolar mode, except for. We'll continue monitor. Most probably doesn't need a ventricular pacing . Most probably can be managed with atrial pacing and sensing. Patient also developed some hypernatremia. The fluids are being changed to D5W this will be addressed by primary care. From cardiac standpoint. Patient to be to the telemetry unit and increase activity as tolerated 11/06 Patient seen and examined. Patient has been on low-dose of Levophed which was weaned off this morning currently blood pressures in the 90s over 70s. He denies any chest pain or pressure. Remains atrial paced without significant issues on telemetry. He has remained weak needing assistance to stand up and states normally ambulatory on his own. 11/07 Continue examined. Patient was placed back on low dose of levophed. Patient remains hypernatremic and receiving D5W. He is having large volumes of urine output and admits to polydipsia. He has had increased sodium levels in the past as well on further review and admits that history of hypernatremia. Findings may be consistent with diabetes insipidus. PHYSICAL EXAMINATION Vital signs reviewed. CONSTITUTIONAL: No apparent distress. HEENT: Head is normocephalic. Pupils are equal, round. Sclerae anicteric. Mucous membranes of the mouth are moist. No JVD. No carotid bruit. CHEST EXAMINATION: Lungs are clear to auscultation. No chest wall tenderness is noted on palpation or with deep breathing. HEART EXAMINATION: Regular rate and rhythm. S1, S2 heard. No murmurs, gallops or rub. ABDOMEN: Soft, nontender. Positive bowel sounds. EXTREMITIES: 2+ peripheral pulses, +2+ lower extremity edema and no calf tenderness. NEUROLOGIC EXAMINATION: Patient is awake, alert and oriented x3. +nystagmus ASSESSMENT 1. Sick sinus syndrome status post dual-chamber. Pacemaker 2. Hypernatremia with polydipsia and polyuria with history of similar in the past. Rule out diabetes insipidus 3. History of hydrocephalus 4. Hypotension postoperatively, no significant pericardial effusion noted on repeat echo 5. Chronic lower extremity edema likely component of venous insufficiency PLAN Continue supportive care. Still requiring low dose of norepinephrine. Some of this may be hormonal related and we will check cortisols for possible adrenal insufficiency. Patient also having hypernatremia with history of similar with polyuria and some of this may be related to diabetes insipidus. Nephrology consult for further workup. Place patient on Midrin in hopes of discontinuing norepinephrine. Objective - Vital Signs Vital signs: Vital Signs Temp 97.4 F L 11/07/21 00:00 Pulse 67 11/07/21 07:00 Resp 9 L 11/07/21 07:00 BP 107/65 11/07/21 07:00 Pulse Ox 97 11/07/21 07:00 FiO2 Intake & Output 11/06/21 11/07/21 11/07/21 18:59 06:59 18:59 Intake Total 3229.288 1751.801 100 Output Total 2095 2300 175 Balance 1134.288 -548.199 -75 Weight 103.6 kg Intake: IV 1200 1200 100 Dextrose 5% in Water 1, 900 100 000 ml @ 100 mls/hr IV . Q10H [facility] Rx#:[id number] Dextrose 5%-0.9% NaCl 1, 300 1100 100 000 ml @ 100 mls/hr IV . Q10H [facility] Rx#:[id number] Intake, IV Titration 29.288 71.801 Amount Norepinephrine 4 mg In 29.288 21.801 Sodium Chloride 0.9% 250 ml @ 0.05 MCG/KG/MIN 19. 701 mls/hr IV .[id number] [facility] Rx#:[id number] ceFAZolin 1,000 mg In 50 Sodium Chloride 0.9% 50 ml @ 100 mls/hr IVPB Q8H [facility] Rx#:[id number] Oral 2000 480 Output: Urine 2095 2300 175 Other: Voiding Method Indwelling Catheter Indwelling Catheter - Labs CBC & Chem 7: 11/07/21 05:21 11/07/21 05:21 Labs: Abnormal Lab Results - Last 24 Hours (Table) 11/07/21 11/07/21 Range/Units 05:21 05:21 WBC 3.4 L (3.8-10.6) k/uL RBC 3.13 L (4.30-5.90) m/uL Hgb 9.3 L (13.0-17.5) gm/dL Hct 29.4 L (39.0-53.0) % RDW 18.2 H (11.5-15.5) % Plt Count 64 L (150-450) k/uL Lymphocytes # 0.8 L (1.0-4.8) k/uL Sodium 151 H (137-145) mmol/L Chloride 117 H (98-107) mmol/L Carbon Dioxide 32 H (22-30) mmol/L
[2021-11-07] MEDS: LOSARTAN 50 MG TAB PO SCH (09:27)
[2021-11-07] MEDS: SERTRALINE 100 MG TAB PO SCH (09:45)
[2021-11-07] MEDS: ATORVASTATIN 20 MG TAB PO SCH (09:45)
--- NOTE | 2021-11-07 10:06 | P.NPCON ---
History of Present Illness - Reason for Consult hypernatremia - History of Present Illness Patient is a 50-year-old male with previous history of type 2 diabetes, hypertension hyperlipidemia and hydrocephalus. Patient was admitted to the hospital with bradycardia with long pauses. He was evaluated by cardiology and has had a permanent pacemaker placed. Patient is noted to be hypernatremic with serum sodium around 151-156 and going up to 161 during his hospitalization. Patient has been maintained on D5W and sodium has decreased to 150 one today from 160 yesterday. Nursing staff reports increased urine output. Patient currently has a Zavaleta catheter and his urine output has been anywhere from 150-3 50 mL per hour. Patient has also been quite thirsty and has been drinking large amounts of water . Patient did admit to previous history of hyponatremia a few years ago. Blood pressure has recently been slightly on the lower side with systolic around 95-100 mmHg and patient was started on midodrine. Blood sugars have not been elevated Patient has not received any mannitol or urea which can be associated with polyuria. Patient was on hydrochlorothiazide at home which is currently on hold. Review of Systems As per HPI Past Medical History Past Medical History: Diabetes Mellitus, Hyperlipidemia, Hypertension Additional Past Medical History / Comment(s): hydrocephalus History of Any Multi-Drug Resistant Organisms: None Reported Past Surgical History: No Surgical Hx Reported Past Psychological History: Depression Smoking Status: Never smoker Past Alcohol Use History: None Reported Past Drug Use History: None Reported - Past Family History Mother Brother(s) Family Medical History: Hypertension Medications and Allergies Home Medications Medication Instructions Recorded Confirmed Type Febuxostat 40 mg PO DAILY 02/11/20 11/04/21 History Hydrochlorothiazide 12.5 mg PO DAILY 02/11/20 11/04/21 History [hydroCHLOROthiazide] Levothyroxine Sodium [Synthroid] 150 mcg PO DAILY 02/11/20 11/04/21 History Sertraline HCl [Zoloft] 100 mg PO DAILY 02/11/20 11/04/21 History Simvastatin 40 mg PO DAILY 02/11/20 11/04/21 History Losartan [Cozaar] 50 mg PO DAILY 11/04/21 11/04/21 History Melatonin 3 mg PO HS 11/04/21 11/04/21 History Allergies Allergy/AdvReac Type Severity Reaction Status Date / Time No Known Allergies Allergy Verified 11/04/21 08:38 Physical Exam Vitals: Vital Signs Temp Pulse Resp BP Pulse Ox 11/07/21 07:00 67 9 L 107/65 97 11/07/21 06:00 60 13 100/64 97 11/07/21 05:00 60 10 L 95/57 99 11/07/21 04:00 63 17 101/67 97 11/07/21 03:00 60 9 L 104/59 94 L 11/07/21 02:00 60 10 L 103/64 96 11/07/21 01:00 57 L 20 109/57 95 11/07/21 00:00 97.4 F L 60 9 L 115/72 98 11/06/21 23:48 60 8 L 115/72 97 11/06/21 23:00 59 L 10 L 121/65 92 L 11/06/21 22:00 60 11 L 106/63 97 11/06/21 21:00 60 10 L 100/62 99 11/06/21 20:00 61 18 93/58 98 11/06/21 19:00 60 16 93/58 92 L 11/06/21 18:00 60 13 95/56 97 11/06/21 17:00 64 12 102/65 100 11/06/21 16:00 97.5 F L 64 17 118/63 98 11/06/21 15:00 60 12 98/64 97 11/06/21 14:00 60 15 108/63 97 11/06/21 13:00 60 16 101/67 97 11/06/21 12:00 97.6 F 60 12 95/53 94 L 11/06/21 11:00 64 12 83/59 98 11/06/21 10:00 60 15 86/47 98 Intake and Output 11/06/21 11/07/21 11/07/21 22:59 06:59 14:59 Intake Total 2103.312 871.801 100 Output Total 1775 1525 175 Balance 328.312 -653.199 -75 Intake: IV 800 800 100 Dextrose 5% in Water 1, 100 100 000 ml @ 100 mls/hr IV . Q10H [facility] Rx#:[id number] Dextrose 5%-0.9% NaCl 1, 700 700 100 000 ml @ 100 mls/hr IV . Q10H [facility] Rx#:[id number] Intake, IV Titration 23.312 71.801 Amount Norepinephrine 4 mg In 23.312 21.801 Sodium Chloride 0.9% 250 ml @ 0.05 MCG/KG/MIN 19. 701 mls/hr IV .[id number] [facility] Rx#:[id number] ceFAZolin 1,000 mg In 50 Sodium Chloride 0.9% 50 ml @ 100 mls/hr IVPB Q8H [facility] Rx#:[id number] Oral 1280 Output: Urine 1775 1525 175 Other: Voiding Method Indwelling Catheter Indwelling Catheter Weight 103.6 kg Patient is awake comfortable, not in any acute distress. Alert oriented 3 Examination of the heart S1 and S2 Examination lungs bilateral breath sounds are heard Abdomen is soft nontender obese Examination lower extremities shows no evidence of edema [employer] exam grossly intact Results - Lab Results Most recent lab results Calcium 8.4 mg/dL (8.4-10.2) 11/07/21 05:21 Phosphorus 3.9 mg/dL (2.5-4.5) 11/04/21 22:36 11/07/21 05:21 11/07/21 05:21 Assessment and Plan Assessment: 1. Hypernatremia associated with polyuria and polydipsia in a patient with history of hydrocephalus. Rule out diabetes insipidus. No other reasons for polyuria identified at this time. Blood sugars are not elevated. Patient was on hydrochlorothiazide which is now discontinued. Currently maintained on D5W which I will continue. Urine osmolality and random urine sodium will be ordered. 2. Bradycardia with sick sinus syndrome status post pacemaker placement 3. Hypotension was related to hypovolemia. Currently maintained on D5W and started on midodrine 4. History of hydrocephalus details not known 5. History of hypothyroidism with TSH around 6 at the time of admission 7. History of hypertension maintained on losartan at home and hydrochlorothia zide's. Both medications currently on hold Plan: Check urine sodium Check urine osmolality Continue with D5W Patient may need challenge with desmopressin to diagnose primary polydipsia versus DI depending on his urine osmolality. Thank you for the consultation, we will continue to follow the patient with you
[2021-11-07 11:53] LABS: Glucose,Whole Blood 77 mg/dL (75-99)
[2021-11-07] MEDS: MIDODRINE 5 MG TAB PO SCH ×2 (13:16→17:23)
[2021-11-07 16:19] LABS: Glucose,Whole Blood 103 mg/dL (75-99)
[2021-11-07] MEDS: MELATONIN 3 MG TABLET PO SCH (21:07)
[2021-11-07 21:13] LABS: Glucose,Whole Blood 80 mg/dL (75-99)
[2021-11-08] MEDS: HEPARIN SODIUM,PORCINE/PF 5,000 UNIT/0.5 ML SYRINGE SQ SCH ×4 (00:42→23:19)
--- NOTE | 2021-11-08 01:14 | P.PN ---
Subjective Progress Note Date: 11/07/21 Patient is a 51-year-old male with a known history of diabetes type 2, hypertension, hyperlipidemia was admitted to hospital due to generalized weakness and fatigue. Patient was found to have significant bradycardia and sick sinus syndrome. Pauses were lasting up to 22 seconds and cardiology has seen the patient and patient and permanent pacemaker was implanted. 11/05/2021 Patient is in the MICU. Patient is status post permanent pacer placement. Currently patient is lying in the bed lethargic and slightly confused. Patient is hypotensive. Started on Levophed and IV hydration. 2D echocardiogram showed no evidence of pleural effusion. Laboratory data showed sodium 161 potassium 4.0 chloride 125 bicarb is 31 BUN 14 and creatinine 0.79 Patient was started on D5 water. WBC 5.0 hemoglobin 10.1 platelets 93. Cardiology is on board. 11/07/2021 Patient is able to sit in the chair. Still confused and lethargic. Patient was started on midodrine and blood pressure is in upper 90s. Levophed drip has been discontinued. Sodium level improved to 151 and patient is being continued on D5 water at 75 cc/h. Encourage oral intake. Patient has been afebrile. Cardiology is on board. No complaints of chest pain or shortness of breath. Laboratory pressure WBC 3.4 hemoglobin 9.3 and platelets 64 Sodium 151 potassium 3.7 chloride 117 bicarb is 32 BUN 15 and creatinine 0.75 and a.m. cortisol level is 10. Current medications reviewed. Objective - Vital Signs Vital signs: Vital Signs Temp 98.1 F 11/07/21 12:00 Pulse 59 L 11/07/21 20:00 Resp 20 11/07/21 20:00 BP 108/68 11/07/21 20:00 Pulse Ox 94 L 11/07/21 20:00 FiO2 Intake & Output 11/07/21 11/07/21 11/08/21 06:59 18:59 06:59 Intake Total 9672.846 2046 350 Output Total 2300 1650 625 Balance -548.199 375 -275 Weight 103.6 kg Intake: IV 1200 1150 Dextrose 5% in Water 1, 100 900 000 ml @ 100 mls/hr IV . Q10H [facility] Rx#:[id number] Dextrose 5%-0.9% NaCl 1, 1100 100 000 ml @ 100 mls/hr IV . Q10H [facility] Rx#:[id number] ceFAZolin 1,000 mg In 150 Sodium Chloride 0.9% 50 ml @ 100 mls/hr IVPB Q8H [facility] Rx#:[id number] Intake, IV Titration 71.801 75 350 Amount Dextrose 5% in Water 1, 75 300 000 ml @ 75 mls/hr IV . [id number] [facility] Rx#:[id number] Norepinephrine 4 mg In 21.801 Sodium Chloride 0.9% 250 ml @ 0.05 MCG/KG/MIN 19. 701 mls/hr IV .[id number] [facility] Rx#:[id number] ceFAZolin 1,000 mg In 50 50 Sodium Chloride 0.9% 50 ml @ 100 mls/hr IVPB Q8H [facility] Rx#:[id number] Oral 480 800 Output: Urine 2300 1650 625 Other: Voiding Method Indwelling Catheter Indwelling Catheter - Exam PHYSICAL EXAMINATION: Patient is lying in the bed comfortably, no acute distress, awake alert but lethargic and drowsy... HEENT: Normocephalic. Neck is supple. Pupils reactive. Nostrils clear. Oral cavity is moist. Neck reveals no JVD, carotid bruits, or thyromegaly. CHEST EXAMINATION: Trachea is central. Symmetrical expansion. Lung hall clear to auscultation and percussion. CARDIAC: Normal S1, S2 with no gallops. No murmurs ABDOMEN: Soft. Bowel sounds normal. No organomegaly. No abdominal bruits. Extremities: reveal no edema. No clubbing or cyanosis Neurologically awake, alert, oriented x3 with well-coordinated movements. No focal deficits noted Skin: No rash or skin lesions. Psychiatric: Cooperative. Nonsuicidal Musculoskeletal: No joint swelling or deformity. Normal range of motion. - Labs CBC & Chem 7: 11/07/21 05:21 11/07/21 05:21 Labs: Abnormal Lab Results - Last 24 Hours (Table) 11/07/21 11/07/21 11/07/21 Range/Units 05: 05:21 16:08 WBC 3.4 L (3.8-10.6) k/uL RBC 3.13 L (4.30-5.90) m/uL Hgb 9.3 L (13.0-17.5) gm/dL Hct 29.4 L (39.0-53.0) % RDW 18.2 H (11.5-15.5) % Plt Count 64 L (150-450) k/uL Lymphocytes # 0.8 L (1.0-4.8) k/uL Sodium 151 H (137-145) mmol/L Chloride 117 H (98-107) mmol/L Carbon Dioxide 32 H (22-30) mmol/L POC Glucose (mg/dL) 103 H (75-99) mg/dL Assessment and Plan Assessment: Sick sinus syndrome with near syncopal status post permanent pacemaker placement Hypernatremia due to dehydration volume depletion Hypotension Elevated TSH possible sick euthyroid syndrome. Hydrocephalus Diabetes type 2 with hypoglycemic episodes Hypertension Hyperlipidemia DVT prophylaxis plan: Patient will be continued on telemetry monitoring. Status post permanent pacemaker placement. Continue with IV hydration with D5 water. Current with home medications and including levothyroxine. off levofed. started on midodrin. Follow-up closely. Cardiology is on board. Time with Patient: Greater than 30
[2021-11-08] MEDS: DEXTROSE 5% IN WATER 1,000 ML IV SCH (04:36)
[2021-11-08] MEDS: MIDODRINE 5 MG TAB PO SCH ×3 (06:36→17:35)
[2021-11-08] MEDS: LEVOTHYROXINE 75 MCG TAB PO SCH (06:36)
[2021-11-08 06:51] LABS: Glucose,Whole Blood 90 mg/dL (75-99)
[2021-11-08] MEDS: INSULIN ASPART (NovoLOG) 100 UNIT/ML VIAL SQ SCH ×4 (07:32→21:17)
--- NOTE | 2021-11-08 07:44 | P.PN ---
Subjective HISTORY OF PRESENTING ILLNESS This is a 51-year-old gentleman was admitted to the hospital with dizziness and sinus pauses of more than 10 seconds and up to 20 seconds. Patient had a temporary pacemaker followed by permanent pacemaker. Patient became hypotensive. Patient had a repeat echocardiogram last night which did not reveal any evidence of pericardial effusion. Patient was treated with Levophed and IV fluids. His blood pressure is running about 9200 systolic. Today, denies any chest pain and doesn't appear to be in acute distress. Chest x-ray showed stable lead position. Threshold her stable but R waves of small in bipolar mode, measuring only 2.5. There were up to 6 at the time of implantation the unipolar mode, except for. We'll continue monitor. Most probably doesn't need a ventricular pacing . Most probably can be managed with atrial pacing and sensing. Patient also developed some hypernatremia. The fluids are being changed to D5W this will be addressed by primary care. From cardiac standpoint. Patient to be to the telemetry unit and increase activity as tolerated 11/06 Patient seen and examined. Patient has been on low-dose of Levophed which was weaned off this morning currently blood pressures in the 90s over 70s. He denies any chest pain or pressure. Remains atrial paced without significant issues on telemetry. He has remained weak needing assistance to stand up and states normally ambulatory on his own. 11/07 Continue examined. Patient was placed back on low dose of levophed. Patient remains hypernatremic and receiving D5W. He is having large volumes of urine output and admits to polydipsia. He has had increased sodium levels in the past as well on further review and admits that history of hypernatremia. Findings may be consistent with diabetes insipidus. 11/08 Patient seen and examined. Has remained off of norepinephrine with the addition of Midrin. Cortisol noted to be relatively normal at 9 however this was in the afternoon. No significant arrhythmias. Sodium this morning pending. PHYSICAL EXAMINATION Vital signs reviewed. CONSTITUTIONAL: No apparent distress. HEENT: Head is normocephalic. Pupils are equal, round. Sclerae anicteric. Mucous membranes of the mouth are moist. No JVD. No carotid bruit. CHEST EXAMINATION: Lungs are clear to auscultation. No chest wall tenderness is noted on palpation or with deep breathing. HEART EXAMINATION: Regular rate and rhythm. S1, S2 heard. No murmurs, gallops or rub. ABDOMEN: Soft, nontender. Positive bowel sounds. EXTREMITIES: 2+ peripheral pulses, +2+ lower extremity edema and no calf tenderness. NEUROLOGIC EXAMINATION: Patient is awake, alert and oriented x3. +nystagmus ASSESSMENT 1. Sick sinus syndrome status post dual-chamber. Pacemaker 2. Hypernatremia with polydipsia and polyuria with history of similar in the past. Rule out diabetes insipidus 3. History of hydrocephalus 4. Hypotension postoperatively, no significant pericardial effusion noted on repeat echo 5. Chronic lower extremity edema likely component of venous insufficiency PLAN Continue supportive care. Nephrology recommendations for hypernatremia Hopefully discharge in next 24-48 hours of remains hemodynamically stable and sodium improved. Although cortisol is normal still may be component of adrenal insufficiency and may consider outpt desmopressin stim test. Objective - Vital Signs Vital signs: Vital Signs Temp 97.4 F L 11/08/21 04:00 Pulse 65 11/08/21 07:00 Resp 6 L 11/08/21 07:00 BP 103/54 11/08/21 07:00 Pulse Ox 95 11/08/21 07:00 FiO2 Intake & Output 11/07/21 11/08/21 11/08/21 18:59 06:59 18:59 Intake Total 2024 950 75 Output Total 1650 1865 75 Balance 375 -915 0 Weight 108.9 kg Intake: IV 1150 Dextrose 5% in Water 1, 900 000 ml @ 100 mls/hr IV . Q10H [facility] Rx#:[id number] Dextrose 5%-0.9% NaCl 1, 100 000 ml @ 100 mls/hr IV . Q10H [facility] Rx#:[id number] ceFAZolin 1,000 mg In 150 Sodium Chloride 0.9% 50 ml @ 100 mls/hr IVPB Q8H [facility] Rx#:[id number] Intake, IV Titration 75 950 75 Amount Dextrose 5% in Water 1, 75 900 75 000 ml @ 75 mls/hr IV . [id number] [facility] Rx#:[id number] ceFAZolin 1,000 mg In 50 Sodium Chloride 0.9% 50 ml @ 100 mls/hr IVPB Q8H [facility] Rx#:[id number] Oral 800 Output: Urine 1650 1865 75 Other: Voiding Method Indwelling Catheter Indwelling Catheter - Labs CBC & Chem 7: 11/07/21 05:21 11/07/21 05:21 Labs: Abnormal Lab Results - Last 24 Hours (Table) 11/07/21 Range/Units 16:08 POC Glucose (mg/dL) 103 H (75-99) mg/dL
[2021-11-08] MEDS: NOREPINEPHRINE 4 MG in SODIUM CHLORIDE 0.9% 250 ML IV SCH (08:00)
[2021-11-08] MEDS: SERTRALINE 100 MG TAB PO SCH (08:15)
[2021-11-08] MEDS: ATORVASTATIN 20 MG TAB PO SCH (08:15)
[2021-11-08] MEDS: LOSARTAN 50 MG TAB PO SCH (08:15)
[2021-11-08 08:37] LABS: African American GFR (CKD) >90 (>60 ml/min/1.73 sqM); Albumin 2.7 g/dL (3.5-5.0); Anion Gap 3 mmol/L; Blood Urea Nitrogen 18 mg/dL (9-20); Calcium 8.1 mg/dL (8.4-10.2); Carbon Dioxide 29 mmol/L (22-30); Chloride 110 mmol/L (98-107); Glucose 130 mg/dL (74-99); Non-African American GFR(CKD) >90 (>60 ml/min/1.73 sqM); Phosphorus 3.7 mg/dL (2.5-4.5); Potassium 4.3 mmol/L (3.5-5.1); Sodium 142 mmol/L (137-145)
--- NOTE | 2021-11-08 10:01 | P.PN ---
Subjective Patient is seen for follow-up for hyponatremia. He has had polyuria and polydipsia. There is concern for underlying diabetes insipidus. Urine output had been at about 3 50 mL an hour yesterday. However today once the serum sodium is corrected urine output has been around 100-1 50 mL an hour. And sodium is down to 142 today. Urine osmolality was 393 and random urine sodium was 127. No significant complaints today. Patient has not been drinking as much currently. Objective - Vital Signs Vital signs: Vital Signs Temp 98.7 F 11/08/21 08:00 Pulse 60 11/08/21 08:00 Resp 18 11/08/21 08:00 BP 96/54 11/08/21 08:00 Pulse Ox 97 11/08/21 08:00 FiO2 Intake & Output 11/07/21 11/08/21 11/08/21 18:59 06:59 18:59 Intake Total 2024 950 75 Output Total 1650 1865 75 Balance 375 -915 0 Weight 108.9 kg Intake: IV 1150 Dextrose 5% in Water 1, 900 000 ml @ 100 mls/hr IV . Q10H [facility] Rx#:[id number] Dextrose 5%-0.9% NaCl 1, 100 000 ml @ 100 mls/hr IV . Q10H [facility] Rx#:[id number] ceFAZolin 1,000 mg In 150 Sodium Chloride 0.9% 50 ml @ 100 mls/hr IVPB Q8H [facility] Rx#:[id number] Intake, IV Titration 75 950 75 Amount Dextrose 5% in Water 1, 75 900 75 000 ml @ 75 mls/hr IV . [id number] [facility] Rx#:[id number] ceFAZolin 1,000 mg In 50 Sodium Chloride 0.9% 50 ml @ 100 mls/hr IVPB Q8H [facility] Rx#:[id number] Oral 800 Output: Urine 1650 1865 75 Other: Voiding Method Indwelling Catheter Indwelling Catheter Indwelling Catheter - Exam Obese nontender Awake alert and oriented 3 Examination of the heart S1 and S2 Examination of the lungs bilateral breath sounds are heard Abdomen is soft obese nontender Examination of lower extremities shows no significant edema. Chronic skin changes noted - Labs CBC & Chem 7: 11/07/21 05:21 11/08/21 07:45 Labs: Abnormal Lab Results - Last 24 Hours (Table) 11/07/21 11/08/21 Range/Units 16:08 07:45 Chloride 110 H (98-107) mmol/L Glucose 130 H (74-99) mg/dL POC Glucose (mg/dL) 103 H (75-99) mg/dL Calcium 8.1 L (8.4-10.2) mg/dL Albumin 2.7 L (3.5-5.0) g/dL Assessment and Plan Assessment: 1. Hypernatremia associated with polyuria and polydipsia in a patient with history of hydrocephalus. Rule out diabetes insipidus. No other reasons for polyuria identified at this time. Blood sugars are not elevated. Patient was on hydrochlorothiazide which is now discontinued. Currently maintained on D5W which I will continue. Urine osmolality was 393 which is not significantly low or high enough for solute diuresis. Polydipsia seems to have improved with improvement in polyuria as well 1 serum sodium was corrected. I will continue to monitor for now. Consider desmopressin challenge depending on urine output over the next 24 hours. 2. Bradycardia with sick sinus syndrome status post pacemaker placement 3. Hypotension was related to hypovolemia. Currently maintained on D5W and started on midodrine 4. History of hydrocephalus details not known 5. History of hypothyroidism with TSH around 6 at the time of admission 7. History of hypertension maintained on losartan at home and hydrochlorothiazide's. Both medications currently on hold Plan: Continue D5W Continue to monitor urine output and oral intake for another 24 hours Considered desmopressin challenge with serial measurement of urine osmolality depending on the urine output over the next 24 hours.
[2021-11-08 11:50] LABS: Glucose,Whole Blood 97 mg/dL (75-99)
--- NOTE | 2021-11-08 14:45 | PN ---
PROGRESS NOTE DATE OF SERVICE: 11/08/2021 This 51-year-old gentleman admitted with weakness and near-syncope had sick sinus syndrome. Patient had pacemaker implantation. Patient has baseline mental status changes. The labs are showing some pancytopenia. Past medical history reviewed. Review of systems could not be taken. CURRENT MEDICATIONS: Reviewed. They include Lipitor. Doses and the rest of the medications are reviewed. PHYSICAL EXAMINATION: Pulse is 62, blood pressure 84/60, respiration 19. HEENT: Conjunctivae normal. NECK: No jugular venous distention. CARDIOVASCULAR: S1, S2 muffled. RESPIRATION: Breath sounds diminished at the bases. ABDOMEN: Soft. LEGS: No edema. No swelling. NERVOUS SYSTEM: Diffusely weak. LABS: Reviewed; as mentioned earlier. ASSESSMENT: 1. Sick sinus syndrome, status post pacemaker placement. 2. Mild pancytopenia. 3. Hypernatremia. 4. Elevated TSH, possibly sick euthyroid syndrome. 5. Hydrocephalus. 6. Multiple medical issues. RECOMMENDATIONS AND DISCUSSION: I recommend to continue current medications, continue with the monitoring, symptomatic treatment. I would recommend repeat labs. Continue the current medications, including antibiotics. Monitor blood pressure closely. Further recommendations to follow. Reduce the dose of Cozaar to 25. MMODL / IJN: [id number] /
[2021-11-08 16:20] LABS: Glucose,Whole Blood 100 mg/dL (75-99)
[2021-11-08 20:23] LABS: Glucose,Whole Blood 93 mg/dL (75-99)
[2021-11-08] MEDS: MELATONIN 3 MG TABLET PO SCH (21:17)
[2021-11-09] MEDS: LEVOTHYROXINE 75 MCG TAB PO SCH (05:28)
[2021-11-09 06:43] LABS: Glucose,Whole Blood 81 mg/dL (75-99)
[2021-11-09] MEDS: INSULIN ASPART (NovoLOG) 100 UNIT/ML VIAL SQ SCH ×4 (06:45→20:33)
[2021-11-09] MEDS: MIDODRINE 5 MG TAB PO SCH ×3 (06:47→18:23)
[2021-11-09 07:17] LABS: Anisocytosis Slight; Basophils % (A) 0 %; Eosinophils % (A) 1 %; HCT 27.8 % (39.0-53.0); HGB 8.9 gm/dL (13.0-17.5); Hypochromasia Slight; Lymphocytes # (A) 1.1 k/uL (1.0-4.8); Lymphocytes % (A) 26 %; MCH 29.4 pg (25.0-35.0); MCHC 31.9 g/dL (31.0-37.0); MCV 92.1 fL (80.0-100.0); Monocytes # (A) 0.2 k/uL (0-1.0); Monocytes % (A) 6 %; Neutrophils # (A) 2.7 k/uL (1.3-7.7); Neutrophils % (A) 64 %; Poikilocytosis Slight; RBC 3.02 m/uL (4.30-5.90); RDW 17.8 % (11.5-15.5); WBC 4.2 k/uL (3.8-10.6)
[2021-11-09 07:19] LABS: ALT 45 U/L (4-49); AST 89 U/L (17-59); African American GFR (CKD) >90 (>60 ml/min/1.73 sqM); Albumin 2.6 g/dL (3.5-5.0); Alkaline Phosphatase 180 U/L (38-126); Anion Gap 7 mmol/L; Blood Urea Nitrogen 21 mg/dL (9-20); Calcium 7.7 mg/dL (8.4-10.2); Carbon Dioxide 29 mmol/L (22-30); Chloride 105 mmol/L (98-107); Glucose 83 mg/dL (74-99); Non-African American GFR(CKD) >90 (>60 ml/min/1.73 sqM); Potassium 3.8 mmol/L (3.5-5.1); Sodium 141 mmol/L (137-145); Total Bilirubin 0.3 mg/dL (0.2-1.3); Total Protein 5.3 g/dL (6.3-8.2)
[2021-11-09 07:20] LABS: Platelet Count 78 k/uL (150-450)
[2021-11-09] MEDS ORDERED: LOSARTAN 25 MG TAB PO SCH (09:00)
[2021-11-09] MEDS: DEXTROSE 5% IN WATER 1,000 ML IV SCH ×2 (10:27→12:57)
[2021-11-09] MEDS: ATORVASTATIN 20 MG TAB PO SCH (10:43)
[2021-11-09] MEDS: HEPARIN SODIUM,PORCINE/PF 5,000 UNIT/0.5 ML SYRINGE SQ SCH ×2 (10:43→18:23)
[2021-11-09] MEDS: SERTRALINE 100 MG TAB PO SCH (10:44)
--- NOTE | 2021-11-09 11:12 | P.PN ---
Subjective Patient is seen for follow-up for hyponatremia. He has had polyuria and polydipsia. There is concern for underlying diabetes insipidus. Urine output had been at about 350 mL an hour yesterday. However, once the serum sodium is corrected urine output has been around 100-1 50 mL an hour. And sodium is down to 141 today. Urine osmolality was 393 and random urine sodium was 127. No significant complaints today. Patient has not been drinking as much currently. Urine output did go back up to around 400-200/h Patient remains on D5W at 75 mL an hour Objective - Vital Signs Vital signs: Vital Signs Temp 98.7 F 11/09/21 08:00 Pulse 60 11/09/21 10:00 Resp 20 11/09/21 10:00 BP 78/50 11/09/21 10:00 Pulse Ox 94 L 11/09/21 10:00 FiO2 Intake & Output 11/08/21 11/09/21 11/09/21 18:59 06:59 18:59 Intake Total 75 150 Output Total 675 550 700 Balance -600 -550 -550 Intake: Intake, IV Titration 75 150 Amount Dextrose 5% in Water 1, 75 150 000 ml @ 75 mls/hr IV . [id number] [facility] Rx#:[id number] Output: Urine 675 550 700 Other: Voiding Method Indwelling Catheter Indwelling Catheter - Exam Obese nontender Awake alert and oriented 3 Examination of the heart S1 and S2 Examination of the lungs bilateral breath sounds are heard Abdomen is soft obese nontender Examination of lower extremities shows no significant edema. Chronic skin changes noted - Labs CBC & Chem 7: 11/09/21 06:22 11/09/21 06:22 Labs: Abnormal Lab Results - Last 24 Hours (Table) 11/08/21 11/09/21 11/09/21 Range/Units 16:18 06:22 06:22 RBC 3.02 L (4.30-5.90) m/uL Hgb 8.9 L (13.0-17.5) gm/dL Hct 27.8 L (39.0-53.0) % RDW 17.8 H (11.5-15.5) % Plt Count 78 L (150-450) k/uL BUN 21 H (9-20) mg/dL POC Glucose (mg/dL) 100 H (75-99) mg/dL Calcium 7.7 L (8.4-10.2) mg/dL AST 89 H (17-59) U/L Alkaline Phosphatase 180 H (38-126) U/L Total Protein 5.3 L (6.3-8.2) g/dL Albumin 2.6 L (3.5-5.0) g/dL Assessment and Plan Assessment: 1. Hypernatremia associated with polyuria and polydipsia in a patient with history of hydrocephalus. Rule out diabetes insipidus. No other reasons for polyuria identified at this time. Blood sugars are not elevated. Patient was on hydrochlorothiazide which is now discontinued. Currently maintained on D5W which I will continue. Urine osmolality was 393 which is not significantly low or high enough for solute diuresis. Polydipsia appears to have improved when serum sodium was corrected. Urine output had also decreased yesterday however seems to have picked up again to about 200-400 mL an hour. 2. Bradycardia with sick sinus syndrome status post pacemaker placement 3. Hypotension was related to hypovolemia. Currently maintained on D5W and started on midodrine 4. History of hydrocephalus details not known 5. History of hypothyroidism with TSH around 6 at the time of admission 7. History of hypertension maintained on losartan at home and hydrochlorothiazide's. Both medications currently on hold Plan: Continue D5W Proceed with desmopressin seen challenge Check urine osmolality every 30 minutes for the next 2 hours after IV desmopressin
[2021-11-09 11:27] LABS: Glucose,Whole Blood 99 mg/dL (75-99)
[2021-11-09] MEDS ORDERED: DESMOPRESSIN ACETATE 2 MCG in SODIUM CHLORIDE 0.9% 50 ML IVPB ONE (12:00)
--- NOTE | 2021-11-09 14:37 | P.PN ---
Subjective Progress Note Date: 11/09/21 This is a pleasant 51-year-old male who was recently admitted with with weakness and near syncope and sick sinus syndrome and is status post pacemaker implantation and is being closely monitored in the ICU. Patient also with baseline mental status changes and nephrology following as patient was hyperna tremic. Patient's sodium improved at 141 today. Patient with some hypotension and recommend discontinuing blood pressure medications. Patient is being started on midodrine and maintained on gentle IV hydration. Patient given DDAVP and undergoing serial osmolality monitoring per nephrology. Patient is afebrile. Denies any chest pain or shortness of breath. Review of systems: Unable to obtain as patient is confused All medications have been reviewed Active Medications Acetaminophen (Acetaminophen Tab 325 Mg Tab) 650 mg PO Q6HR PRN PRN Reason: Mild Pain Atorvastatin Calcium (Atorvastatin 20 Mg Tab) 20 mg PO DAILY [facility] Last Admin: 11/09/21 10:43 Dose: 20 mg Heparin Sodium (Porcine) (Heparin Sodium,Porcine/Pf 5,000 Unit/0.5 Ml Syringe) 5,000 unit SQ Q8HR [facility] Last Admin: 11/09/21 10:43 Dose: 5,000 unit Cefazolin Sodium 1,000 mg/ (Sodium Chloride) 50 mls @ 100 mls/hr IVPB Q8H [facility] Last Admin: 11/09/21 12:57 Dose: 100 mls/hr Dextrose/Water (Dextrose 5%-Water Iv Soln) 1,000 mls @ 75 mls/hr IV .[id number] [facility] Last Admin: 11/09/21 12:57 Dose: 75 mls/hr Insulin Aspart (Insulin Aspart (Novolog) 100 Unit/Ml Vial) 0 unit SQ ACHS [facility]; Protocol Last Admin: 11/09/21 12:17 Dose: Not Given Levothyroxine Sodium (Levothyroxine 75 Mcg Tab) 150 mcg PO 0630 [facility] Last Admin: 11/09/21 05:28 Dose: 150 mcg Melatonin (Melatonin 3 Mg Tablet) 3 mg PO HS [facility] Last Admin: 11/08/21 21:17 Dose: Not Given Midodrine (Midodrine 5 Mg Tab) 5 mg PO AC-TID [facility] Last Admin: 11/09/21 12:57 Dose: 5 mg Miscellaneous Information (Potassium Replacement Protocol 1 Each Misc) 1 each MISCELLANE DAILY PRN; Protocol PRN Reason: Per Protocol Morphine Sulfate (Morphine Sulfate 4 Mg/Ml Syringe) 4 mg IVP Q3HR PRN PRN Reason: Pain Last Admin: 11/05/21 02:10 Dose: 4 mg Naloxone HCl (Naloxone 0.4 Mg/Ml 1 Ml Vial) 0.2 mg IV Q2M PRN PRN Reason: Opioid Reversal Sertraline HCl (Sertraline 100 Mg Tab) 100 mg PO DAILY [facility] Last Admin: 11/09/21 10:44 Dose: 100 mg PHYSICAL EXAMINATION: GENERAL: The patient is alert and oriented x4, Well developed, well nourished. HEENT: Pupils are round and equally reacting to light. EOMI. does have scleral i cterus. No conjunctival pallor. Normocephalic, atraumatic. No pharyngeal erythema. No thyromegaly. CARDIOVASCULAR: S1 and S2 muffled PULMONARY: diminished breath sounds bilaterally with no wheezing or rhonchi noted. ABDOMEN: soft. Nontender on exam. obese. non-distended, normoactive bowel yanique nds. No palpable organomegaly. MUSCULOSKELETAL: No joint swelling or deformity. EXTREMITIES: No cyanosis, clubbing, or pedal edema. Right hip surgical dressing is intact NEUROLOGICAL: Gross neurological examination did not reveal any focal deficits. Diffuse weakness SKIN: No rashes. Assessment: Sick sinus syndrome, status post pacemaker placement Mild pancytopenia Hyponatremia Elevated TSH, possibly sick euthyroid syndrome Hypertension history currently hypotensive and being started on Midodrine Hydrocephalus Multiple medical issues GI prophylaxis DVT prophylaxis Full code Plan: Recommend to continue with current medications and management with cardiology and nephrology following. Recent sodium improved today at 141 and is maintained on frequent omolality monitoring per nephrology and being given a dose of DDAVP. Blood pressures have been on the soft side and will discontinue blood pressure medications and monitor closely. Will follow-up with repeat labs and continue with other medications as prescribed. Patient resides at an [facility] home and social work following and has reported they will be provided supportive care at a specialist [facility] and this is the plan currently. Will have PT/OT therapy evaluate the patient. Due to multiple complex medical issues, prognosis is guarded. The impression and plan of care has been dictated by Irma Gordon, nurse practitioner as directed. Dr. Samir MD I have performed a history and examination and MDM of this patient, discussed the same with the dictator, and agree with the dictator's assessment and plan as written ,documented as a scribe. Based on total visit time, I have performed more than 50% of the visit. Any additional findings or plans will be noted. Objective - Vital Signs Vital signs: Vital Signs Temp 97.6 F 11/09/21 12:00 Pulse 60 11/09/21 11:00 Resp 14 11/09/21 12:00 BP 90/56 11/09/21 12:00 Pulse Ox 96 11/09/21 12:00 FiO2 Intake & Output 11/08/21 11/09/21 11/09/21 18:59 06:59 18:59 Intake Total 75 150 Output Total 675 550 700 Balance -600 -550 -550 Intake: Intake, IV Titration 75 150 Amount Dextrose 5% in Water 1, 75 150 000 ml @ 75 mls/hr IV . [id number] [facility] Rx#:[id number] Output: Urine 675 550 700 Other: Voiding Method Indwelling Catheter Indwelling Catheter Indwelling Catheter - Labs CBC & Chem 7: 11/09/21 06:22 11/09/21 06:22 Labs: Abnormal Lab Results - Last 24 Hours (Table) 11/08/21 11/09/21 11/09/21 Range/Units 16:18 06:22 06:22 RBC 3.02 L (4.30-5.90) m/uL Hgb 8.9 L (13.0-17.5) gm/dL Hct 27.8 L (39.0-53.0) % RDW 17.8 H (11.5-15.5) % Plt Count 78 L (150-450) k/uL BUN 21 H (9-20) mg/dL POC Glucose (mg/dL) 100 H (75-99) mg/dL Calcium 7.7 L (8.4-10.2) mg/dL AST 89 H (17-59) U/L Alkaline Phosphatase 180 H (38-126) U/L Total Protein 5.3 L (6.3-8.2) g/dL Albumin 2.6 L (3.5-5.0) g/dL
--- NOTE | 2021-11-09 16:38 | PN ---
PROGRESS NOTE Mr. Cobb came into the hospital. He has multiple comorbid conditions, including sick sinus syndrome, had a dual-chamber pacemaker uneventfully. Pacemaker has functioned well. He has hyponatremia with polydipsia, polyuria and history of hydrocephalus. However, he is hemodynamically stable. Pacemaker is working well, appears to be stable. Vital signs are stable. S1-S2 heard normally. Short systolic murmur is evident. Lungs reveal diminished air entry. Lower extremities reveal bilateral trace edema, diminished pulses. Central nervous system assessment was not performed. Pacemaker is functioning well. Upon discharge, he will follow up with Dr. Bee or Dr. Downey. MMODL / IJN: [id number] /
[2021-11-09 17:54] LABS: Glucose,Whole Blood 98 mg/dL (75-99)
[2021-11-09 20:30] LABS: Glucose,Whole Blood 86 mg/dL (75-99)
[2021-11-09] MEDS: MELATONIN 3 MG TABLET PO SCH (20:35)
[2021-11-10] MEDS: HEPARIN SODIUM,PORCINE/PF 5,000 UNIT/0.5 ML SYRINGE SQ SCH ×4 (00:43→23:36)
[2021-11-10] MEDS: DEXTROSE 5% IN WATER 1,000 ML IV SCH ×2 (00:44→08:34)
[2021-11-10 06:19] LABS: Glucose,Whole Blood 70 mg/dL (75-99)
[2021-11-10] MEDS: INSULIN ASPART (NovoLOG) 100 UNIT/ML VIAL SQ SCH ×4 (06:37→20:20)
[2021-11-10] MEDS: LEVOTHYROXINE 75 MCG TAB PO SCH (06:53)
[2021-11-10] MEDS: MIDODRINE 5 MG TAB PO SCH ×3 (06:53→17:57)
[2021-11-10 07:06] LABS: Anisocytosis Slight; Basophils % (A) 1 %; Eosinophils # (A) 0.1 k/uL (0-0.7); Eosinophils % (A) 3 %; HCT 27.7 % (39.0-53.0); Hypochromasia Slight; Lymphocytes # (A) 0.9 k/uL (1.0-4.8); Lymphocytes % (A) 31 %; MCH 29.7 pg (25.0-35.0); MCHC 32.3 g/dL (31.0-37.0); MCV 91.8 fL (80.0-100.0); Mean Platelet Volume 11.3; Monocytes # (A) 0.2 k/uL (0-1.0); Monocytes % (A) 6 %; Neutrophils # (A) 1.7 k/uL (1.3-7.7); Neutrophils % (A) 57 %; Poikilocytosis Slight; RBC 3.02 m/uL (4.30-5.90); RDW 17.5 % (11.5-15.5)
[2021-11-10 07:10] LABS: African American GFR (CKD) >90 (>60 ml/min/1.73 sqM); Anion Gap 4 mmol/L; Blood Urea Nitrogen 20 mg/dL (9-20); Calcium 7.8 mg/dL (8.4-10.2); Carbon Dioxide 28 mmol/L (22-30); Chloride 106 mmol/L (98-107); Glucose 76 mg/dL (74-99); Non-African American GFR(CKD) >90 (>60 ml/min/1.73 sqM); Potassium 3.8 mmol/L (3.5-5.1); Sodium 138 mmol/L (137-145)
[2021-11-10 07:11] LABS: Platelet Count 79 k/uL (150-450)
[2021-11-10] MEDS: SERTRALINE 100 MG TAB PO SCH (08:22)
[2021-11-10] MEDS: ATORVASTATIN 20 MG TAB PO SCH (08:22)
[2021-11-10 11:35] LABS: Glucose,Whole Blood 104 mg/dL (75-99)
--- NOTE | 2021-11-10 12:02 | PN ---
PROGRESS NOTE Mr. Cobb is in a sinus rhythm. His pacemaker site is clean and dry. He is going to be probably moved to the rehab unit or a assisted facility. He is hemodynamically stable. S1-S2 heard normally. Short systolic murmur noted. Lungs reveal bilateral air entry. Abdomen and lower extremity exam unchanged. Plan is to continue current medications. No other recommendations. MMODL / IJN: [id number] /
[2021-11-10 14:19] VITALS: BMI 41.2
[2021-11-10 14:42] LABS: African American GFR (CKD) >90 (>60 ml/min/1.73 sqM); Anion Gap 4 mmol/L; Blood Urea Nitrogen 19 mg/dL (9-20); Calcium 7.8 mg/dL (8.4-10.2); Carbon Dioxide 29 mmol/L (22-30); Chloride 102 mmol/L (98-107); Glucose 87 mg/dL (74-99); Non-African American GFR(CKD) >90 (>60 ml/min/1.73 sqM); Potassium 3.6 mmol/L (3.5-5.1); Sodium 135 mmol/L (137-145)
[2021-11-10 16:06] LABS: Glucose,Whole Blood 82 mg/dL (75-99)
[2021-11-10] MEDS: MELATONIN 3 MG TABLET PO SCH (20:20)
--- NOTE | 2021-11-10 22:42 | P.PN ---
Subjective Patient is seen for follow-up for hyponatremia. He has had polyuria and polydipsia. There is concern for underlying diabetes insipidus. Urine output had been at about 350 mL an hour yesterday. However, once the serum sodium is corrected urine output has been around 100-1 50 mL an hour. And sodium is down to 141 today. Urine osmolality was 393 and random urine sodium was 127. No significant complaints today. Patient has not been drinking as much currently. Urine output has decreased now. Patient remains on D5W at 75 mL an hour S/p desmopressin challenge test yesterday. Urine osmolality doubled with administartion of desmopressin suggesting central DI, partial or complete. Objective - Vital Signs Vital signs: Vital Signs Temp 98.4 F 11/10/21 20:00 Pulse 60 11/10/21 21:00 Resp 9 L 11/10/21 21:00 BP 81/68 11/10/21 21:00 Pulse Ox 99 11/10/21 20:00 FiO2 Intake & Output 11/10/21 11/10/21 11/11/21 06:59 18:59 06:59 Intake Total 375 1840 50 Output Total 550 675 500 Balance -175 1165 -450 Weight 108.9 kg Intake: IV 375 1200 Dextrose 5% in Water 1, 375 1200 000 ml @ 75 mls/hr IV . [id number] [facility] Rx#:[id number] Intake, IV Titration 50 Amount ceFAZolin 1,000 mg In 50 Sodium Chloride 0.9% 50 ml @ 100 mls/hr IVPB Q8H [facility] Rx#:[id number] Oral 640 Output: Urine 550 675 Stool 500 Other: Voiding Method Indwelling Catheter Indwelling Catheter Indwelling Catheter # Bowel Movements 1 1 - Exam Obese nontender Awake alert and oriented 3 Examination of the heart S1 and S2 Examination of the lungs bilateral breath sounds are heard Abdomen is soft obese nontender Examination of lower extremities shows no significant edema. Chronic skin changes noted - Labs CBC & Chem 7: 11/10/21 06:11/10/21 14:03 Labs: Abnormal Lab Results - Last 24 Hours (Table) 11/10/21 11/10/21 11/10/21 Range/Units 06:01 06:01 06:17 WBC 3.0 L (3.8-10.6) k/uL RBC 3.02 L (4.30-5.90) m/uL Hgb 9.0 L (13.0-17.5) gm/dL Hct 27.7 L (39.0-53.0) % RDW 17.5 H (11.5-15.5) % Plt Count 79 L (150-450) k/uL Lymphocytes # 0.9 L (1.0-4.8) k/uL Sodium (137-145) mmol/L Creatinine (0.66-1.25) mg/dL POC Glucose (mg/dL) 70 L (75-99) mg/dL Calcium 7.8 L (8.4-10.2) mg/dL 11/10/21 11/10/21 Range/Units 11:33 14:03 WBC (3.8-10.6) k/uL RBC (4.30-5.90) m/uL Hgb (13.0-17.5) gm/dL Hct (39.0-53.0) % RDW (11.5-15.5) % Plt Count (150-450) k/uL Lymphocytes # (1.0-4.8) k/uL Sodium 135 L (137-145) mmol/L Creatinine 0.60 L (0.66-1.25) mg/dL POC Glucose (mg/dL) 104 H (75-99) mg/dL Calcium 7.8 L (8.4-10.2) mg/dL Assessment and Plan Assessment: 1. Hypernatremia associated with polyuria and polydipsia in a patient with history of hydrocephalus. Rule out diabetes insipidus. No other reasons for polyuria identified at this time. Blood sugars are not elevated. Patient was on hydrochlorothiazide which is now discontinued. Currently maintained on D5W which I will continue. Urine osmolality was 393 which is not significantly low or high enough for solute diuresis. Urine osmolality doubled with desmopressin administration suggesting partial or complete DI 2. Bradycardia with sick sinus syndrome status post pacemaker placement 3. Hypotension was related to hypovolemia. Currently maintained on D5W and started on midodrine 4. History of hydrocephalus details not known 5. History of hypothyroidism with TSH around 6 at the time of admission 7. History of hypertension maintained on losartan at home and hydrochlorothiazide's. Both medications currently on hold Plan: D/c D5W as sodium is lower and pt has received desmopressin. Once sodium starts to increase start desmopressin QHS F/u with Endocrinology post discharge.
--- NOTE | 2021-11-11 01:04 | P.PN ---
Subjective Progress Note Date: 11/10/21 This is a pleasant 51-year-old male who was recently admitted with with weakness and near syncope and sick sinus syndrome and is status post pacemaker implantation and is being closely monitored in the ICU. Patient also with baseline mental status changes and nephrology following as patient was hyperna tremic. Patient's sodium improved at 141 today. Patient with some hypotension and recommend discontinuing blood pressure medications. Patient is being started on midodrine and maintained on gentle IV hydration. Patient given DDAVP and undergoing serial osmolality monitoring per nephrology. Patient is afebrile. Denies any chest pain or shortness of breath. 11/10/2021 Patient is seen in the ICU with nephrology and cardiology following. Patient is continued on D5 in water and also midodrine per nephrology. Patient was given a dose of desmopressin yesterday and is also continued on IV cefazolin. Cardiology following as well as patient is status post pacemaker placement. WBC reveals 3.0, hemoglobin is 9.0, platelets are 79, sodium is 138, potassium 3.8 him a BUN 20, creatinine 0.68, calcium is 7.8, urine osmolality was 612. Patient does continue with indwelling Zavaleta catheter and will continue for now. Patient is afebrile and denies any chest pain or shortness of breath. Review of systems: Unable to obtain as patient is confused All medications have been reviewed Active Medications Acetaminophen (Acetaminophen Tab 325 Mg Tab) 650 mg PO Q6HR PRN PRN Reason: Mild Pain Last Admin: 11/09/21 18:22 Dose: 650 mg Atorvastatin Calcium (Atorvastatin 20 Mg Tab) 20 mg PO DAILY [facility] Last Admin: 11/10/21 08:22 Dose: 20 mg Heparin Sodium (Porcine) (Heparin Sodium,Porcine/Pf 5,000 Unit/0.5 Ml Syringe) 5,000 unit SQ Q8HR [facility] Last Admin: 11/10/21 08:22 Dose: Not Given Cefazolin Sodium 1,000 mg/ (Sodium Chloride) 50 mls @ 100 mls/hr IVPB Q8H [facility] Last Admin: 11/10/21 04:23 Dose: 100 mls/hr Dextrose/Water (Dextrose 5%-Water Iv Soln) 1,000 mls @ 75 mls/hr IV .[id number] [facility] Last Admin: 11/10/21 08:34 Dose: 75 mls/hr Insulin Aspart (Insulin Aspart (Novolog) 100 Unit/Ml Vial) 0 unit SQ ACHS [facility]; Protocol Last Admin: 11/10/21 06:37 Dose: Not Given Levothyroxine Sodium (Levothyroxine 75 Mcg Tab) 150 mcg PO 0630 [facility] Last Admin: 11/10/21 06:53 Dose: 150 mcg Melatonin (Melatonin 3 Mg Tablet) 3 mg PO HS [facility] Last Admin: 11/09/21 20:35 Dose: 3 mg Midodrine (Midodrine 5 Mg Tab) 5 mg PO AC-TID [facility] Last Admin: 11/10/21 06:53 Dose: 5 mg Miscellaneous Information (Potassium Replacement Protocol 1 Each Misc) 1 each MISCELLANE DAILY PRN; Protocol PRN Reason: Per Protocol Morphine Sulfate (Morphine Sulfate 4 Mg/Ml Syringe) 4 mg IVP Q3HR PRN PRN Reason: Pain Last Admin: 11/05/21 02:10 Dose: 4 mg Naloxone HCl (Naloxone 0.4 Mg/Ml 1 Ml Vial) 0.2 mg IV Q2M PRN PRN Reason: Opioid Reversal Sertraline HCl (Sertraline 100 Mg Tab) 100 mg PO DAILY [facility] Last Admin: 11/10/21 08:22 Dose: 100 mg PHYSICAL EXAMINATION: GENERAL: The patient is alert and oriented x4, Well developed, well nourished. HEENT: Pupils are round and equally reacting to light. EOMI. no scleral icterus. No conjunctival pallor. Normocephalic, atraumatic. No pharyngeal erythema. No thyromegaly. CARDIOVASCULAR: S1 and S2 muffled PULMONARY: diminished breath sounds bilaterally with no wheezing or rhonchi noted. ABDOMEN: soft. Nontender on exam. obese. non-distended, normoactive bowel sounds. No palpable organomegaly. MUSCULOSKELETAL: No joint swelling or deformity. EXTREMITIES: No cyanosis, clubbing, or pedal edema. Right hip surgical dressing is intact NEUROLOGICAL: Gross neurological examination did not reveal any focal deficits. Diffuse weakness SKIN: No rashes. Assessment: Sick sinus syndrome, status post pacemaker placement Mild pancytopenia Hyponatremia Elevated TSH, possibly sick euthyroid syndrome Increased urine osmolality suggestive of diabetes insipidus status post desmopressin Hypertension history currently hypotensive and being started on Midodrine Hydrocephalus Multiple medical issues GI prophylaxis DVT prophylaxis Full code Plan: Recommend to continue with current medications and management with cardiology and nephrology following. Recent sodium improved today at 135 and was maintaine d on frequent omolality monitoring per nephrology after being given a dose of DDAVP. Blood pressures have been on the soft side and will discontinue blood pressure medications and monitor closely. Patient currently resides at an [facility] home and social work following and will likely need ecf on discharge. Will have PT/OT therapy evaluate the patient. Due to multiple complex medical issues, prognosis is guarded. Follow up with am labs and possible discharge in 24-48 hours. The impression and plan of care has been dictated by Irma Gordon, nurse practitioner as directed. Dr. Samir MD I have performed a history and examination and MDM of this patient, discussed the same with the dictator, and agree with the dictator's assessment and plan as written ,documented as a scribe. Based on total visit time, I have performed more than 50% of the visit. Any additional findings or plans will be noted. Objective - Vital Signs Vital signs: Vital Signs Temp 98.6 F 11/10/21 08:00 Pulse 60 11/10/21 09:00 Resp 11 L 11/10/21 09:00 BP 108/67 11/10/21 09:00 Pulse Ox 99 11/10/21 09:00 FiO2 Intake & Output 11/09/21 11/10/21 11/10/21 18:59 06:59 18:59 Intake Total 875 375 Output Total 1200 550 Balance -325 -175 Intake: IV 725 375 Desmopressin Acetate 2 50 mcg In Sodium Chloride 0. 9% 50 ml @ 200 mls/hr IVPB ONCE ONE Rx#: [id number] Dextrose 5% in Water 1, 675 375 000 ml @ 75 mls/hr IV . [id number] [facility] Rx#:[id number] Intake, IV Titration 150 Amount Dextrose 5% in Water 1, 150 000 ml @ 75 mls/hr IV . [id number] [facility] Rx#:[id number] Output: Urine 1200 550 Other: Voiding Method Indwelling Catheter Indwelling Catheter # Bowel Movements 1 - Labs CBC & Chem 7: 11/10/21 06:01 11/10/21 14:03 Labs: Abnormal Lab Results - Last 24 Hours (Table) 11/10/21 11/10/21 11/10/21 Range/Units 06:01 06:01 06:17 WBC 3.0 L (3.8-10.6) k/uL RBC 3.02 L (4.30-5.90) m/uL Hgb 9.0 L (13.0-17.5) gm/dL Hct 27.7 L (39.0-53.0) % RDW 17.5 H (11.5-15.5) % Plt Count 79 L (150-450) k/uL Lymphocytes # 0.9 L (1.0-4.8) k/uL POC Glucose (mg/dL) 70 L (75-99) mg/dL Calcium 7.8 L (8.4-10.2) mg/dL
[2021-11-11] MEDS: LEVOTHYROXINE 75 MCG TAB PO SCH (06:28)
[2021-11-11 08:53] LABS: Anisocytosis Slight; Basophils % (A) 1 %; Eosinophils # (A) 0.1 k/uL (0-0.7); Eosinophils % (A) 3 %; HCT 28.8 % (39.0-53.0); HGB 9.3 gm/dL (13.0-17.5); Hypochromasia Slight; Lymphocytes # (A) 0.9 k/uL (1.0-4.8); Lymphocytes % (A) 27 %; MCH 29.5 pg (25.0-35.0); MCHC 32.2 g/dL (31.0-37.0); MCV 91.4 fL (80.0-100.0); Mean Platelet Volume 11.4; Monocytes # (A) 0.2 k/uL (0-1.0); Monocytes % (A) 6 %; Neutrophils % (A) 62 %; Poikilocytosis Slight; RBC 3.15 m/uL (4.30-5.90); RDW 17.4 % (11.5-15.5); WBC 3.2 k/uL (3.8-10.6)
[2021-11-11] MEDS: INSULIN ASPART (NovoLOG) 100 UNIT/ML VIAL SQ SCH ×4 (08:55→20:17)
[2021-11-11] MEDS: HEPARIN SODIUM,PORCINE/PF 5,000 UNIT/0.5 ML SYRINGE SQ SCH ×2 (08:57→16:50)
[2021-11-11] MEDS: SERTRALINE 100 MG TAB PO SCH (08:57)
[2021-11-11] MEDS: ATORVASTATIN 20 MG TAB PO SCH (08:57)
[2021-11-11] MEDS: MIDODRINE 5 MG TAB PO SCH ×3 (08:57→16:50)
[2021-11-11 09:05] LABS: Platelet Count 84 k/uL (150-450)
[2021-11-11 09:18] LABS: African American GFR (CKD) >90 (>60 ml/min/1.73 sqM); Anion Gap 4 mmol/L; Blood Urea Nitrogen 14 mg/dL (9-20); Calcium 7.7 mg/dL (8.4-10.2); Carbon Dioxide 31 mmol/L (22-30); Chloride 101 mmol/L (98-107); Glucose 83 mg/dL (74-99); Non-African American GFR(CKD) >90 (>60 ml/min/1.73 sqM); Potassium 3.8 mmol/L (3.5-5.1); Sodium 136 mmol/L (137-145)
[2021-11-11 09:33] LABS: Large Platelets Present
--- NOTE | 2021-11-11 10:53 | P.PN ---
Subjective Patient is seen for follow-up for hyponatremia. He has had polyuria and polydipsia. There is concern for underlying diabetes insipidus. Urine output had been at about 350 mL an hour Urine osmolality was 393 and random urine sodium was 127. S/p desmopressin challenge Urine osmolality doubled with administration of desmopressin suggesting central DI, partial or complete. Objective - Vital Signs Vital signs: Vital Signs Temp 98.4 F 11/11/21 08:00 Pulse 60 11/11/21 08:00 Resp 12 11/11/21 08:30 BP 96/74 11/11/21 08:00 Pulse Ox 97 11/11/21 08:00 FiO2 Intake & Output 11/10/21 11/11/21 11/11/21 18:59 06:59 18:59 Intake Total 1840 50 150 Output Total 675 750 800 Balance 1165 -700 -650 Weight 108.9 kg Intake: IV 1200 150 Dextrose 5% in Water 1, 1200 150 000 ml @ 75 mls/hr IV . [id number] [facility] Rx#:[id number] Intake, IV Titration 50 Amount ceFAZolin 1,000 mg In 50 Sodium Chloride 0.9% 50 ml @ 100 mls/hr IVPB Q8H [facility] Rx#:[id number] Oral 640 Output: Urine 675 250 800 Stool 500 Other: Voiding Method Indwelling Catheter Indwelling Catheter Indwelling Catheter # Bowel Movements 1 1 - Exam Obese nontender Awake alert and oriented 3 Currently on bedside commode Chronic lower extremity skin changes noted [employer] exam grossly intact - Labs CBC & Chem 7: 11/11/21 08:05 11/11/21 08:05 Labs: Abnormal Lab Results - Last 24 Hours (Table) 11/10/21 11/10/21 11/11/21 Range/Units 11:33 14:03 08:05 WBC 3.2 L (3.8-10.6) k/uL RBC 3.15 L (4.30-5.90) m/uL Hgb 9.3 L (13.0-17.5) gm/dL Hct 28.8 L (39.0-53.0) % RDW 17.4 H (11.5-15.5) % Plt Count 84 L (150-450) k/uL Lymphocytes # 0.9 L (1.0-4.8) k/uL Sodium 135 L (137-145) mmol/L Carbon Dioxide (22-30) mmol/L Creatinine 0.60 L (0.66-1.25) mg/dL POC Glucose (mg/dL) 104 H (75-99) mg/dL Calcium 7.8 L (8.4-10.2) mg/dL 11/11/21 Range/Units 08:05 WBC (3.8-10.6) k/uL RBC (4.30-5.90) m/uL Hgb (13.0-17.5) gm/dL Hct (39.0-53.0) % RDW (11.5-15.5) % Plt Count (150-450) k/uL Lymphocytes # (1.0-4.8) k/uL Sodium 136 L (137-145) mmol/L Carbon Dioxide 31 H (22-30) mmol/L Creatinine 0.62 L (0.66-1.25) mg/dL POC Glucose (mg/dL) (75-99) mg/dL Calcium 7.7 L (8.4-10.2) mg/dL Assessment and Plan Assessment: 1. Hypernatremia associated with polyuria and polydipsia in a patient with history of hydrocephalus. Rule out diabetes insipidus. No other reasons for polyuria identified at this time. Blood sugars are not elevated. Patient was on hydrochlorothiazide which is now discontinued. Currently maintained on D5W which I will continue. Urine osmolality was 393 which is not significantly low or high enough for solute diuresis. Urine osmolality doubled with desmopressin administration suggesting partial or complete DI 2. Bradycardia with sick sinus syndrome status post pacemaker placement 3. Hypotension was related to hypovolemia. Currently maintained on D5W and sta rted on midodrine 4. History of hydrocephalus details not known 5. History of hypothyroidism with TSH around 6 at the time of admission 7. History of hypertension maintained on losartan at home and hydrochlorothiazide's. Both medications currently on hold Plan: Since serum sodium is 136 I will hold off on starting desmopressin. Patient continues to have polydipsia and polyuria. Add desmopressin daily at bedtime once serum sodium is in the 140s range. Recommend to see endocrinology as outpatient post discharge
[2021-11-11 11:37] LABS: Glucose,Whole Blood 102 mg/dL (75-99)
--- NOTE | 2021-11-11 13:25 | P.PN ---
Subjective Progress Note Date: 11/11/21 This is a pleasant 51-year-old male who was recently admitted with with weakness and near syncope and sick sinus syndrome and is status post pacemaker implantation and is being closely monitored in the ICU. Patient also with baseline mental status changes and nephrology following as patient was hyperna tremic. Patient's sodium improved at 141 today. Patient with some hypotension and recommend discontinuing blood pressure medications. Patient is being started on midodrine and maintained on gentle IV hydration. Patient given DDAVP and undergoing serial osmolality monitoring per nephrology. Patient is afebrile. Denies any chest pain or shortness of breath. 11/10/2021 Patient is seen in the ICU with nephrology and cardiology following. Patient is continued on D5 in water and also midodrine per nephrology. Patient was given a dose of desmopressin yesterday and is also continued on IV cefazolin. Cardiology following as well as patient is status post pacemaker placement. WBC reveals 3.0, hemoglobin is 9.0, platelets are 79, sodium is 138, potassium 3.8 him a BUN 20, creatinine 0.68, calcium is 7.8, urine osmolality was 612. Patient does continue with indwelling Zavaleta catheter and will continue for now. Patient is afebrile and denies any chest pain or shortness of breath. 11/11/2021 Patient is seen and continues to be in the ICU with nephrology following closely. Patient is status post pacemaker placement and has been followed by cardiology and will follow-up in the outpatient setting. Patient is to receive another dose of desmopressin possibly tomorrow if sodiums are in the 140s per nephrology. sodium is currently 136. Nephrology recommends close monitoring over 24 hours prior to discharge to [facility]. Patient reporting some congestion and slight cough and will order chest x-ray. Patient is afebrile and tolerating diet with no reports of nausea or vomiting. Patient denies any chest pain or shortness of breath. Recommend continue holding blood pressures as blood pressures are soft and oxygen saturation is currently 99% on room air. Review of systems: Constitutional: No reports of fatigue, fever, or chills Cardiovascular: No reports of chest pain or palpitations Respiratory: No reports of shortness of breath, reports congestion and slight cough GI: No reports of nausea, vomiting, or diarrhea : No reports of dysuria or retention Neurovascular: No reports of weakness or numbness All medications have been reviewed Active Medications Acetaminophen (Acetaminophen Tab 325 Mg Tab) 650 mg PO Q6HR PRN PRN Reason: Mild Pain Last Admin: 11/09/21 18:22 Dose: 650 mg Atorvastatin Calcium (Atorvastatin 20 Mg Tab) 20 mg PO DAILY [facility] Last Admin: 11/11/21 08:57 Dose: 20 mg Heparin Sodium (Porcine) (Heparin Sodium,Porcine/Pf 5,000 Unit/0.5 Ml Syringe) 5,000 unit SQ Q8HR [facility] Last Admin: 11/11/21 08:57 Dose: 5,000 unit Cefazolin Sodium 1,000 mg/ (Sodium Chloride) 50 mls @ 100 mls/hr IVPB Q8H [facility] Last Admin: 11/11/21 12:10 Dose: 100 mls/hr Insulin Aspart (Insulin Aspart (Novolog) 100 Unit/Ml Vial) 0 unit SQ ACHS [facility]; Protocol Last Admin: 11/11/21 12:09 Dose: Not Given Levothyroxine Sodium (Levothyroxine 75 Mcg Tab) 150 mcg PO 0630 [facility] Last Admin: 11/11/21 06:28 Dose: 150 mcg Melatonin (Melatonin 3 Mg Tablet) 3 mg PO HS [facility] Last Admin: 11/10/21 20:20 Dose: 3 mg Midodrine (Midodrine 5 Mg Tab) 5 mg PO AC-TID [facility] Last Admin: 11/11/21 12:11 Dose: 5 mg Miscellaneous Information (Potassium Replacement Protocol 1 Each Misc) 1 each MISCELLANE DAILY PRN; Protocol PRN Reason: Per Protocol Morphine Sulfate (Morphine Sulfate 4 Mg/Ml Syringe) 4 mg IVP Q3HR PRN PRN Reason: Pain Last Admin: 11/05/21 02:10 Dose: 4 mg Naloxone HCl (Naloxone 0.4 Mg/Ml 1 Ml Vial) 0.2 mg IV Q2M PRN PRN Reason: Opioid Reversal Sertraline HCl (Sertraline 100 Mg Tab) 100 mg PO DAILY [facility] Last Admin: 11/11/21 08:57 Dose: 100 mg PHYSICAL EXAMINATION: GENERAL: The patient is alert and oriented x4, Well developed, well nourished. HEENT: Pupils are round and equally reacting to light. EOMI. no scleral icterus. No conjunctival pallor. Normocephalic, atraumatic. No pharyngeal erythema. No thyromegaly. CARDIOVASCULAR: S1 and S2 muffled PULMONARY: diminished breath sounds bilaterally with no wheezing or rhonchi noted. ABDOMEN: soft. Nontender on exam. obese. non-distended, normoactive bowel sounds. No palpable organomegaly. MUSCULOSKELETAL: No joint swelling or deformity. EXTREMITIES: No cyanosis, clubbing, or pedal edema. NEUROLOGICAL: Gross neurological examination did not reveal any focal deficits. Diffuse weakness SKIN: No rashes. Assessment: Sick sinus syndrome, status post pacemaker placement Mild pancytopenia Hyponatremia Elevated TSH, possibly sick euthyroid syndrome Increased urine osmolality suggestive of diabetes insipidus status post desmopressin Hypertension history currently hypotensive and being started on Midodrine Hydrocephalus Multiple medical issues GI prophylaxis DVT prophylaxis Full code Plan: Recommend to continue with current medications and management with cardiology and nephrology following. Recent sodium today is 136 and was maintained on frequent omolality monitoring per nephrology after being given a dose of DDAVP. Blood pressures have been on the soft side and will discontinue blood pressure medications and monitor closely. Patient currently resides at an [facility] home and social work following and will likely need ecf on discharge. [facility] accepted [facility] patient. Patient with some cough and congestion will add chest x-ray and follow-up. PT/OT therapy following the patient. Due to multiple complex medical issues, prognosis is guarded. Follow up with am labs and possible discharge in 24-48 hours. The impression and plan of care has been dictated by Irma Gordon, nurse practitioner as directed. Dr. Samir MD I have performed a history and examination and MDM of this patient, discussed the same with the dictator, and agree with the dictator's assessment and plan as written ,documented as a scribe. Based on total visit time, I have performed more than 50% of the visit. Any additional findings or plans will be noted. Objective - Vital Signs Vital signs: Vital Signs Temp 98.6 F 11/11/21 12:00 Pulse 60 11/11/21 12:00 Resp 16 11/11/21 12:00 BP 84/50 11/11/21 12:00 Pulse Ox 99 11/11/21 12:00 FiO2 Intake & Output 11/10/21 11/11/21 11/11/21 18:59 06:59 18:59 Intake Total 1840 50 550 Output Total 360 201 6020 Balance 1165 700 -725 Weight 108.9 kg Intake: IV 1200 150 Dextrose 5% in Water 1, 1200 150 000 ml @ 75 mls/hr IV . [id number] [facility] Rx#:[id number] Intake, IV Titration 50 Amount ceFAZolin 1,000 mg In 50 Sodium Chloride 0.9% 50 ml @ 100 mls/hr IVPB Q8H [facility] Rx#:[id number] Oral 640 400 Output: Urine 979 701 1149 Stool 500 Other: Voiding Method Indwelling Catheter Indwelling Catheter Indwelling Catheter # Bowel Movements 1 1 - Labs CBC & Chem 7: 11/11/21 08:05 11/11/21 08:05 Labs: Abnormal Lab Results - Last 24 Hours (Table) 11/10/21 11/11/21 11/11/21 Range/Units 14:03 08:05 08:05 WBC 3.2 L (3.8-10.6) k/uL RBC 3.15 L (4.30-5.90) m/uL Hgb 9.3 L (13.0-17.5) gm/dL Hct 28.8 L (39.0-53.0) % RDW 17.4 H (11.5-15.5) % Plt Count 84 L (150-450) k/uL Lymphocytes # 0.9 L (1.0-4.8) k/uL Sodium 135 L 136 L (137-145) mmol/L Carbon Dioxide 31 H (22-30) mmol/L Creatinine 0.60 L 0.62 L (0.66-1.25) mg/dL POC Glucose (mg/dL) (75-99) mg/dL Calcium 7.8 L 7.7 L (8.4-10.2) mg/dL 11/11/21 Range/Units 11:34 WBC (3.8-10.6) k/uL RBC (4.30-5.90) m/uL Hgb (13.0-17.5) gm/dL Hct (39.0-53.0) % RDW (11.5-15.5) % Plt Count (150-450) k/uL Lymphocytes # (1.0-4.8) k/uL Sodium (137-145) mmol/L Carbon Dioxide (22-30) mmol/L Creatinine (0.66-1.25) mg/dL POC Glucose (mg/dL) 102 H (75-99) mg/dL Calcium (8.4-10.2) mg/dL
[2021-11-11] MEDS: guaiFENesin 600 MG TABLET.ER PO SCH ×2 (13:54→20:19)
--- NOTE | 2021-11-11 13:54 | XR ---
EXAMINATION TYPE: XR chest 1V portable DATE OF EXAM: 11/11/2021 CLINICAL HISTORY: Difficulty breathing progress study. TECHNIQUE: Single AP portable upright view of the chest is obtained. COMPARISON: Chest x-ray from November 05, 2021 FINDINGS: Lungs remain clear. Cardiac silhouette size upper limits of normal dual-lead pacemaker. Vi sualized osseous structures are intact. Left lung apex obscured by overlying chin. IMPRESSION: No acute process.
--- NOTE | 2021-11-11 14:26 | PN ---
PROGRESS NOTE Mr. Cobb had a permanent pacemaker placed by Dr. Bee. He has multiple other issues. He is going to a rehab/residential type facility. However, his vitals are stable. No JVD. S1-S2 heard normally. Heart sounds heard distantly. Lungs reveal diminished air entry. Abdomen and lower extremity exam unchanged. Plan is to continue current medications. He should see Dr. Bee in the next one week after his discharge. I will see the patient as needed. MMODL / IJN: [id number] /
[2021-11-11 16:44] LABS: Glucose,Whole Blood 87 mg/dL (75-99)
[2021-11-11 20:15] LABS: Glucose,Whole Blood 95 mg/dL (75-99)
[2021-11-11] MEDS: MELATONIN 3 MG TABLET PO SCH (20:19)
[2021-11-12] MEDS: HEPARIN SODIUM,PORCINE/PF 5,000 UNIT/0.5 ML SYRINGE SQ SCH ×3 (00:18→17:24)
[2021-11-12] MEDS: LEVOTHYROXINE 75 MCG TAB PO SCH (06:28)
[2021-11-12] MEDS: MIDODRINE 5 MG TAB PO SCH ×3 (06:28→16:47)
--- NOTE | 2021-11-12 09:58 | P.PN ---
Subjective Patient is seen for follow-up for hyponatremia. He has had polyuria and polydipsia. There is concern for underlying diabetes insipidus. Urine output had been at about 350 mL an hour Urine osmolality was 393 and random urine sodium was 127. S/p desmopressin challenge Urine osmolality doubled with administration of desmopressin suggesting central DI, partial or complete. Serum sodium has been in the 1:30 range therefore desmopressin has not been started. Patient received a dose for the test about 2 days ago. He can be discharged from nephrology standpoint and follow-up with the close monitoring of electrolytes as outpatient. We will see him in the office for follow-up in 1 week and if his sodium level rises again patient will need to be evaluated by endocrinology and started on desmopressin. Objective - Vital Signs Vital signs: Vital Signs Temp 97.8 F 11/12/21 03:43 Pulse 62 11/12/21 03:43 Resp 15 11/12/21 03:43 BP 92/58 11/12/21 03:43 Pulse Ox 96 11/12/21 03:43 FiO2 Intake & Output 11/11/21 11/12/21 11/12/21 18:59 06:59 18:59 Intake Total 550 400 Output Total 1841 1830 Balance -1291 -1430 Intake: IV 150 Dextrose 5% in Water 1, 150 000 ml @ 75 mls/hr IV . [id number] [facility] Rx#:[id number] Oral 400 400 Output: Urine 1840 1830 Stool 1 Other: Voiding Method Indwelling Catheter Indwelling Catheter # Bowel Movements 1 - Exam Obese nontender Awake alert and oriented 3 Currently on bedside commode Chronic lower extremity skin changes noted PRN OCCUPATIONAL THERAPIST exam grossly intact - Labs CBC & Chem 7: 11/11/21 08:05 11/12/21 09:10 Labs: Abnormal Lab Results - Last 24 Hours (Table) 11/11/21 11/12/21 Range/Units 11:34 09:10 Sodium 132 L (137-145) mmol/L POC Glucose (mg/dL) 102 H (75-99) mg/dL Assessment and Plan Assessment: 1. Hypernatremia associated with polyuria and polydipsia in a patient with history of hydrocephalus. Rule out diabetes insipidus. No other reasons for polyuria identified at this time. Blood sugars are not elevated. Patient was on hydrochlorothiazide which is now discontinued. Currently maintained on D5W which I will continue. Urine osmolality was 393 which is not significantly low or high enough for solute diuresis. Urine osmolality doubled with desmopressin administration suggesting partial or complete DI. Serum sodium staying 130s range with reading of 132 today. Patient can be discharged without desmopressin and we'll need close monitoring of electrolytes as outpatient. If his sodium level rises again he will need to be started on desmopressin and evaluated by endocrinology. 2. Bradycardia with sick sinus syndrome status post pacemaker placement 3. Hypotension was related to hypovolemia. Currently maintained on D5W and started on midodrine 4. History of hydrocephalus details not known 5. History of hypothyroidism with TSH around 6 at the time of admission 7. History of hypertension maintained on losartan at home and hydro chlorothiazide's. Both medications currently on hold Plan: Okay to discharge patient. We will hold off on starting desmopressin as sodium level is 132 Check labs in 3-4 days post discharge If serum sodium rises again patient will need to be started on desmopressin and evaluated by endocrinology
[2021-11-12] MEDS: SERTRALINE 100 MG TAB PO SCH (10:40)
[2021-11-12] MEDS: ATORVASTATIN 20 MG TAB PO SCH (10:40)
[2021-11-12] MEDS: guaiFENesin 600 MG TABLET.ER PO SCH (10:40)
--- NOTE | 2021-11-12 13:36 | P.DS ---
Providers Date of admission: 11/04/21 05:54 Expected date of discharge: 11/12/21 Attending physician: Dalia Dawson Consults: 11/04/21 06:10 Consult Physician Urgent Consulting Provider: Bunny Paiz Consult Reason/Comments: bradycardia Do you want consulting provider notified?: Yes 11/07/21 08:07 Consult Physician Routine Consulting Provider: Reena Escobar Consult Reason/Comments: re: hypernatremia, polyuria, rule out diabetes insp idus Do you want consulting provider notified?: Yes, Notify in am Primary care physician: Ifeanyi Medina Hospital Course: Final diagnosis Sick sinus syndrome, status post pacemaker placement Mild pancytopenia Hyponatremia Elevated TSH, possibly sick euthyroid syndrome Increased urine osmolality suggestive of diabetes insipidus status post de smopressin Hypertension history currently hypotensive Hydrocephalus Multiple medical issues GI prophylaxis DVT prophylaxis Full code Discharge disposition Patient is being discharged in a stable condition with guarded prognosis to [facility] for continued PT/OT therapy. Patient will follow-up with Dr. Medina in the outpatient setting upon discharge. Patient is to follow up with endocrine and nephrology in the outpatient setting as scheduled. Recommend repeat labs of CMP and magnesium in 2-3 days. Total time taken is greater than 35 minutes. Hospital course This is a 51-year-old male who was recently admitted weakness and near syncope and sick sinus syndrome and is status post pacemaker implantation and also having mental status changes with nephrology following closely. Patient was extremely hypernatremic and sodiums were corrected although there is concern for possible diabetes insipidus either partial or complete as patient continues with polydipsia and polyuria. Nephrology following and was given a dose of desmopressin with improvement although patient continues with polydipsia and polyuria and recommending endocrine follow-up in the next 1-2 weeks. Patient may likely need desmopressin at nighttime if sodium continues to elevate. Recommend repeat labs in 2-3 days per nephrology of CMP and magnesium and close monitoring of intake and output. Patient normally has history of hyper-tension although has been hypotensive and started on midodrine and will continue and monitor and hold blood pressure medications for now. Recommend Accu-Cheks before meals and at bedtime and close monitoring of blood sugars. Also to follow-up with primary care provider Dr. Medina in the outpatient setting. Recommend outpatient follow-up with nephrology in one week as well. Patient to follow up with cardiology in the outpatient setting. Currently no reports of chest pain, shortness of breath, or palpitations. Patient is afebrile. No reports of nausea or vomiting and patient is tolerating diet. Patient will be going to [facility] today. Guarded prognosis On exam vital signs are stable. Cardio S1, S2 are muffled. Respiratory system shows diminished breath sounds at the bases with no wheezing or rhonchi noted. Abdomen is soft and obese, and nontender. Nervous system shows diffuse weakness. Please refer to medication reconciliation sheet for a list of medications. The impression and plan of care has been dictated by Irma Gordon, Nurse Practitioner as directed. Dr. Samir MD I have performed a history and examination and MDM of this patient, discussed the same with the dictator, and agree with the dictator's assessment and plan as written ,documented as a scribe. Based on total visit time, I have performed more than 50% of the visit. Patient Condition at Discharge: Stable Plan - Discharge Summary Discharge Rx Participant: Yes New Discharge Prescriptions: New Heparin Sodium,Porcine [Heparin Sodium] 5,000 unit SQ Q12HR 30 Days #60 each guaiFENesin [Mucinex] 600 mg PO Q12HR tab Midodrine [ProAmatine] 5 mg PO AC-TID tab Acetaminophen Tab [Tylenol] 650 mg PO Q6HR PRN tab PRN Reason: Mild Pain Continue Sertraline HCl [Zoloft] 100 mg PO DAILY Levothyroxine Sodium [Synthroid] 150 mcg PO DAILY Febuxostat 40 mg PO DAILY Simvastatin 40 mg PO DAILY Melatonin 3 mg PO HS Discontinued Hydrochlorothiazide [hydroCHLOROthiazide] 12.5 mg PO DAILY Losartan [Cozaar] 50 mg PO DAILY Discharge Medication List Febuxostat 40 mg PO DAILY 02/11/20 [History] Levothyroxine Sodium [Synthroid] 150 mcg PO DAILY 02/11/20 [History] Sertraline HCl [Zoloft] 100 mg PO DAILY 02/11/20 [History] Simvastatin 40 mg PO DAILY 02/11/20 [History] Melatonin 3 mg PO HS 11/04/21 [History] Acetaminophen Tab [Tylenol] 650 mg PO Q6HR PRN tab 11/12/21 [Rx] Heparin Sodium,Porcine [Heparin Sodium] 5,000 unit SQ Q12HR 30 Days #60 each 11/12/21 [Rx] Midodrine [ProAmatine] 5 mg PO AC-TID tab 11/12/21 [Rx] guaiFENesin [Mucinex] 600 mg PO Q12HR tab 11/12/21 [Rx] Follow up Appointment(s)/Referral(s): Ifeanyi Medina DO [Primary Care Provider] - 1-2 days Unique Muller MD [STAFF PHYSICIAN] - 1 Week Delio Jenkins DO [STAFF PHYSICIAN] - 1 Week Ambulatory/Diagnostic Orders: Comprehensive Metabolic Panel [LAB.AMB] Time Frame: 3 Days, Location: None Selected Activity/Diet/Wound Care/Special Instructions: Patient is going to [facility] as tolerated Follow-up with Dr. Medina primary care provider Follow-up with trash man and endocrine in 1-2 weeks Continue current medications Continue consistent carb diet Patient follow-up with cardiology outpatient Recommend repeat labs of CMP and magnesium in 2-3 days Recommend to continue with Accu-Cheks before meals and at bedtime Discharge Disposition: TRANSFER TO SNF/ECF
[2021-11-12 14:23] VITALS: PULSE 60
[2021-11-12 17:23] LABS: Glucose,Whole Blood 91 mg/dL (75-99)
[2021-11-12 17:24] VITALS: BP 131/80; RESP 14; TEMP 98
--- NOTE | 2021-11-17 10:24 | CA ---
Transthoracic Echo Report Name: Nehemias Cobb Age: 51 Gender: M : 1970 Exam Date: 11/04/2021 12:03 Exam Location: [facility] Ht (in): 64 Wt (lb): 228 Ordering Physician: Valentine Haider Attending/Referring Phys: [id number], [employer] Rowan Walker, HERO Procedure CPT: Indications: LV function Cardiac Hx: Technical Quality: Fair Contrast 1: Total Dose (mL): Contrast 2: Total Dose (mL): MEASUREMENTS (Male / Female) Normal Values 2D ECHO LV Diastolic Diameter PLAX 4.2 cm 4.2 - 5.9 / 3.9 - 5.3 cm LV Systolic Diameter PLAX 2.7 cm IVS Diastolic Thickness 1.1 cm 0.6 - 1.0 / 0.6 - 0.9 cm LVPW Diastolic Thickness 1.1 cm 0.6 - 1.0 / 0.6 - 0.9 cm LV Relative Wall Thickness 0.5 RV Internal Dim ED PLAX 3.3 cm LA Systolic Diameter LX 3.0 cm 3.0 - 4.0 / 2.7 - 3.8 cm LA Volume 67.3 cm??? 18 - 58 / 22 - 52 cm??? M-MODE Aortic Root Diameter MM 3.2 cm MV E Point Septal Separation 0.4 cm AV Cusp Separation MM 1.6 cm DOPPLER AV Peak Velocity 143.6 cm/s AV Peak Gradient 8.2 mmHg MV Area PHT 2.4 cm??? Mitral E Point Velocity 99.3 cm/s Mitral A Point Velocity 48.1 cm/s Mitral E to A Ratio 2.1 MV Deceleration Time 320.4 ms MV E' Velocity 6.2 cm/s Mitral E to MV E' Ratio 16.1 TR Peak Velocity 222.8 cm/s TR Peak Gradient 19.8 mmHg Right Ventricular Systolic Press 23.8 mmHg FINDINGS Left Ventricle Left ventricular ejection fraction is estimated at 60-65 %. Left ventricular cavity size normal. Borderline left ventricular hypertrophy. Right Ventricle Mild right ventricular dilatation. Right ventricular systolic pressure within normal limits. Right Atrium Normal right atrial size. Left Atrium Mildly increased left atrial volume. Mildly increased left atrial area. No evidence for an atrial septal defect. Mitral Valve Trace to mild mitral regurgitation. Aortic Valve Trileaflet aortic valve. No aortic valve stenosis or regurgitation. Tricuspid Valve Mild tricuspid regurgitation. Pulmonic Valve Pulmonic valve not well visualized. Pericardium Normal pericardium. Aorta Normal size aortic root and proximal ascending aorta. CONCLUSIONS #1. Normal left ventricle size with preserved LV function. Borderline hypertrophy. #2. Mild right ventricular dilatation #3. Mild left atrial enlargement Previewed by: Dr. Rafael Bee MD (Electronically Signed) Final Date: 17 November 2021 10:23
--- NOTE | 2021-11-18 08:35 | CDI ---
Documentation Clarification Form Date: 11/17/2021 12:56:10 PM From: April Sampson RN CCDS Admit Date: 11/04/2021 05:54:00 AM Patient Name: Nehemias Cobb Visit Number: [id number] Discharge Date: 11/12/2021 08:30:00 PM ATTENTION: The Clinical Documentation Specialists (CDI) and [facility] Coding Staff appreciate your assistance in clarifying documentation. Please respond to the clarification below the line at the bottom and electronically sign. The CDI & [facility] Coding staff will review the response and follow-up if needed. Please note: Queries are made part of the Legal Health Record. If you have any questions, please contact the author of this message via ITS. Dr. Grey Downey Hypotension postoperatively is documented in your 11/06-11/08 progress notes. The patient is s/p temporary and dual chamber pacemaker insertion on 11/04. Clarification is requested. History/Risk Factors: Hydrocephalus with developmental disability, DM2 and HTN. Presents with fatigue, lightheaded and weak. Found to have significant bradycardia and sick sinus syndrome Clinical Indicators: Blood pressures: 11/03 @2200 118/75 11/04 @0600 106/57, @0700 94/62, @1100 85/51, @11:30 79/53 11/05 @0700 95/60 6/2 @0700 83/48 11/04 Echo: Normal left ventricular systolic function. No pericardial effusion. 11/05 Cardiology: admitted with dizziness and sinus pauses of more than 10 seconds and up to 20 seconds. Patient had a temporary pacemaker followed by permanent pacemaker. Patient became hypotensive. Patient had a repeat echocardiogram last night which did not reveal any evidence of pericardial effusion. Patient was treated with Levophed and IV fluids. 11/06 Cardiology: Hypotension postoperatively 11/06 IM: Patient with some hypotension and recommending discontinuing blood pressure medications. Patient is being started on Midodrine and maintained on gentle IV hydration. 11/07-11/12 Nephrology: Hypernatremia associated with polyuria and polydipsia in a patient with history of hydrocephalus. Rule out diabetes insipidus. Hypotension was related to hypovolemia Treatment: 11/04 -11/05 IV 0.9NS @75/hr; 11/04-11/05 1L IV NS bolus; 11/04 11/06 IV Levophed titrated; 11/07- 11/12 Midodrine 5mg PO TID; 11/06 11/12 IV D5W @100/hr To accurately reflect this patients severity of illness, please clarify if hypotension is a complication of the surgical procedure: [ ] Yes [ X ] No, no tamponade or effusion and not related to pacemaker. Likely related to dehydration related to diabetes insipidus, increased urine output. [ ] Other explanation of clinical findings (please specify) [ ] Unable to determine (no explanation for clinical findings) (Template Last Revised: August 2020) MTDD
== END 2021-11-12 20:30 | DRG 243 ==
LOC: EC 20:07 → 3SCARD 11-04 05:54 → 2SICU 11-04 09:43
PROVIDERS: ADMIT Hospitalist; ATTEND Hospitalist
PROC: 5A1223Z Performance of Cardiac Pacing, Continuous (ICD-10-PCS; 2021-11-04)
PROC: 02H63JZ Insertion of Pacemaker Lead into Right Atrium, Percutaneous Approach (ICD-10-PCS; principal; 2021-11-04 07:30)
PROC: 0JH606Z Insertion of Pacemaker, Dual Chamber into Chest Subcutaneous Tissue and Fascia, Open Approach (ICD-10-PCS; principal; 2021-11-04 07:30)
PROC: 02HK3JZ Insertion of Pacemaker Lead into Right Ventricle, Percutaneous Approach (ICD-10-PCS; principal; 2021-11-04 07:30)
PROC: 05HF33Z Insertion of Infusion Device into Left Cephalic Vein, Percutaneous Approach (ICD-10-PCS; 2021-11-10)
DX: I49.5 Sick sinus syndrome (principal); D61.818 Other pancytopenia; Z68.41 Body mass index [BMI] 40.0-44.9, adult; E87.1 Hypo-osmolality and hyponatremia; G91.9 Hydrocephalus, unspecified; E23.2 Diabetes insipidus; E03.9 Hypothyroidism, unspecified; E07.81 Sick-euthyroid syndrome; E11.649 Type 2 diabetes mellitus with hypoglycemia without coma; E66.9 Obesity, unspecified; E78.5 Hyperlipidemia, unspecified; E86.0 Dehydration; I95.89 Other hypotension; E86.1 Hypovolemia; F32.A Depression, unspecified; I10 Essential (primary) hypertension; I87.2 Venous insufficiency (chronic) (peripheral); J32.0 Chronic maxillary sinusitis; R63.1 Polydipsia; Z79.84 Long term (current) use of oral hypoglycemic drugs; Z79.890 Hormone replacement therapy; Z79.899 Other long term (current) drug therapy; Z82.49 Family history of ischemic heart disease and other diseases of the circulatory system; Z20.822 Contact with and (suspected) exposure to COVID-19; Z28.21 Immunization not carried out because of patient refusal
CPT/HCPCS: 33208; 33210; 36410; 36415; 70450; 71045; 76937; 80048; 80053; 80069; 81003; 82533; 83605; 83935; 84295; 84300; 84436; 84443; 84484; 85025; 85610; 85730; 87502; 87635; 93005; 93306; 93308; 96360; 99285

== ENCOUNTER 2022-03-05 02:21 | Emergency (ER) | payer MEDICARE, OTHER ==
[2022-03-05 03:20] LABS: Basophils % (A) 0 %; Eosinophils # (A) 0.2 k/uL (0-0.7); Eosinophils % (A) 3 %; HCT 38.5 % (39.0-53.0); HGB 12.6 gm/dL (13.0-17.5); Lymphocytes # (A) 1.4 k/uL (1.0-4.8); Lymphocytes % (A) 31 %; MCH 26.5 pg (25.0-35.0); MCHC 32.6 g/dL (31.0-37.0); MCV 81.3 fL (80.0-100.0); Monocytes # (A) 0.2 k/uL (0-1.0); Monocytes % (A) 5 %; Neutrophils # (A) 2.7 k/uL (1.3-7.7); Neutrophils % (A) 59 %; Platelet Count 132 k/uL (150-450); RBC 4.73 m/uL (4.30-5.90); RDW 14.9 % (11.5-15.5); WBC 4.5 k/uL (3.8-10.6)
[2022-03-05 03:28] LABS: INR 0.9 (<1.2); Partial Thromboplastin Time 25.6 sec (22.0-30.0); Prothrombin Time 10.3 sec (9.0-12.0)
[2022-03-05 03:31] LABS: ALT 12 U/L (4-49); AST 18 U/L (17-59); African American GFR (CKD) >90 (>60 ml/min/1.73 sqM); Alkaline Phosphatase 111 U/L (38-126); Anion Gap 12 mmol/L; Blood Urea Nitrogen 17 mg/dL (9-20); Calcium 9.1 mg/dL (8.4-10.2); Carbon Dioxide 25 mmol/L (22-30); Chloride 105 mmol/L (98-107); Glucose 79 mg/dL (74-99); Magnesium 1.7 mg/dL (1.6-2.3); Non-African American GFR(CKD) >90 (>60 ml/min/1.73 sqM); Potassium 3.7 mmol/L (3.5-5.1); Sodium 142 mmol/L (137-145); Total Bilirubin 0.3 mg/dL (0.2-1.3); Total Protein 6.8 g/dL (6.3-8.2)
--- NOTE | 2022-03-05 03:31 | XR ---
EXAMINATION TYPE: XR chest 1V portable DATE OF EXAM: 03/05/2022 COMPARISON: 11/11/2021 HISTORY: Congestion. Chest pain TECHNIQUE: FINDINGS: There is no heart failure nor confluent pneumonic infiltrate. There is left axillary pacema ker. There are chest leads. Costophrenic angles are clear. Bony thorax is intact. IMPRESSION: No active cardiopulmonary disease. There is clearing of some pneumonia left lower lobe co mpared to the old exam.
--- NOTE | 2022-03-05 03:31 | ED ---
Chest Pain HPI - General Chief Complaint: Chest Pain Stated Complaint: Chest Pain Time Seen by Provider: 03/05/22 02:43 Source: patient Mode of arrival: ambulatory Limitations: no limitations - History of Present Illness MD Complaint: chest pain -: week(s) Onset: during rest Pain Location: substernal, left chest Pain Radiation: none Severity: moderate Quality: aching Consistency: intermittent Improves With: nothing Worsens With: nothing Treatments Prior to Arrival: none - Related Data Home Medications Medication Instructions Recorded Confirmed Febuxostat 40 mg PO DAILY 02/11/20 11/04/21 Levothyroxine Sodium [Synthroid] 150 mcg PO DAILY 02/11/20 11/04/21 Sertraline HCl [Zoloft] 100 mg PO DAILY 02/11/20 11/04/21 Simvastatin 40 mg PO DAILY 02/11/20 11/04/21 Melatonin 3 mg PO HS 11/04/21 11/04/21 Previous Rx's Medication Instructions Recorded Acetaminophen Tab [Tylenol] 650 mg PO Q6HR PRN tab 11/12/21 Heparin Sodium,Porcine [Heparin 5,000 unit SQ Q12HR 30 Days #60 11/12/21 Sodium] each Midodrine [ProAmatine] 5 mg PO AC-TID tab 11/12/21 guaiFENesin [Mucinex] 600 mg PO Q12HR tab 11/12/21 Allergies Allergy/AdvReac Type Severity Reaction Status Date / Time No Known Allergies Allergy Verified 03/05/22 02:32 Review of Systems ROS Statement: Those systems with pertinent positive or pertinent negative responses have been documented in the HPI. ROS Other: All systems not noted in ROS Statement are negative. Constitutional: Denies: fever Respiratory: Denies: cough, dyspnea Cardiovascular: Reports: chest pain. Denies: palpitations, orthopnea Gastrointestinal: Denies: abdominal pain, nausea, vomiting, diarrhea Genitourinary: Denies: dysuria, hematuria Musculoskeletal: Denies: back pain Skin: Denies: rash Neurological: Denies: headache, weakness Past Medical History Past Medical History: Diabetes Mellitus, Hyperlipidemia, Hypertension, Thyroid Disorder Additional Past Medical History / Comment(s): hydrocephalus, osteomylitis, legally blind History of Any Multi-Drug Resistant Organisms: None Reported Past Surgical History: No Surgical Hx Reported Past Psychological History: Depression Smoking Status: Never smoker Past Alcohol Use History: None Reported Past Drug Use History: None Reported - Past Family History Mother Brother(s) Family Medical History: Hypertension General Exam Limitations: no limitations General appearance: alert, in no apparent distress Head exam: Present: atraumatic, normocephalic Eye exam: Present: normal appearance. Absent: scleral icterus, conjunctival injection Respiratory exam: Present: normal lung sounds bilaterally. Absent: respiratory distress, wheezes, rales, rhonchi, stridor Cardiovascular Exam: Present: regular rate, normal rhythm, normal heart sounds. Absent: systolic murmur, diastolic murmur, rubs, gallop GI/Abdominal exam: Present: soft. Absent: distended, tenderness, guarding, rebound, rigid, mass Extremities exam: Present: normal inspection, normal capillary refill. Absent: pedal edema, calf tenderness Neurological exam: Present: alert Skin exam: Present: warm, dry, intact, normal color. Absent: rash Course Vital Signs 03/05/22 03/05/22 03/05/22 02:26 04:00 04:32 Temperature 97.6 F Pulse Rate 75 64 Pulse Rate [ 60 Web Database Developer ] Respiratory 22 22 22 Rate Blood Pressure 126/79 126/79 O2 Sat by Pulse 100 97 Oximetry 03/05/22 06:00 Temperature 98.4 F Pulse Rate 61 Pulse Rate [ Web Database Developer ] Respiratory 20 Rate Blood Pressure 131/87 O2 Sat by Pulse 98 Oximetry Disposition Clinical Impression: Chest pain Disposition: HOME SELF-CARE Condition: Good Instructions (If sedation given, give patient instructions): Chest Pain (ED) Is patient prescribed a controlled substance at d/c from ED?: No Referrals: Ifeanyi Medina DO [Primary Care Provider] - 1-2 days
[2022-03-05 06:41] VITALS: RESP 20
[2022-03-05 07:18] VITALS: BP 127/79; PULSE 89; TEMP 97.7
== END 2022-03-05 07:37 | disposition home or self-care (01) ==
LOC: EC 02:21
DX: R07.89 Other chest pain (principal); I10 Essential (primary) hypertension; E11.9 Type 2 diabetes mellitus without complications; E07.9 Disorder of thyroid, unspecified; E78.5 Hyperlipidemia, unspecified; Z79.899 Other long term (current) drug therapy; Z79.890 Hormone replacement therapy
CPT/HCPCS: 36415; 71045; 80053; 83735; 84484; 85025; 85610; 85730; 93005; 99285

== ENCOUNTER → 2022-10-06 | Outpatient (CLI) | payer MEDICARE, OTHER ==
--- NOTE | 2022-10-06 13:52 | CT ---
EXAMINATION TYPE: CT brain wo con DATE OF EXAM: 10/06/2022 COMPARISON: 11/03/2021 HISTORY: c/o headaches CT DLP: 1098.[address] of the brain was performed. The ventricles, basal cisterns and sulci overlying the cerebral convexities demonstrate mild enlargem ent. Again noted is cisterna magna which is a normal variant size. Stable small calcified meningioma or osteoma left parietal region measuring 6 mm. There is no evidence for intracranial hemorrhage or sulcal effacement. There is decreased attenuation about the periventricular white matter and deep white matter of both c erebral hemispheres, compatible with chronic small vessel ischemia. Differential diagnosis does inclu de demyelination. No mass effects are seen. No midline shift. Osseous calvarium is intact. If symptoms persist consider MRI. IMPRESSION: 1. Age related atrophic and chronic small vessel ischemic change without acute intracranial process s een at this time.
== END | disposition home or self-care (01) ==
LOC: RADCTMAIN 13:16
PROVIDERS: ATTEND Psychiatry & Neurology Neurology
DX: I67.82 Cerebral ischemia (principal); G31.9 Degenerative disease of nervous system, unspecified; H54.7 Unspecified visual loss; G43.909 Migraine, unspecified, not intractable, without status migrainosus
CPT/HCPCS: 70450

== ENCOUNTER → 2023-03-17 | Outpatient (CLI) | payer MEDICARE, OTHER ==
--- NOTE | 2023-03-17 09:18 | CT ---
EXAMINATION TYPE: CT cervical spine wo con DATE OF EXAM: 03/17/2023 COMPARISON: None HISTORY: 52-year-old male M54.2, cervicalgia, Neck pain and headaches x2 months. TECHNIQUE: Contiguous axial scanning of the cervical spine without IV contrast. Coronal and sagittal reconstructions performed. CT DLP: 916.1 mGycm Automated exposure control for dose reduction was used. FINDINGS: Exam is very limited due to numerous artifacts from large patient body habitus. No craniocervical junction and necrotic, predental space widening, or prevertebral soft tissue swelli ng. Moderate multilevel disc/endplate degenerative changes present with facet and uncovertebral joint art hropathy throughout. Degenerative grade 1 anterolisthesis C6-C7. Remaining alignment is maintained. Disc osteophyte complexes are present throughout. This continues to variable mild spinal canal stenos is throughout. Probably more significant, at least moderate spinal canal stenoses at C4-C5 and C5-C6. Again, assessm ent limited by patient's large body habitus. No acute fracture seen of the cervical spine. At C2-C3, there is mild bilateral neuroforaminal narrowing. At C3-C4, there is mild bilateral neuroforaminal narrowing. At C4-C5, no significant neural foraminal stenosis. At C5-C6, mild bilateral neural foraminal stenosis. At C6-C7, mild left neuroforaminal stenosis. At C7-T1, no significant neural foraminal stenosis. IMPRESSION: 1. ASSESSMENT LIMITED BY PATIENT LARGE BODY HABITUS AND SECONDARY NOISE ARTIFACTS. 2. MODERATE MULTILEVEL SPONDYLOTIC CHANGE. DEGENERATIVE GRADE 1 ANTEROLISTHESIS AT C6-C7. 3. DISC OSTEOPHYTE COMPLEXES AND LIGAMENTUM FLAVUM THICKENING LIKELY CONTRIBUTE TO MILD SPINAL CANAL STENOSES THROUGHOUT. PROBABLY MORE SIGNIFICANT, AT LEAST MODERATE SPINAL CANAL STENOSIS AT C4-C5 AND C5-C6. AGAIN, ASSESSMENT LIMITED. 4. VARIABLE MILD NEUROFORAMINAL STENOSES OUTLINED ABOVE.
== END | disposition home or self-care (01) ==
LOC: RADCTMAIN 07:34
PROVIDERS: ATTEND Psychiatry & Neurology Neurology
DX: M50.20 Other cervical disc displacement, unspecified cervical region (principal); M47.812 Spondylosis without myelopathy or radiculopathy, cervical region; M43.12 Spondylolisthesis, cervical region; M25.78 Osteophyte, vertebrae; M99.71 Connective tissue and disc stenosis of intervertebral foramina of cervical region
CPT/HCPCS: 72125

== ENCOUNTER → 2023-06-06 | Outpatient (CLI) | payer MEDICARE, OTHER ==
--- NOTE | 2023-06-08 08:50 | CT ---
EXAMINATION TYPE: CT brain wo/w con DATE OF EXAM: 06/06/2023 COMPARISON: 10/06/2022 INDICATION: headache x 6 months DLP: 2266.6 mGycm, Automated exposure control for dose reduction was used. CONTRAST: 100 mL Isovue-300 CT of the brain is performed utilizing 3 mm thick sections through the posterior fossa and 3 mm thick sections through the remaining calvarium. Study is performed within 24 hours of arrival to the hosp ital. No abnormal hyperdensity is present to suggest an acute intracranial hemorrhage. There is hypodensity within the posterior fossa extending superiorly in the midline likely is an [facility] hnoid cyst, differential could include markell cisterna magna. This was present previously and appears s table. No acute infarcts are evident. Some mild periventricular white matter hypodensity is present, likely on the basis of chronic white matter ischemic changes. Ventricles and sulci are appropriate for the patient age. There is near complete opacification of the right maxillary sinus. Left maxillary sinus is clear. Jonathan e mild mucosal thickening is within scattered ethmoid air cells, greater on the left posterior ethmoi d air cells. The frontal sinuses and sphenoid sinuses are clear. Mastoid air cells are clear. No suspicious enhancement on postcontrast imaging IMPRESSION: 1. Stable appearance pre and postcontrast CT brain. 2. Chronic appearing periventricular white matter ischemic-type change.
== END | disposition home or self-care (01) ==
LOC: RADCTMAIN 15:50
PROVIDERS: ATTEND Psychiatry & Neurology Neurology
DX: G93.89 Other specified disorders of brain (principal); G43.909 Migraine, unspecified, not intractable, without status migrainosus; I67.82 Cerebral ischemia; G91.9 Hydrocephalus, unspecified; E11.9 Type 2 diabetes mellitus without complications; F32.A Depression, unspecified; I49.5 Sick sinus syndrome; I10 Essential (primary) hypertension; I95.9 Hypotension, unspecified; M10.9 Gout, unspecified; E03.9 Hypothyroidism, unspecified; E78.5 Hyperlipidemia, unspecified; R62.50 Unspecified lack of expected normal physiological development in childhood; Z95.0 Presence of cardiac pacemaker
CPT/HCPCS: 70470; Q9967

== ENCOUNTER → 2024-05-29 | Outpatient (CLI) | payer MEDICARE, OTHER ==
[2024-05-29 11:05] VITALS: BP 139/88; PULSE 59; RESP 16; TEMP 98.5
--- NOTE | 2024-05-29 11:38 | P.SLEEP ---
History of Present Illness DATE: 05/29/2024 CONSULTATION/NEW PATIENT EVALUATION HISTORY OF PRESENT ILLNESS/SLEEP-WAKE EVALUATION: 53-year-old gentleman had been evaluated in the sleep center for possible obstructive sleep apnea hypopnea syndrome. Patient had sleep study around 20 years ago which showed that he has sleep apnea, he was tried on treatment with BiPAP but was not able to use therapy at that time. SLEEP SCHEDULE: Usually sleep schedule from 8 PM to 5:30 AM 7 days a week. FALLING ASLEEP: Sometimes patient has difficulties to fall asleep. DURING SLEEP: Patient has loud snoring and wakes up from sleep 4 times with nocturia. Some of his dreams related to feeling of falling down. Positive history of panic attacks during sleep. Episodes of gasping for air. No history of hypnogogical hallucinations, sleep paralysis, or cataplexy. DURING THE DAY/WAKE STATE: In the morning patient wake up tired, falling asleep during the day. [place] sleepiness scale is increased to 10. Patient may take 3 naps during the day. PAST MEDICAL HISTORY: Blindness since childhood, hypertension, diabetes mellitus, depression, anxiety, headaches, cardiac arrhythmia, hyperlipidemia. PAST SURGICAL HISTORY: Permanent pacemaker insertion, umbilical hernia repair. MEDICATIONS: Please see below. SOCIAL HISTORY: Please see below. FAMILY HISTORY: Please see below. REVIEW OF SYSTEMS: Snoring, multiple awakenings from sleep, sleepiness during the day. No fevers. No double vision. No recent chest pain. No shortness of breath. No abdominal pain. No bleeding episodes. No blood in urine. No seizure episodes. PHYSICAL EXAMINATION: GENERAL: A pleasant blind patient on wheelchair without any distress. VITAL SIGNS: Please see below, weight 269.4 pounds, BMI 79.0. HEENT: PERRLA, EOMI. Evaluation of oropharynx showed tongue protrudes midline, low position of soft palate Mallampati 4, large tongue. NECK: Supple. No JVD. Thyroid is not palpable. 20 inches in circumference. LUNGS: Clear to percussion and to auscultation. Good air exchange. No wheezing or rhonchi. HEART: S1, S2 regular. No murmurs, gallops or rubs. ABDOMEN: Soft and nontender. Bowel sounds are present. No organomegaly appreciated. EXTREMITIES: No clubbing or cyanosis. HAIRSPRING VIBRATOR: Awake, alert, and oriented x3. Cranial nerves 2 to 7 intact. There is no fasciculation or atrophy noted. No focal deficits observed. ASSESSMENT: 1. Loud snoring, multiple awakenings from sleep with panic attacks and gasping for air, large tongue, extremely low position of soft palate Mallampati 4, extremely wide neck 20 inches in circumference. History of obstructive sleep apnea in the past. Obstructive sleep apnea hypopnea syndrome, possibly extremely severe. 2. Blindness since childhood. 3. Morbid obesity, BMI 79.0. 4. Hypertension. 5 diabetes mellitus. 6 . CHF. 7. History of cardiac arrhythmia, status post permanent pacemaker insertion. 8. Anxiety. 9 . Depression. 10. Hyperlipidemia. 11. Status post umbilical hernia repair. PLAN: 1. Polysomnography for evaluation of patient's breathing during sleep. 2. Following plan after reading sleep study. 3. Preferable position during sleep on the side. 4. No driving if patient feels any sleepiness. Patient is aware of civil and criminal liability for unsafe driving. 5. Sleep hygiene with regular sleep time for at least 7.5-8 hours. 6. Watching and losing weight. Thank you very much for referring this patient for consultation. Sincerely, Francisco Wu MD, PhD, FAASM. Diplomat of [place] [employer], Sleep Medicine Board by [place] [employer] [place] [employer] [facility] [place] cc: Luis Manuel Rodriguez MD Past Medical History Past Medical History: Diabetes Mellitus, Hyperlipidemia, Hypertension, Sleep Apnea/CPAP/BIPAP, Thyroid Disorder Additional Past Medical History / Comment(s): hydrocephalus, osteomylitis, legally blind, depression/anxiety, snoring, headaches History of Any Multi-Drug Resistant Organisms: None Reported Past Surgical History: No Surgical Hx Reported Additional Past Surgical History / Comment(s): umbilical hernia, pacemaker Past Psychological History: Anxiety, Depression Smoking Status: Never smoker Past Alcohol Use History: None Reported Past Drug Use History: None Reported - Past Family History Mother Brother(s) Family Medical History: Hypertension uncle Family Medical History: Hypertension Medications and Allergies Home Medications Medication Instructions Recorded Confirmed Type Febuxostat 40 mg PO DAILY 02/11/20 11/04/21 History Levothyroxine Sodium [Synthroid] 150 mcg PO DAILY 02/11/20 11/04/21 History Sertraline HCl [Zoloft] 100 mg PO DAILY 02/11/20 11/04/21 History Simvastatin 40 mg PO DAILY 02/11/20 11/04/21 History Melatonin 3 mg PO HS 11/04/21 11/04/21 History Acetaminophen Tab [Tylenol] 650 mg PO Q6HR PRN tab 11/12/21 Rx Heparin Sodium,Porcine (1 ml) 5,000 unit SQ Q12HR 30 Days #60 11/12/21 Rx [Heparin Sodium] each Midodrine [ProAmatine] 5 mg PO AC-TID tab 11/12/21 Rx guaiFENesin [Mucinex] 600 mg PO Q12HR tab 11/12/21 Rx Allergies Allergy/AdvReac Type Severity Reaction Status Date / Time No Known Allergies Allergy Verified 03/05/22 02:32 Physical Exam Vitals: Vital Signs Temp Pulse Resp BP Pulse Ox 05/29/24 11:04 98.5 F 59 L 16 139/88 98 Intake and Output 05/28/24 05/29/24 05/29/24 22:59 06:59 14:59 Other: Weight 122.13 kg Sleep Note - Sleep Data ESS Total: 10 - Sleep Note Sleep Note: Temperature: 98.5 F Pulse Rate: 59 Respiratory Rate: 16 Blood Pressure: 139/88 SpO2: 98 Height: 4 ft 9 in Weight: 122.13 kg BMI: Neck Circumference: 20
== END ==
LOC: 3 N SLEEP 10:28
PROVIDERS: ATTEND Internal Medicine
DX: G47.33 Obstructive sleep apnea (adult) (pediatric) (principal); H54.7 Unspecified visual loss; E66.9 Obesity, unspecified; Z68.45 Body mass index [BMI] 70 or greater, adult; I11.0 Hypertensive heart disease with heart failure; I50.9 Heart failure, unspecified; E11.9 Type 2 diabetes mellitus without complications; F41.9 Anxiety disorder, unspecified; F32.A Depression, unspecified; E78.5 Hyperlipidemia, unspecified; Z98.890 Other specified postprocedural states; Z86.79 Personal history of other diseases of the circulatory system
CPT/HCPCS: 99211

== ENCOUNTER 2024-12-26 21:06 | Emergency (ER) | payer MEDICARE, OTHER ==
[2024-12-26 21:19] VITALS: RESP 17
--- NOTE | 2024-12-26 21:31 | ED ---
Fall HPI - General Chief Complaint: Fall Stated Complaint: Back Pain Time Seen by Provider: 12/26/24 21:22 Source: patient, RN notes reviewed Mode of arrival: EMS Limitations: no limitations - History of Present Illness Initial Comments: This is a 54-year-old male who presents to the emergency department for a fall. Patient was getting ready to take a shower and states that he still had his socks on, causing him to slip on the floor. When he slipped he landed on his back and also hit his head. Denies any loss of consciousness. Not taking any blood thinners. Currently complains of a headache, neck pain, and back pain. States that he has pain in both the upper and lower back. Denies any pain in his extremities or abdomen. Denies any chest pain or shortness of breath. Not experiencing any dizziness, nausea, or vomiting. MD Complaint: fall - Related Data Home Medications Medication Instructions Recorded Confirmed Febuxostat 40 mg PO DAILY 02/11/20 11/04/21 Levothyroxine Sodium [Synthroid] 150 mcg PO DAILY 02/11/20 11/04/21 Sertraline HCl [Zoloft] 100 mg PO DAILY 02/11/20 11/04/21 Simvastatin 40 mg PO DAILY 02/11/20 11/04/21 Melatonin 3 mg PO HS 11/04/21 11/04/21 Previous Rx's Medication Instructions Recorded Acetaminophen Tab [Tylenol] 650 mg PO Q6HR PRN tab 11/12/21 Heparin Sodium,Porcine (1 ml) 5,000 unit SQ Q12HR 30 Days #60 11/12/21 [Heparin Sodium] each Midodrine [ProAmatine] 5 mg PO AC-TID tab 11/12/21 guaiFENesin [Mucinex] 600 mg PO Q12HR tab 11/12/21 Allergies Allergy/AdvReac Type Severity Reaction Status Date / Time No Known Allergies Allergy Verified 12/26/24 21:19 Review of Systems ROS Statement: Those systems with pertinent positive or pertinent negative responses have been documented in the HPI. ROS Other: All systems not noted in ROS Statement are negative. Past Medical History Past Medical History: Diabetes Mellitus, Hyperlipidemia, Hypertension, Sleep Apnea/CPAP/BIPAP, Thyroid Disorder Additional Past Medical History / Comment(s): hydrocephalus, osteomylitis, legally blind, depression/anxiety, snoring, headaches History of Any Multi-Drug Resistant Organisms: None Reported Past Surgical History: No Surgical Hx Reported Additional Past Surgical History / Comment(s): umbilical hernia, pacemaker Past Psychological History: Anxiety, Depression Smoking Status: Never smoker Past Alcohol Use History: None Reported Past Drug Use History: None Reported - Past Family History Mother Brother(s) Family Medical History: Hypertension uncle Family Medical History: Hypertension General Exam Limitations: no limitations General appearance: alert, in no apparent distress Head exam: Present: atraumatic, normocephalic, normal inspection Eye exam: Present: PERRL, EOMI Respiratory exam: Present: normal lung sounds bilaterally. Absent: respiratory distress, wheezes, rales, rhonchi, stridor Cardiovascular Exam: Present: regular rate, normal rhythm GI/Abdominal exam: Present: soft. Absent: distended, tenderness Neurological exam: Present: alert, oriented X3, CN II-XII intact Psychiatric exam: Present: normal affect, normal mood Skin exam: Present: warm, dry, intact, normal color. Absent: rash Course Vital Signs 12/26/24 21:13 Pulse Rate 66 Respiratory 17 Rate Blood Pressure 140/89 O2 Sat by Pulse 95 Oximetry Medical Decision Making - Medical Decision Making This is a 54 year old male who presents to the emergency department for a fall. Was pt. sent in by a medical professional or institution? @ -No Did you speak to anyone other than the patient for history? @ -No Did you review nursing and triage notes? @ -Yes, and I agree, it is accurate with regards to the patient's symptoms. Were old charts reviewed? @ -No Differential Diagnosis? @ -Differential Diagnosis Head Injury: Contusion, hematoma, intracranial hemorrhage, skull fracture, whiplash, concussion, this is not meant to be an all-inclusive list. EKG interpreted by me (3pts min.)? @ -Not obtained X-rays interpreted by me (1pt min.)? @ -Not obtained CT interpreted by me (1pt min.)? @ -Computed tomography scan of the brain and c-spine obtained. My interpretation identifies no evidence of an acute intracranial hemorrhage, skull fracture, or cervical spine fracture. CT scan of the thoracic and lumbar spine obtained. My interpretation identifies no acute fractures. U/S interpreted by me (1pt. min.)? @ -Not obtained What testing was considered but not performed? (CT, X-rays, U/S, labs)? Why? @ -None What meds were considered but not given? Why? @ -None Did you discuss the management of the patient with other professionals? @ -No Did you reconcile home meds? @ -No Was smoking cessation discussed for >3mins.? @ -No Was critical care preformed (if so, how long)? @ -No Were there social determinants of health that impacted care today? How? (Homelessness, low income, unemployed, alcoholism, drug addiction, transportation, low edu. Level, literacy, decrease access to med. care, care home, rehab)? @ -No Was there de-escalation of care discussed even if they declined? (Discuss DNR or withdrawal of care, Hospice)? @ -No What co-morbidities impacted this encounter? (DM, HTN, Smoking, COPD, CAD, Cancer, CVA, Hep., AIDS, mental health diagnosis, sleep apnea, morbid obesity)? @ -DM, hydrocephalus, visual impairment Was patient admitted / discharged? @ -Discharged. CT scan of the brain/C-spine obtained revealing no acute intracranial abnormality or signs of a cervical spine fracture. CT scan of the thoracic and lumbar spine obtained as well also revealing no acute injuries. Pain was treated in the emergency department. Advised ibuprofen and Tylenol as needed for any additional discomfort and follow-up with his primary care provider. Patient discharged back to nursing home with staff member in stable condition. Case discussed with ED attending Dr. Sibley. Return precautions reviewed in depth, the patient is instructed to return to the emergency department with any new, worsening, or concerning symptoms. Patient and nursing home staff member verbalized understanding. Undiagnosed new problem with uncertain prognosis? @ -None Drug Therapy requiring intensive monitoring for toxicity (Heparin, Nitro, Insulin, Cardizem)? @ -None Were any procedures done? @ -None Diagnosis/symptom? @ -Fall, head injury, back contusion Acute, or Chronic, or Acute on Chronic? @ -Acute Uncomplicated (without systemic symptoms) or Complicated (systemic symptoms)? @ -Uncomplicated Side effects of treatment? @ -None Exacerbation, Progression, or Severe Exacerbation] @ -Not applicable Poses a threat to life or bodily function? @ -No - Radiology Data Radiology results: report reviewed, image reviewed Disposition Clinical Impression: Fall, Head injury, Back pain Disposition: HOME SELF-CARE Instructions (If sedation given, give patient instructions): Head Injury (ED), Back Pain (ED), Fall Prevention (ED) Additional Instructions: Return to the emergency department with any new, worsening, or concerning symptoms. Alternate with ibuprofen and Tylenol as needed for any additional headaches or back pain. Follow-up with your primary care provider. Is patient prescribed a controlled substance at d/c from ED?: No Referrals: Luis Manuel Rodriguez MD [Primary Care Provider] - 1-2 days Time of Disposition: 22:59
[2024-12-26] MEDS: MORPHINE SULFATE 4 MG/ML SYRINGE IVP STA (21:44)
[2024-12-26] MEDS: MORPHINE SULFATE 4 MG/ML SYRINGE IM STA (21:56)
--- NOTE | 2024-12-26 22:40 | CT ---
EXAMINATION TYPE: CT brain cspine wo con CT DLP: Combined DLP of 4704.5 mGycm, Automated exposure control for dose reduction was used. DATE OF EXAM: 12/26/2024 10:06 PM COMPARISON: CT cervical spine 11/14/2024, CT brain 06/06/2023. CLINICAL INDICATION:Male, 54 years old with history of Fall, head injury, back pain; fall from standi ng no LOC no thinners. head injury, pain TECHNIQUE: Brain: Multiple axial CT images of the brain were obtained without IV contrast. Cspine: Axial CT images from the skull base to the inferior aspect of T2 we obtained without intraven ous contrast. Coronal and sagittal reformatted images were also reviewed. FINDINGS: Brain: Extra-axial spaces: No abnormal extra-axial fluid collections. Quan cisterna magna. Ventricular system: Within normal limits Cerebral parenchyma: No acute intraparenchymal hemorrhage or mass effect. The russell-white junction is well differentiated. Cerebellum: Unremarkable. Mass effect: No evidence of midline shift. Intracranial vasculature: unremarkable Soft tissues: Calcification of the bilateral ears redemonstrated. Calvarium/osseous structures: No depressed skull fracture. Paranasal sinuses and mastoid air cells: Cerumen within the right external auditory canal. The bilate ral mastoid air cells are clear. Mild mucosal thickening of the sphenoid sinus. Mild mucosal thickeni ng of the left maxillary sinus. Near-complete opacification of the right maxillary sinus. Moderate mu cosal thickening of the ethmoid sinuses. Aplasia of the right frontal sinus. Debris within the left f rontal sinus. Visualized orbits: Orbital contents are intact. Cervical spine: Fracture: None. Osseous structures: Multilevel disc space narrowing with endplate sclerosis. Vertebral alignment: Within normal limits. Spinal canal/Neural Foramina: Disc osteophyte complexes at C3-C4 and C5-C6 with at least mild spinal canal stenosis. Facet joint uncovertebral joint arthropathy scattered throughout the cervical spine w ith varying degrees of neural foraminal stenosis. Neck soft tissues: Prevertebral soft tissues are within normal limits. Other: The airway is patent. The lung apices are clear. Anterior left chest wall cardiac pacemaker de vice with 2 leads identified. IMPRESSION: 1. No acute intracranial process. 2. Paranasal sinus disease. 3. No evidence of cervical spine fracture. 4. Mild multilevel degenerative disc disease. [facility], , 12/26/2024 10:38 PM
--- NOTE | 2024-12-26 22:53 | CT ---
EXAMINATION TYPE: CT thor lumbar spine wo con CT DLP: Combined DLP of 4704.5 mGycm, Automated exposure control for dose reduction was used. DATE OF EXAM: 12/26/2024 10:26 PM CLINICAL INDICATION:Male, 54 years old with history of Fall, head injury, back pain; fall from standi ng no LOC no thinners. head injury, pain COMPARISON: None TECHNIQUE: Axial images of the thoracic and lumbar spine were obtained without contrast. Coronal and sagittal reformats were performed. CT Contrast: Contrast used: none. Oral contrast used: none. FINDINGS: Thoracic: The thoracic vertebral bodies have preserved heights and alignment. Mild dextrocurvature of the thor acolumbar spine. Multilevel disc space narrowing with anterior osteophytosis. Multilevel small propeller inspector ior disc osteophyte complex at T5-T6, T6-T7, T8-T9, and T11-T12. Resultant mild spinal canal stenosis . No significant neural foraminal stenosis identified. Lumbar: Alignment: There are 5 lumbar type vertebral bodies. Grade 1 anterolisthesis of L4 on L5 and L5 on S1 . No pars defects. Mild dextrocurvature of the thoracolumbar spine. Bone: No evidence of fracture is identified. Prominent Schmorl's node involving the superior endplat e of the L3 vertebral body. Multilevel facet arthropathy of the lower lumbar spine. Both SI joints ar e intact with degenerative disease. Discs: T12-L1: Posterior osteophyte with calcified bilateral ligamentum flavum buckling. Results in moderate spinal canal stenosis. Severe left and moderate right neural foraminal stenosis. L1-L2: No spinal canal stenosis. Bilateral facet arthropathy. Moderate bilateral neural foraminal sherrie nosis. L2-L3: Calcified posterior osteophyte with calcified ligamentum flavum buckling and bilateral facet a rthropathy. Results in moderate spinal canal stenosis. [id number] bilateral neural foraminal st enosis. L3-L4: Broad-based disc bulge with calcified ligamentum flavum buckling and bilateral facet arthropat hy. Mild spinal canal stenosis. Mild bilateral neural foraminal stenosis. L4-L5: No spinal canal stenosis. Bilateral facet arthropathy. No significant neural foraminal stenos is. L5-S1: No spinal canal stenosis. Bilateral facet arthropathy. Mild bilateral neuroforaminal stenosis. Anterior left chest wall to lead cardiac pacemaking device with 2 leads terminating in the right vent ricle and right atrium. Cardiomegaly. Mild bilateral lower lobe dependent subsegmental atelectasis. L eft upper lobe subpleural calcified granuloma. Bilateral simple appearing renal cyst. No follow-up re commended. Left adrenal gland 1.5 cm fat-containing benign myelolipoma. IMPRESSION: 1. No definitive evidence of fracture of the thoracolumbar spine. 2. Multilevel degenerative disc disease and facet arthropathy as described above. [facility], , 12/26/2024 10:50 PM
[2024-12-26 23:11] VITALS: BP 94/62; PULSE 55
== END 2024-12-26 23:25 | disposition home or self-care (01) ==
LOC: EC 21:06
DX: S30.0XXA Contusion of lower back and pelvis, initial encounter (principal); S09.90XA Unspecified injury of head, initial encounter; W01.0XXA Fall on same level from slipping, tripping and stumbling without subsequent striking against object, initial encounter
CPT/HCPCS: 72128; 72125; 72131; 70450; 99284; 96372; J2270